=== PATIENT | female | born 1965 | race Caucasian/White ===

== ENCOUNTER → 2017-03-11 | Outpatient (CLI) | payer MEDICARE, OTHER ==
--- NOTE | 2017-03-11 15:10 | XR ---
Lumbar spine with flexion and extension views HISTORY: Low back pain 4 views of the lumbar spine submitted. Bone mineralization is reduced. Number vertebral bodies show preserved height and alignment. There is multilevel spondylosis. Some mild loss of disc height at the intervertebral levels. Sclerosis presen t in the posterior elements of the lower lumbar spine. Flexion and extension views show stable and an atomic alignment. Vascular calcifications noted incidentally. IMPRESSION: Osteopenia, degenerative disc disease and facet arthropathy.
--- NOTE | 2017-03-11 15:12 | XR ---
Bilateral hips HISTORY: Left hip pain 2 views of the left and 2 views of the right hip are submitted. No comparisons Bone mineralization is reduced. There is mild loss of joint space within the hips. Alignment is maint ained. Mild marginal spurring noted at the left hip. IMPRESSION: Some mild osteoarthritic change is suspected.
--- NOTE | 2017-03-11 15:12 | XR ---
Sacroiliac joints HISTORY: Pain, M 54.5 There are 2 views of each sacroiliac joints submitted on a total of 3 images. There is no ankylosis, erosion, or significant hypertrophic change. Bone mineralization is reduced. T here are probable vascular calcifications within the pelvis. IMPRESSION: Osteopenia.
== END | disposition home or self-care (01) ==
LOC: RADXRMAIN 14:20
PROVIDERS: ATTEND Psychiatry & Neurology Neurology
DX: M51.36 Other intervertebral disc degeneration, lumbar region (principal); M46.86 Other specified inflammatory spondylopathies, lumbar region; M85.88 Other specified disorders of bone density and structure, other site; M53.3 Sacrococcygeal disorders, not elsewhere classified; M25.559 Pain in unspecified hip
CPT/HCPCS: 72114; 72202; 73521

== ENCOUNTER 2017-04-05 16:24 | Inpatient (IN) | payer MEDICARE, OTHER ==
[2017-04-05] MEDS ORDERED: ONDANSETRON 4 MG/2 ML VIAL IVP STA ×2 (17:16→20:13)
[2017-04-05] MEDS ORDERED: HYDROmorphone 1 MG/ML 1 ML SYRINGE IVP STA ×2 (17:16→19:09)
[2017-04-05] MEDS: SODIUM CHLORIDE 0.9% 1,000 ML IV SCH (17:58)
--- NOTE | 2017-04-05 18:24 | ED ---
General Adult HPI - General Chief complaint: Abdominal Pain Stated complaint: left side abdominal swelling Time Seen by Provider: 04/05/17 16:51 Source: patient Mode of arrival: ambulatory Limitations: no limitations - History of Present Illness Initial comments: The patient is a 51-year-old female who presents to the ED with a chief complaint of dysuria and lower back pain. Patient states that her symptoms have been present over the course of the past 3 days. Patient states that she has felt fatigued over the course the past week as well. Patient notes nausea but no vomiting. Patient denies any diarrhea. Patient denies any fevers or chills. Patient states that she has a history of autoimmune hepatitis. She states that she currently has cirrhosis as well. Patient notes that she has had a history of frequent UTIs. She notes that she has had renal failure in the past. Patient denies any history of ureteral stone. The patient notes that her urine has been discolored urine she states it has a or just brown in color. She states that she has increased urinary frequency as well as dysuria. Patient notes that she takes lactulose as well as rifaximin for her cirrhosis. She states that she often skips the lactulose secondary to the fact that it causes her to have diarrhea. Patient notes that she has a history of splenomegaly. - Related Data Home Medications Medication Instructions Recorded Confirmed Albuterol Sulfate [Proventil Hfa] 2 puff INHALATION RT-Q6H PRN 04/05/17 04/05/17 Ascorbic Acid [Vitamin C] 250 mg PO DAILY 04/05/17 04/05/17 Atorvastatin [Lipitor] 20 mg PO HS 04/05/17 04/05/17 Cyclobenzaprine [Flexeril] 10 mg PO TID PRN 04/05/17 04/05/17 Divalproex Sodium [Depakote] 500 mg PO TID 04/05/17 04/05/17 Escitalopram Oxalate [Lexapro] 20 mg PO DAILY 04/05/17 04/05/17 Ferrous Sulfate [Feosol] 325 mg PO BID-W/MEALS 04/05/17 04/05/17 Furosemide [Lasix] 40 mg PO DAILY 04/05/17 04/05/17 Gabapentin [Neurontin] 300 mg PO TID 04/05/17 04/05/17 HYDROcodone/APAP 7.5-325MG [[place] 1 tab PO Q8H PRN 04/05/17 04/05/17 7.5-325] LORazepam [Ativan] 1 mg PO BID PRN 04/05/17 04/05/17 Lactulose 20 gm PO BID 04/05/17 04/05/17 Levothyroxine Sodium [Synthroid] 300 mcg PO QAM 04/05/17 04/05/17 Linagliptin [Tradjenta] 5 mg PO DAILY 04/05/17 04/05/17 Liothyronine Sodium [Cytomel] 5 mcg PO DAILY 04/05/17 04/05/17 Lisinopril [Zestril] 20 mg PO DAILY 04/05/17 04/05/17 Lurasidone HCl [Latuda] 20 mg PO W/SUPPER 04/05/17 04/05/17 Pioglitazone [Actos] 15 mg PO DAILY 04/05/17 04/05/17 Potassium Chloride ER [K-Dur 10] 10 meq PO DAILY 04/05/17 04/05/17 Ranitidine HCl [Zantac] 150 mg PO HS 04/05/17 04/05/17 Rifaximin [Xifaxan] 550 mg PO BID 04/05/17 04/05/17 Sennosides-Docusate Sodium 2 tab PO BID PRN 04/05/17 04/05/17 [Senokot-S] Ursodiol [Actigall] 300 mg PO BID 04/05/17 04/05/17 Venlafaxine HCl ER [Effexor Xr] 37.5 mg PO DAILY 04/05/17 04/05/17 Zolpidem [Ambien] 10 mg PO HS PRN 04/05/17 04/05/17 glipiZIDE [Glucotrol] 5 mg PO AC-BID 04/05/17 04/05/17 metFORMIN HCL [Metformin HCl] 1,000 mg PO BID-W/MEALS 04/05/17 04/05/17 traZODone HCL 100 mg PO HS 04/05/17 04/05/17 Allergies Allergy/AdvReac Type Severity Reaction Status Date / Time morphine Allergy Itching Verified 04/05/17 17:55 Review of Systems ROS Statement: Those systems with pertinent positive or pertinent negative responses have been documented in the HPI. ROS Other: All systems not noted in ROS Statement are negative. Constitutional: Denies: fever, chills, weakness Eyes: Denies: vision change ENT: Denies: ear pain, throat pain, dental pain Respiratory: Denies: cough, dyspnea, wheezes, hemoptysis Cardiovascular: Denies: chest pain Endocrine: Reports: fatigue Gastrointestinal: Reports: abdominal pain (lower back pain), nausea. Denies: vomiting, diarrhea, constipation Genitourinary: Reports: urgency, dysuria, frequency. Denies: hematuria Musculoskeletal: Reports: back pain Skin: Denies: rash, lesions, change in color Neurological: Denies: headache, weakness Psychiatric: Denies: anxiety, depression Past Medical History Past Medical History: Cancer, Diabetes Mellitus, Hypertension, Renal Disease, Rheumatoid Arthritis (RA), Thyroid Disorder Additional Past Medical History / Comment(s): Liver cirrhosis, heat murmor History of Any Multi-Drug Resistant Organisms: None Reported, MRSA Date of last positivie culture/infection: 2007 MDRO Source:: ankle Past Surgical History: Section, Cholecystectomy, Ear Surgery, Heart Catheterization, Hysterectomy, Joint Replacement, Orthopedic Surgery, Tonsillectomy Additional Past Surgical History / Comment(s): thyroid, bilateral knees Past Psychological History: Bipolar Smoking Status: Never smoker Past Alcohol Use History: None Reported Past Drug Use History: None Reported General Exam Limitations: no limitations General appearance: alert, in no apparent distress Head exam: Present: atraumatic, normocephalic Eye exam: Present: normal appearance, PERRL Pupils: Present: normal accommodation ENT exam: Present: normal exam, mucous membranes dry Neck exam: Present: normal inspection, full ROM Respiratory exam: Present: normal lung sounds bilaterally. Absent: respiratory distress, wheezes, rales, rhonchi, stridor Cardiovascular Exam: Present: regular rate, normal rhythm GI/Abdominal exam: Present: soft, tenderness (tenderness in the bilateral flank) . Absent: distended, guarding, rebound Extremities exam: Present: normal inspection, full ROM. Absent: tenderness Back exam: Present: tenderness (mild tenderness in the bilateral flank region) Neurological exam: Present: alert, oriented X3 Psychiatric exam: Present: normal affect, normal mood Skin exam: Present: warm, dry, intact, other (slight jaundice) Course Vital Signs 04/05/17 04/05/17 16:32 19:01 Temperature 96.9 F L Pulse Rate 104 H 103 H Respiratory 18 18 Rate Blood Pressure 116/71 129/60 O2 Sat by Pulse 97 94 L Oximetry EKG Findings - EKG Comments: EKG Findings:: EKG demonstrates normal sinus rhythm with a rate of 96. There are no concerning ST or T-wave changes. [place] and QRS intervals are within normal limits. Medical Decision Making - Medical Decision Making Patient is a 51-year-old female who presents to ED with a chief complaint of dysuria and lower back pain. Patient states that her symptoms have been present over the course the past 3-4 days. She notes that she has felt fatigued over the course the past week. Patient is immunocompromised secondary to autoimmune hepatitis, insulin-dependent diabetes. Will check an ultrasound of the abdomen to examine for any acute abnormality, including ascites or hydronephrosis of the kidneys. Will check CBC, BMP, Mag. Check urinalysis and urine culture. Provide with Dilaudid for pain control. 7:11 PM Spoke with Lucila Sandhu NP, who accepts admission of the patient. Patient is noted to have persistent lower back pain and UTI. She does not have a fever or elevation in her white blood cell count but is noted to be tachycardic. Concern given underlying immunocompromised status. Continue with IV fluids. Provide patient with dose of Rocephin and Gentamicin. - Lab Data Result diagrams: 04/05/17 17:55 04/05/17 17:55 Lab Results 04/05/17 04/05/17 04/05/17 Range/Units 17:55 17:55 17:55 WBC 5.4 (3.8-10.6) k/uL RBC 3.73 L (3.80-5.40) m/uL Hgb 11.0 L (11.4-16.0) gm/dL Hct 33.2 L (34.0-46.0) % MCV 88.8 (80.0-100.0) fL MCH 29.3 (25.0-35.0) pg MCHC 33.0 (31.0-37.0) g/dL RDW 16.7 H (11.5-15.5) % Plt Count 170 (150-450) k/uL Neutrophils % 59 % Lymphocytes % 33 % Monocytes % 5 % Eosinophils % 1 % Basophils % 0 % Neutrophils # 3.2 (1.3-7.7) k/uL Lymphocytes # 1.8 (1.0-4.8) k/uL Monocytes # 0.3 (0-1.0) k/uL Eosinophils # 0.1 (0-0.7) k/uL Basophils # 0.0 (0-0.2) k/uL Anisocytosis Slight Sodium 142 (137-145) mmol/L Potassium 5.0 (3.5-5.1) mmol/L Chloride 109 H (98-107) mmol/L Carbon Dioxide 21 L (22-30) mmol/L Anion Gap 12 mmol/L BUN 21 H (7-17) mg/dL Creatinine 0.99 (0.52-1.04) mg/dL Est GFR (MDRD) Af Amer >60 (>60 ml/min/1.73 sqM) Est GFR (MDRD) Non-Af 59 (>60 ml/min/1.73 sqM) Glucose 161 H (74-99) mg/dL Calcium 8.8 (8.4-10.2) mg/dL Magnesium 1.3 L (1.6-2.3) mg/dL Total Bilirubin 0.7 (0.2-1.3) mg/dL AST 25 (14-36) U/L ALT 39 (9-52) U/L Alkaline Phosphatase 136 H (38-126) U/L Total Protein 7.5 (6.3-8.2) g/dL Albumin 4.1 (3.5-5.0) g/dL TSH 0.093 L (0.465-4.680) mIU/L Urine Color Dark Yellow Urine Appearance Cloudy H (Clear) Urine pH 5.5 (5.0-8.0) Ur Specific [place] 1.028 (1.001-1.035) Urine Protein 2+ H (Negative) Urine Glucose (UA) Negative (Negative) Urine Ketones 1+ H (Negative) Urine Blood Small H (Negative) Urine Nitrite Negative (Negative) Urine Bilirubin 1+ H (Negative) Urine Urobilinogen 6.0 (<2.0) mg/dL Ur Leukocyte Esterase Large H (Negative) Urine RBC 18 H (0-5) /hpf Urine WBC >182 H (0-5) /hpf Urine WBC Clumps Many H (None) /hpf Ur Squamous Epith Cells 4 (0-4) /hpf Amorphous Sediment Rare H (None) /hpf Urine Bacteria Occasional H (None) /hpf Hyaline Casts 31 H (0-2) /lpf Urine Mucus Few H (None) /hpf Disposition Clinical Impression: Acute UTI, Immunocompromised state, Flank pain Disposition: ADMITTED IP TO THIS HOSP Condition: Stable Referrals: None,Stated [REFERRING] - 1-2 days Decision to Admit Reason: Admit from EC Decision Date: 04/05/17 Decision Time: 19:14
[2017-04-05 18:25] LABS: ALT 39 U/L (9-52); AST 25 U/L (14-36); Alkaline Phosphatase 136 U/L (38-126); Anion Gap 12 mmol/L; Blood Urea Nitrogen 21 mg/dL (7-17); Calcium 8.8 mg/dL (8.4-10.2); Carbon Dioxide 21 mmol/L (22-30); Chloride 109 mmol/L (98-107); Glucose 161 mg/dL (74-99); Magnesium 1.3 mg/dL (1.6-2.3); Non-African American GFR(MDRD) 59 (>60 ml/min/1.73 sqM); Sodium 142 mmol/L (137-145); Total Bilirubin 0.7 mg/dL (0.2-1.3); Total Protein 7.5 g/dL (6.3-8.2)
[2017-04-05 18:31] LABS: Amorphous Sediment,Urine Rare /hpf; Anisocytosis Slight; Appearance,Urine Cloudy (Clear); Bacteria,Urine Occasional /hpf; Basophils % (A) 0 %; Bilirubin,Urine 1+ (Negative); CH 29.2; Eosinophils # (A) 0.1 k/uL (0-0.7); Eosinophils % (A) 1 %; Glucose,Urine (UA) Negative (Negative); HCT 33.2 % (34.0-46.0); HDW 3.27; Ketones,Urine 1+ (Negative); Leukocyte Esterase,Urine Large (Negative); Luc # (Auto) 0.09; Luc % (Auto) 2; Lymphocytes # (A) 1.8 k/uL (1.0-4.8); Lymphocytes % (A) 33 %; MCH 29.3 pg (25.0-35.0); MCV 88.8 fL (80.0-100.0); Mean Platelet Volume 7.5; Monocytes # (A) 0.3 k/uL (0-1.0); Monocytes % (A) 5 %; Mucus,Urine Few /hpf; Neutrophils # (A) 3.2 k/uL (1.3-7.7); Neutrophils % (A) 59 %; Nitrite,Urine Negative (Negative); PH, Urine 5.5 (5.0-8.0); Particle Count 10131; Protein,Urine 2+ (Negative); RBC 3.73 m/uL (3.80-5.40); RBC,Urine 18 /hpf (0-5); RDW 16.7 % (11.5-15.5); Specific Gravity,Urine 1.028 (1.001-1.035); Squamous Epithelial Cell,Urine 4 /hpf (0-4); UA Billing (MACRO vs. MICRO) MICRO; WBC 5.4 k/uL (3.8-10.6); WBC (Perox) 5.49; WBC,Urine >182 /hpf (0-5)
--- NOTE | 2017-04-05 18:49 | US ---
EXAMINATION TYPE: US abdomen complete DATE OF EXAM: 04/05/2017 COMPARISON: NONE CLINICAL HISTORY: Bilateral flank pain. Left upper abdomen pain. Difficult/limited exam due to patient body habitus and overlying bowel gas EXAM MEASUREMENTS: Liver Length: 20.7 cm Gallbladder Wall: Surgically absent CBD: 0.4cm Spleen: 17.1 cm Right Kidney: 10.6 x 3.7 x 5.1 cm Left Kidney: 10.4 x 4.8 x 4.4 cm Pancreas: Obscured by bowel gas Liver: Increased attenuation, enlarged, heterogeneous, nodular appearing contour Gallbladder: Surgically absent Evidence for sonographic García's sign: No CBD: wnl as visualized, distal portion obscured by bowel gas Spleen: Enlarged Right Kidney: No hydronephrosis or masses seen Left Kidney: No hydronephrosis or masses seen Upper IVC: wnl Abd Aorta: Limited visualization due to overlying bowel, wnl as visualized All four quadrants scanned, No ascites visualized IMPRESSION: There is splenomegaly. No dilated ducts. Cholecystectomy noted.
[2017-04-05] MEDS ORDERED: GENTAMICIN 200 MG in SODIUM CHLORIDE 0.9% 100 ML IV ONE (19:00)
[2017-04-05] MEDS ORDERED: HYDROcodone/APAP 5-325MG 1 EACH TAB PO PRN (19:14)
[2017-04-05] MEDS ORDERED: NALOXONE 0.4 MG/ML 1 ML VIAL IV PRN (19:14)
[2017-04-05] MEDS: MAGNESIUM SULFATE-D5W PMX 1 GM in DEXTROSE/WATER 1 100ML.BAG IVPB SCH ×2 (21:25→22:27)
[2017-04-05 21:26] LABS: Glucose,Whole Blood 170 mg/dL (75-99)
[2017-04-05] MEDS ORDERED: LORazepam 1 MG TAB PO PRN (21:29)
[2017-04-05] MEDS ORDERED: ALBUTEROL NEBULIZED 2.5 MG/3 ML INHALATION PRN (21:29)
[2017-04-05] MEDS: LACTULOSE 20 GM/30 ML CUP PO SCH (22:51)
[2017-04-05] MEDS: traZODone HCL 100 MG TAB PO SCH (23:21)
[2017-04-05] MEDS: DIVALPROEX 500 MG TABLET.DR PO SCH (23:21)
[2017-04-05] MEDS: FAMOTIDINE 20 MG TAB PO SCH (23:21)
[2017-04-05] MEDS: ZOLPIDEM 10 MG TAB PO PRN (23:23)
[2017-04-05] MEDS: INSULIN LISPRO (humaLOG) 300 UNIT/3 ML VIAL SQ SCH (23:29)
[2017-04-05] MEDS: HYDROmorphone 1 MG/ML 1 ML SYRINGE IV PRN (23:33)
[2017-04-05 23:47] LABS: Glucose,Whole Blood 229 mg/dL (75-99)
[2017-04-06] MEDS: LEVOTHYROXINE 100 MCG TAB PO SCH (05:33)
[2017-04-06] MEDS: SODIUM CHLORIDE 0.9% 1,000 ML IV SCH ×2 (05:34→20:30)
[2017-04-06] MEDS: HYDROmorphone 1 MG/ML 1 ML SYRINGE IV PRN ×3 (06:09→21:04)
[2017-04-06 07:29] LABS: Glucose,Whole Blood 151 mg/dL (75-99)
[2017-04-06] MEDS: DIVALPROEX 500 MG TABLET.DR PO SCH ×3 (08:07→21:03)
[2017-04-06] MEDS: VENLAFAXINE HCL ER 37.5 MG CAP PO SCH (08:07)
[2017-04-06] MEDS: ASCORBIC ACID 500 MG TAB PO SCH (08:07)
[2017-04-06] MEDS: metFORMIN 500 MG TAB PO SCH ×2 (08:07→17:21)
[2017-04-06] MEDS: glipiZIDE 5 MG TAB PO SCH ×2 (08:07→17:21)
[2017-04-06] MEDS: LISINOPRIL 20 MG TAB PO SCH (08:08)
[2017-04-06] MEDS: ESCITALOPRAM 20 MG TAB PO SCH (08:08)
[2017-04-06] MEDS: LINAGLIPTIN 5 MG TABLET PO SCH (08:08)
[2017-04-06] MEDS: LIOTHYRONINE SODIUM 5 MCG TAB PO SCH (08:08)
[2017-04-06] MEDS: RIFAXIMIN 550 MG TABLET PO SCH ×2 (08:08→21:03)
[2017-04-06] MEDS: PIOGLITAZONE 15 MG TAB PO SCH (08:08)
[2017-04-06] MEDS: URSODIOL 300 MG CAP PO SCH ×2 (08:09→20:32)
[2017-04-06] MEDS: LACTULOSE 20 GM/30 ML CUP PO SCH ×2 (08:09→20:32)
[2017-04-06 08:10] LABS: Anisocytosis Slight; CH 28.7; CHCM 31.2; HCT 29.3 % (34.0-46.0); HDW 3.17; Hypochromasia Moderate; MCH 29.3 pg (25.0-35.0); MCHC 31.6 g/dL (31.0-37.0); MCV 92.6 fL (80.0-100.0); Mean Platelet Volume 6.7; RBC 3.16 m/uL (3.80-5.40); RDW 16.5 % (11.5-15.5); WBC 4.6 k/uL (3.8-10.6); WBC (Perox) 4.62
[2017-04-06 08:12] LABS: INR 1.1 (<1.1); Prothrombin Time 10.7 sec (9.0-12.0)
[2017-04-06] MEDS: HYDROcodone/APAP 5-325MG 1 EACH TAB PO PRN ×2 (08:15→17:24)
[2017-04-06] MEDS: INSULIN LISPRO (humaLOG) 300 UNIT/3 ML VIAL SQ SCH ×4 (08:15→21:17)
[2017-04-06 08:28] LABS: HGB 9.3 gm/dL (11.4-16.0)
[2017-04-06 08:33] LABS: ALT 27 U/L (9-52); AST 24 U/L (14-36); Alkaline Phosphatase 103 U/L (38-126); Anion Gap 9 mmol/L; Blood Urea Nitrogen 21 mg/dL (7-17); Carbon Dioxide 22 mmol/L (22-30); Chloride 110 mmol/L (98-107); Glucose 150 mg/dL (74-99); Magnesium 1.8 mg/dL (1.6-2.3); Non-African American GFR(MDRD) >60 (>60 ml/min/1.73 sqM); Phosphorous 4.3 mg/dL (2.5-4.5); Potassium 5.4 mmol/L (3.5-5.1); Sodium 141 mmol/L (137-145); Total Bilirubin 0.6 mg/dL (0.2-1.3); Total Protein 6.4 g/dL (6.3-8.2)
[2017-04-06] MEDS ORDERED: POTASSIUM CHLORIDE ER 10 MEQ TAB.ER.PRT PO SCH (09:00)
[2017-04-06 10:36] LABS: Add Differential Manual Differential
[2017-04-06 11:11] LABS: Metamyelocytes % 0.5 %; Nucleated Red Blood Cells 0 /100 WBC (0-0); Total Cells Counted 200
[2017-04-06 11:14] LABS: Manual Review Performed; RBC Morphology Normal
[2017-04-06 12:06] LABS: Glucose,Whole Blood 148 mg/dL (75-99)
[2017-04-06] MEDS ORDERED: SENNOSIDES-DOCUSATE SODIUM 1 EACH TAB PO PRN (16:16)
[2017-04-06] MEDS ORDERED: CYCLOBENZAPRINE 10 MG TAB PO PRN (16:16)
[2017-04-06] MEDS: LURASIDONE 40 MG TAB PO SCH (17:21)
[2017-04-06 17:22] LABS: Glucose,Whole Blood 120 mg/dL (75-99)
[2017-04-06] MEDS: FERROUS SULFATE 325 MG TAB PO SCH (17:22)
[2017-04-06] MEDS: ATORVASTATIN 20 MG TAB PO SCH (20:30)
[2017-04-06] MEDS: FAMOTIDINE 20 MG TAB PO SCH (20:31)
[2017-04-06] MEDS: traZODone HCL 100 MG TAB PO SCH (20:32)
[2017-04-06] MEDS: GABAPENTIN 300 MG CAP PO SCH (21:04)
[2017-04-06 21:42] LABS: Glucose,Whole Blood 102 mg/dL (75-99)
[2017-04-06] MEDS: ZOLPIDEM 10 MG TAB PO PRN (22:24)
--- NOTE | 2017-04-06 22:52 | HP ---
CHIEF COMPLAINTS: Abdominal pain and dysuria. HISTORY OF PRESENT ILLNESS: This is a 51-year-old woman with a past history medical history of multiple medical problems, including diabetes mellitus type 2, history of hypertension, history of renal disease, history of rheumatoid arthritis, hypothyroidism, liver cirrhosis, heart murmur, thyroid cancer, history of cholecystectomy, history of section being followed by primary physician in [facility], was having increased dysuria and other symptomatology. Patient was complaining of back pain. Because of concern of UTI, patient came to [facility] and was admitted for further evaluation and treatment. The potassium was found to be 5.4, sugars elevated and history of UTI. Patient admitted for further evaluation and treatment. The white count is 5.5, hemoglobin is 11. There is no history of any fever, rigors, chills. No history of headache, loss of consciousness, seizures. PAST MEDICAL HISTORY: Diabetes mellitus type 2, history of hypertension, history of chronic renal disease, history of rheumatoid arthritis, hypothyroidism, liver cirrhosis, heart murmur, thyroid cancer, history of section and cholecystectomy. Home medications prior to admission include: 1. Trazodone 100 mg p.o. q.h.s. 2. Metformin 1000 mg b.i.d. with meals. 3. Glucotrol 5 mg a.c. b.i.d. 4. Ambien 10 mg q.h.s. p.r.n. 5. Effexor-XR 37.5 mg p.o. daily. 6. Actigall 300 mg p.o. b.i.d. 7. Senokot-S 2 tablets p.o. b.i.d. p.r.n. 8. Xifaxan 150 mg p.o. b.i.d. 9. Zantac 150 mg at bedtime. 10. K-Dur 10 mg p.o. daily. 11. Actos 15 mg p.o. daily. 12. Latuda 20 mg with supper. 13. Zestril 20 mg p.o. daily. 14. Cytomel 5 mcg p.o. daily. 15. Tradjenta 5 mg p.o. daily. 16. Synthroid 300 mcg p.o. q.a.m. 17. Lactulose 20 g p.o. b.i.d. 18. Ativan 0.1 mg b.i.d. p.r.n. 19. [place] 7.5 mg q.8 p.r.n. 20. Neurontin 300 mg p.o. t.i.d. 21. Lasix 40 mg p.o. daily. 22. Iron sulfate 320 mg p.o. daily with a meal. 23. Lexapro 20 mg p.o. daily. 24. Depakote 500 mg p.o. t.i.d. 25. Flexeril 10 mg p.o. t.i.d. p.r.n. 26. Lipitor 20 mg q.h.s. 27. ( ) mg p.o. daily. 28. Proventil 2 puffs every 6 hours p.r.n. ALLERGIES ARE MORPHINE. FAMILY HISTORY: No history of heart disease or strokes in the family. SOCIAL HISTORY: No history of smoking. No history of alcohol intake. REVIEW OF SYSTEMS: ENT: No diminished hearing, diminished vision. CARDIOVASCULAR: No angina or palpitations. RESPIRATORY: As mentioned earlier. GI: No nausea. : No dysuria. NERVOUS: No numbness or weakness. ALLERGY/IMMUNOLOGY: No asthma or hay fever. MUSCULOSKELETAL: As mentioned earlier. HEMATOLOGY/ONCOLOGY: No history of anemia. ENDOCRINE: No history of diabetes. CONSTITUTIONAL: As mentioned earlier. DERMATOLOGY: Negative. RHEUMATOLOGY: Negative. PSYCHIATRY: As mentioned earlier. PHYSICAL EXAMINATION: Alert and oriented x3. Pulse is 72, blood pressure 102/50, respirations 16, temperature 97.8, pulse ox 93% on room air. HEENT: Conjunctivae normal. Oral mucosa moist. NECK: No jugular venous distention. No carotid bruits. No lymph node enlargement. CARDIOVASCULAR: S1 and S2 muffled. No S3. No S4. RESPIRATORY: Breath sounds diminished in the bases. A few scattered rhonchi. No crackles. ABDOMEN: Soft. Minimal diffuse tenderness present at the costovertebral angle. No guarding or rigidity. No mass palpable. Bowel sounds present. No hepatosplenomegaly. LEGS: No edema. No swelling. NERVOUS SYSTEM: Higher function as mentioned earlier. Moves all 4 limbs. LYMPHATIC: No lymph nodes palpable in neck, axillae or groins. SKIN: No ulcer, rash or bleeding. Labs are WBC 12.6, hemoglobin is 8.3. Potassium 5.4. Creatinine and BUN are normal. Sugars are noted. UA noted. ASSESSMENT: 1. Severe urinary tract infection with pyelonephritis with abdominal and back pain, present on admission. 2. Anemia, normocytic anemia of chronic disease. 3. Mild hyperkalemia, present on admission. 4. Dehydration, present on admission. 5. Hypomagnesemia, present on admission. 6. Mild hyperammonemia. 7. History of diabetes mellitus type 2. 8. History of hypertension, essential. 9. History of chronic renal disease without any renal failure. 10. History of rheumatoid arthritis. 11. Hypothyroidism. 12. History of liver cirrhosis. 13. History of heart murmur. 14. History of thyroid cancer. 15. History of methicillin-resistant Staphylococcus aureus. 16. History of cholecystectomy. 17. History of degenerative joint disease. 18. Bipolar, depression, not otherwise specified. 19. Obesity with a body mass index of 47.9. 20. FULL CODE. RECOMMENDATIONS AND DISCUSSION: This 51-year-old with multiple complex medical issues, will monitor the patient closely, continue with broad-spectrum IV antibiotics. Otherwise, I would also recommend cultures. Continue with the rest of the medications and DVT prophylaxis. Guarded prognosis because of multiple complex medical issues. Further recommendations to follow. See orders for further details.
[2017-04-07] MEDS: LEVOTHYROXINE 100 MCG TAB PO SCH (06:10)
[2017-04-07] MEDS: INSULIN LISPRO (humaLOG) 300 UNIT/3 ML VIAL SQ SCH ×4 (07:23→22:10)
[2017-04-07 07:51] LABS: Glucose,Whole Blood 106 mg/dL (75-99)
[2017-04-07 08:08] LABS: Anisocytosis Slight; Basophils % (A) 0 %; CH 28.6; CHCM 30.6; Eosinophils # (A) 0.1 k/uL (0-0.7); Eosinophils % (A) 2 %; HCT 29.6 % (34.0-46.0); HDW 3.13; HGB 9.1 gm/dL (11.4-16.0); Hypochromasia Marked; Luc % (Auto) 3; Lymphocytes # (A) 1.8 k/uL (1.0-4.8); Lymphocytes % (A) 48 %; MCH 28.9 pg (25.0-35.0); MCHC 30.7 g/dL (31.0-37.0); MCV 94.2 fL (80.0-100.0); Mean Platelet Volume 7.2; Monocytes # (A) 0.2 k/uL (0-1.0); Monocytes % (A) 6 %; Neutrophils # (A) 1.6 k/uL (1.3-7.7); Neutrophils % (A) 41 %; RBC 3.14 m/uL (3.80-5.40); RDW 16.8 % (11.5-15.5); WBC 3.9 k/uL (3.8-10.6); WBC (Perox) 4.22
[2017-04-07] MEDS: LACTULOSE 20 GM/30 ML CUP PO SCH ×2 (08:17→22:08)
[2017-04-07 08:20] LABS: Anion Gap 9 mmol/L; Blood Urea Nitrogen 21 mg/dL (7-17); Calcium 8.8 mg/dL (8.4-10.2); Carbon Dioxide 22 mmol/L (22-30); Chloride 109 mmol/L (98-107); Glucose 107 mg/dL (74-99); Non-African American GFR(MDRD) >60 (>60 ml/min/1.73 sqM); Potassium 5.7 mmol/L (3.5-5.1); Sodium 140 mmol/L (137-145)
[2017-04-07] MEDS: HYDROcodone/APAP 5-325MG 1 EACH TAB PO PRN ×3 (08:20→22:17)
[2017-04-07] MEDS: LIOTHYRONINE SODIUM 5 MCG TAB PO SCH (08:21)
[2017-04-07] MEDS: LISINOPRIL 20 MG TAB PO SCH (08:21)
[2017-04-07] MEDS: ESCITALOPRAM 20 MG TAB PO SCH (08:21)
[2017-04-07] MEDS: DIVALPROEX 500 MG TABLET.DR PO SCH ×3 (08:21→22:09)
[2017-04-07] MEDS: PIOGLITAZONE 15 MG TAB PO SCH (08:21)
[2017-04-07] MEDS: LINAGLIPTIN 5 MG TABLET PO SCH (08:21)
[2017-04-07] MEDS: metFORMIN 500 MG TAB PO SCH ×2 (08:21→17:38)
[2017-04-07] MEDS: glipiZIDE 5 MG TAB PO SCH ×2 (08:21→17:38)
[2017-04-07] MEDS: RIFAXIMIN 550 MG TABLET PO SCH ×2 (08:22→22:08)
[2017-04-07] MEDS: FERROUS SULFATE 325 MG TAB PO SCH ×2 (08:22→17:38)
[2017-04-07] MEDS: URSODIOL 300 MG CAP PO SCH ×2 (08:22→22:09)
[2017-04-07] MEDS: VENLAFAXINE HCL ER 37.5 MG CAP PO SCH (08:22)
[2017-04-07] MEDS: GABAPENTIN 300 MG CAP PO SCH ×3 (08:23→22:09)
[2017-04-07] MEDS: ASCORBIC ACID 500 MG TAB PO SCH (08:23)
[2017-04-07] MEDS ORDERED: SODIUM POLYSTYRENE SULFONATE 15 GM/60 ML BOTTLE PO ONE (09:57)
[2017-04-07] MEDS: SODIUM CHLORIDE 0.9% 1,000 ML IV SCH ×2 (10:56→20:20)
[2017-04-07 13:00] LABS: Glucose,Whole Blood 140 mg/dL (75-99)
[2017-04-07] MEDS: HYDROmorphone 1 MG/ML 1 ML SYRINGE IV PRN ×2 (13:26→20:21)
--- NOTE | 2017-04-07 16:29 | P.PN ---
Subjective Date of service 04/11/2017. Personal being dictated for Dr. Avila. Interval history: Is a 51-year-old female admitted with severe UTI with pyelonephritis accompanied by abdominal and back pain and multiple other medical issues. Complains of ongoing "spleen pain"and points to left upper quadrant. Mild hyperammonemia, refusing lactulose. Hyperkalemic, K5.7. Good diet intake, consuming 75-100% of cardiac diet. Positive bowel movement this morning .Afebrile, normal WBC, urine culture negative. Blood sugars controlled. Review of systems: HEENT: Denies headache or focal deficits. Denies any dizziness or lightheadedness. Respiratory: Denies any increased shortness of breath. Cardiac: Denies any chest pain, palpitations. GI: Denies any nausea, vomiting, or diarrhea. Complains of "spleen pain" : Denies any dysuria. Denies frequency or urgency. Psychiatry: Denies any anxiety or depression. Active Medications Hydrocodone Bitart/Acetaminophen ([place] 5-325) 1 each PO Q6HR PRN PRN Reason: Moderate Pain Last Admin: 04/07/17 15:12 Dose: 1 each Albuterol Sulfate (Ventolin Nebulized) 2.5 mg INHALATION RT-Q6H PRN PRN Reason: Shortness Of Breath Or Wheezing Ascorbic Acid (Vitamin C) 250 mg PO DAILY [facility] Last Admin: 04/07/17 08:23 Dose: 250 mg Atorvastatin Calcium (Lipitor) 20 mg PO [facility] Last Admin: 04/06/17 20:30 Dose: 20 mg Cyclobenzaprine HCl (Flexeril) 10 mg PO TID PRN PRN Reason: Muscle Spasm Divalproex Sodium (Depakote) 500 mg PO TID [facility] Last Admin: 04/07/17 08:21 Dose: 500 mg Escitalopram Oxalate (Lexapro) 20 mg PO DAILY [facility] Last Admin: 04/07/17 08:21 Dose: 20 mg Famotidine (Pepcid) 20 mg PO HS [facility] Last Admin: 04/06/17 20:31 Dose: 20 mg Ferrous Sulfate (Feosol) 325 mg PO BID-W/MEALS [facility] Last Admin: 04/07/17 08:22 Dose: 325 mg Gabapentin (Neurontin) 300 mg PO TID [facility] Last Admin: 04/07/17 08:23 Dose: 300 mg Glipizide (Glucotrol) 5 mg PO AC-BID [facility] Last Admin: 04/07/17 08:21 Dose: 5 mg Hydromorphone HCl (Dilaudid) 0.5 mg IV Q6H PRN PRN Reason: Severe Pain Last Admin: 04/07/17 13:26 Dose: 0.5 mg Sodium Chloride (Saline 0.9%) 1,000 mls @ 75 mls/hr IV .[id number] [facility] Last Admin: 04/07/17 10:56 Dose: Not Given Ceftriaxone Sodium 1,000 mg/ (Sodium Chloride) 50 mls @ 100 mls/hr IVPB Q24H [facility] Last Admin: 04/06/17 17:24 Dose: 100 mls/hr Insulin Human Lispro (Humalog) 0 unit SQ ACHS [facility] PRN Reason: Protocol Last Admin: 04/07/17 13:26 Dose: 1 unit Lactulose (Cephulac) 20 gm PO BID [facility] Last Admin: 04/07/17 08:17 Dose: Not Given Levothyroxine Sodium (Synthroid) 300 mcg PO QAM@0630 [facility] Last Admin: 04/07/17 06:10 Dose: 300 mcg Linagliptin (Tradjenta) 5 mg PO DAILY [facility] Last Admin: 04/07/17 08:21 Dose: 5 mg Liothyronine Sodium (Cytomel) 5 mcg PO DAILY [facility] Last Admin: 04/07/17 08:21 Dose: 5 mcg Lisinopril (Zestril) 20 mg PO DAILY [facility] Last Admin: 04/07/17 08:21 Dose: 20 mg Lorazepam (Ativan) 1 mg PO BID PRN PRN Reason: Anxiety Last Admin: 04/07/17 08:21 Dose: 1 mg Lurasidone HCl (Latuda) 20 mg PO W/SUPPER [facility] Last Admin: 04/06/17 17:21 Dose: 20 mg Metformin HCl (Glucophage) 1,000 mg PO BID-W/MEALS [facility] Last Admin: 04/07/17 08:21 Dose: 1,000 mg Naloxone HCl (Narcan) 0.2 mg IV Q2M PRN PRN Reason: Opioid Reversal Pioglitazone HCl (Actos) 15 mg PO DAILY [facility] Last Admin: 04/07/17 08:21 Dose: 15 mg Rifaximin (Xifaxan) 550 mg PO BID [facility] Last Admin: 04/07/17 08:22 Dose: 550 mg [place]/Docusate Sodium (Senokot-S) 2 each PO BID PRN PRN Reason: Constipation Trazodone HCl (Desyrel) 100 mg PO HS [facility] Last Admin: 04/06/17 20:32 Dose: 100 mg Ursodiol (Actigall) 300 mg PO BID [facility] Last Admin: 04/07/17 08:22 Dose: 300 mg Venlafaxine HCl (Effexor Xr) 37.5 mg PO DAILY [facility] Last Admin: 04/07/17 08:22 Dose: 37.5 mg Zolpidem Tartrate (Ambien) 10 mg PO HS PRN PRN Reason: Insomnia Last Admin: 04/06/17 22:24 Dose: 10 mg Objective - Vital Signs Vital signs: Vital Signs Temp 98.4 F 04/07/17 15:00 Pulse 63 04/07/17 15:00 Resp 18 04/07/17 15:00 BP 107/61 04/07/17 15:00 Pulse Ox 94 L 04/07/17 15:00 Intake & Output 04/06/17 04/07/17 04/07/17 18:59 06:59 18:59 Intake Total 887 300 Balance 887 300 Intake: Oral 887 300 Other: Voiding Method Toilet Toilet Toilet # Voids 2 1 3 # Bowel Movements 1 - Exam PHYSICAL EXAM: VITAL SIGNS: [As above] GENERAL: [Sitting up in bed, no acute distress] HEENT: [Pupils equal conjunctiva normal. No conjunctival pallor, oral mucosa moist] NECK: [Supple, no JVD] RESPIRATORY EFFORT:[ Normal] LUNGS: [Diminished, no wheezes rhonchi or crackles] CARDIOVASCULAR[ regular S1 and S2, no murmurs rubs or gallops, no edema] GI: [Abdomen soft, nondistended, minimal diffuse [place] vertebral angle tenderness, no guarding, no rigidity. No hepatosplenomegaly, positive bowel sounds.] PSYCH: [Alert and oriented -3, mood and affect normal.] NEURO: No focal deficits, moves all 4 extremities, strength and sensation intact. - Labs CBC & Chem 7: 04/07/17 07:36 04/07/17 07:36 Labs: Abnormal Lab Results - Last 24 Hours (Table) 04/06/17 04/06/17 04/07/17 Range/Units 17:16 21:15 07:27 RBC (3.80-5.40) m/uL Hgb (11.4-16.0) gm/dL Hct (34.0-46.0) % MCHC (31.0-37.0) g/dL RDW (11.5-15.5) % Plt Count (150-450) k/uL Potassium (3.5-5.1) mmol/L Chloride (98-107) mmol/L BUN (7-17) mg/dL Glucose (74-99) mg/dL POC Glucose (mg/dL) 120 H 102 H 106 H (75-99) mg/dL 04/07/17 04/07/17 04/07/17 Range/Units 07:36 07:36 12:23 RBC 3.14 L (3.80-5.40) m/uL Hgb 9.1 L (11.4-16.0) gm/dL Hct 29.6 L (34.0-46.0) % MCHC 30.7 L (31.0-37.0) g/dL RDW 16.8 H (11.5-15.5) % Plt Count 128 L (150-450) k/uL Potassium 5.7 H (3.5-5.1) mmol/L Chloride 109 H (98-107) mmol/L BUN 21 H (7-17) mg/dL Glucose 107 H (74-99) mg/dL POC Glucose (mg/dL) 140 H (75-99) mg/dL Microbiology - Last 24 Hours (Table) 04/05/17 17:55 Urine Culture - Final Urine,Voided Assessment and Plan Plan: 1. Severe UTI with pyelonephritis with abdominal and back pain, present on admission. 2. [ Anemia, normocytic of chronic disease]. 3. [ Hyperkalemia 4. [ Dehydration, present on admission]. 5. [ Hypomagnesemia]. 6. [ Mild hyperammonemia]. Refusing lactulose. 7. [ Hyperkalemia]. 8. Diabetes mellitus type 2 9. Essential hypertension 10. Chronic renal disease without acute renal failure 11. Rheumatoid arthritis 12. Hypothyroidism 13. History of liver cirrhosis 14. History of thyroid cancer 15. History of MRSA 16. Degenerative joint disease 17. Bipolar, depression, not otherwise specified. 18. Morbid Obesity, BMI 47.9 Plan: Continue on current medication regime , IV antibiotics, GI and DVT prophylaxis, monitoring and symptomatic treatment. Kayexalate ordered for hyperkalemia . Repeat lytes at 1600. Continues complaining of left upper quadrant pain, GI consulted. Dilaudid frequency/dose decreased for moderate breakthrough pain only. Discharge planning in progress for tomorrow. The impression and plan of care has been dictated as directed. : I performed a H&P examination of this patient and discussed the same with the dictator. I agree with the dictator's note. Any additional findings/opinions/ etc. will be noted.
[2017-04-07] MEDS ORDERED: SODIUM POLYSTYRENE SULFONATE 15 GM/60 ML BOTTLE PO STA (17:07)
[2017-04-07] MEDS: LURASIDONE 40 MG TAB PO SCH (17:38)
[2017-04-07 17:39] LABS: Glucose,Whole Blood 135 mg/dL (75-99)
[2017-04-07 21:29] LABS: Glucose,Whole Blood 140 mg/dL (75-99)
[2017-04-07] MEDS: ATORVASTATIN 20 MG TAB PO SCH (22:08)
[2017-04-07] MEDS: traZODone HCL 100 MG TAB PO SCH (22:09)
[2017-04-07] MEDS: FAMOTIDINE 20 MG TAB PO SCH (22:09)
[2017-04-07] MEDS: ZOLPIDEM 10 MG TAB PO PRN (22:17)
--- NOTE | 2017-04-08 05:24 | PN ---
DATE OF SERVICE: 04/07/2017 This 51-year-old woman who was admitted with multiple medical problems is being closely monitored. The patient with severe UTI with pyelonephritis. Seen and evaluated the patient along with the nurse practitioner. Please refer to nurse practitioner notes and impression documented for further information.
[2017-04-08] MEDS: LEVOTHYROXINE 100 MCG TAB PO SCH (06:00)
[2017-04-08 07:25] LABS: Glucose,Whole Blood 142 mg/dL (75-99)
[2017-04-08 07:57] VITALS: BP 113/80; PULSE 95; RESP 19; TEMP 98.3
[2017-04-08] MEDS: glipiZIDE 5 MG TAB PO SCH (08:20)
[2017-04-08] MEDS: DIVALPROEX 500 MG TABLET.DR PO SCH (08:20)
[2017-04-08] MEDS: INSULIN LISPRO (humaLOG) 300 UNIT/3 ML VIAL SQ SCH ×2 (08:20→12:00)
[2017-04-08] MEDS: LACTULOSE 20 GM/30 ML CUP PO SCH (08:20)
[2017-04-08] MEDS: ESCITALOPRAM 20 MG TAB PO SCH (08:21)
[2017-04-08] MEDS: LINAGLIPTIN 5 MG TABLET PO SCH (08:21)
[2017-04-08] MEDS: metFORMIN 500 MG TAB PO SCH (08:21)
[2017-04-08] MEDS: GABAPENTIN 300 MG CAP PO SCH (08:21)
[2017-04-08] MEDS: URSODIOL 300 MG CAP PO SCH (08:21)
[2017-04-08] MEDS: RIFAXIMIN 550 MG TABLET PO SCH (08:21)
[2017-04-08] MEDS: LIOTHYRONINE SODIUM 5 MCG TAB PO SCH (08:22)
[2017-04-08] MEDS: ASCORBIC ACID 500 MG TAB PO SCH (08:22)
[2017-04-08] MEDS: PIOGLITAZONE 15 MG TAB PO SCH (08:22)
[2017-04-08] MEDS: FERROUS SULFATE 325 MG TAB PO SCH (08:23)
[2017-04-08] MEDS: LISINOPRIL 20 MG TAB PO SCH (08:23)
[2017-04-08] MEDS: VENLAFAXINE HCL ER 37.5 MG CAP PO SCH (08:24)
[2017-04-08] MEDS: HYDROcodone/APAP 5-325MG 1 EACH TAB PO PRN ×2 (08:38→13:49)
[2017-04-08 09:52] LABS: Anisocytosis Slight; Basophils % (A) 1 %; CHCM 31.3; Eosinophils # (A) 0.1 k/uL (0-0.7); Eosinophils % (A) 2 %; HCT 30.5 % (34.0-46.0); HGB 9.6 gm/dL (11.4-16.0); Hypochromasia Moderate; Luc # (Auto) 0.11; Luc % (Auto) 3; Lymphocytes # (A) 1.4 k/uL (1.0-4.8); Lymphocytes % (A) 38 %; MCH 29.2 pg (25.0-35.0); MCHC 31.3 g/dL (31.0-37.0); MCV 93.2 fL (80.0-100.0); Mean Platelet Volume 7.1; Monocytes # (A) 0.3 k/uL (0-1.0); Monocytes % (A) 7 %; Neutrophils # (A) 1.9 k/uL (1.3-7.7); Neutrophils % (A) 51 %; RBC 3.28 m/uL (3.80-5.40); RDW 16.9 % (11.5-15.5); WBC 3.8 k/uL (3.8-10.6); WBC (Perox) 3.77
[2017-04-08 10:02] LABS: Anion Gap 9 mmol/L; Blood Urea Nitrogen 16 mg/dL (7-17); Calcium 8.8 mg/dL (8.4-10.2); Carbon Dioxide 25 mmol/L (22-30); Chloride 108 mmol/L (98-107); Glucose 159 mg/dL (74-99); Non-African American GFR(MDRD) >60 (>60 ml/min/1.73 sqM); Potassium 4.6 mmol/L (3.5-5.1); Sodium 142 mmol/L (137-145)
[2017-04-08] MEDS ORDERED: RX INFO: IV CONTRAST WAS GIVEN 1 EACH MISC MISCELLANE PRN (10:37)
--- NOTE | 2017-04-08 10:41 | P.CONS ---
History of Present Illness - Reason for Consult Consult date: 04/08/17 abdominal pain Requesting physician: Cruz Avila - History of Present Illness 51-year-old female with a past medical history of diabetes mellitus type 2, hypertension, renal disease, RA, hypothyroidism, liver cirrhosis, obesity, hepatosplenomegaly, thyroid carcinoma, cholecystectomy presents with back pain secondary to severe urinary tract infection and pyelonephritis. Patient has been evaluated at [facility] for her history of cirrhosis and states she thinks it's autoimmune related. Home medications include lactulose Lasix and Actigall. Follow-up appointment at [facility] scheduled next month. Consultation requested for left upper quadrant abdominal pain. Patient states "I have spleen pain". Pain has been present for the last month. Denies weight loss, fever, chills, hematemesis, hematochezia, melena. Ultrasound abdomen liver link 20.7 cm. CBD 0.4 cm. Spleen 17.1 cm. Hemoglobin 9.1-11.0. Platelet 128-170. INR 1.1. Total bilirubin/LFTs normal. Review of Systems Constitutional: Denies fever, chills, sweats, weight gain, or loss. HEENT: Negative for migraines, blurred vision or loss, earaches, drainage, tinnitus, oral mucosal lesions, dysphagia, or odynophagia. CARDIAC: Hypertension. Negative for chest pain, arrhythmias, or palpitation. RESPIRATORY: Negative for shortness of breath, hemoptysis, cough, or sputum production. GI: See HPI for pertinent findings. : Negative for hematuria, urgency, frequency, polyuria, or dysuria. GYNc: Denies possibility of . Negative vaginal discharge. MUSCULOSKELETAL: Negative for muscle aches, swelling, arthritis, and arthralgias. NEUROLOGIC: Negative for stroke or TIA. ENDOCRINE: Diabetes mellitus. Hypothyroidism. Rheumatoid arthritis. Thyroid carcinoma. SKIN: History of MRSA. Negative for rash or itching. PSYCHIATRIC: Bipolar depression. All systems: negative (See HPI) Past Medical History Past Medical History: Cancer, Diabetes Mellitus, Hypertension, Renal Disease, Rheumatoid Arthritis (RA), Thyroid Disorder Additional Past Medical History / Comment(s): Liver cirrhosis, heat murmor, thyroid CA History of Any Multi-Drug Resistant Organisms: MRSA Year Discovered:: 2007 MDRO Source:: ankle Past Surgical History: Section, Cholecystectomy, Ear Surgery, Heart Catheterization, Hysterectomy, Joint Replacement, Orthopedic Surgery, Tonsillectomy Additional Past Surgical History / Comment(s): thyroid, bilateral knees Past Anesthesia/Blood Transfusion Reactions: No Reported Reaction Past Psychological History: Bipolar, Depression Smoking Status: Never smoker Past Alcohol Use History: None Reported Past Drug Use History: None Reported Medications and Allergies Home Medications Medication Instructions Recorded Confirmed Type Albuterol Sulfate [Proventil Hfa] 2 puff INHALATION RT-Q6H PRN 04/05/17 History Ascorbic Acid [Vitamin C] 250 mg PO DAILY 04/05/17 04/05/17 History Atorvastatin [Lipitor] 20 mg PO HS 04/05/17 04/05/17 History Cyclobenzaprine [Flexeril] 10 mg PO TID PRN 04/05/17 04/05/17 History Divalproex Sodium [Depakote] 500 mg PO TID 04/05/17 04/05/17 History Escitalopram Oxalate [Lexapro] 20 mg PO DAILY 04/05/17 04/05/17 History Ferrous Sulfate [Feosol] 325 mg PO BID-W/MEALS 04/05/17 04/05/17 History Furosemide [Lasix] 40 mg PO DAILY 04/05/17 04/05/17 History Gabapentin [Neurontin] 300 mg PO TID 04/05/17 04/05/17 History HYDROcodone/APAP 7.5-325MG [[place] 1 tab PO Q8H PRN 04/05/17 04/05/17 History 7.5-325] LORazepam [Ativan] 1 mg PO BID PRN 04/05/17 04/05/17 History Lactulose 20 gm PO BID 04/05/17 04/05/17 History Levothyroxine Sodium [Synthroid] 300 mcg PO QAM 04/05/17 04/05/17 History Linagliptin [Tradjenta] 5 mg PO DAILY 04/05/17 04/05/17 History Liothyronine Sodium [Cytomel] 5 mcg PO DAILY 04/05/17 04/05/17 History Lisinopril [Zestril] 20 mg PO DAILY 04/05/17 04/05/17 History Lurasidone HCl [Latuda] 20 mg PO W/SUPPER 04/05/17 04/05/17 History Pioglitazone [Actos] 15 mg PO DAILY 04/05/17 04/05/17 History Potassium Chloride ER [K-Dur 10] 10 meq PO DAILY 04/05/17 04/05/17 History Ranitidine HCl [Zantac] 150 mg PO HS 04/05/17 04/05/17 History Rifaximin [Xifaxan] 550 mg PO BID 04/05/17 04/05/17 History Sennosides-Docusate Sodium 2 tab PO BID PRN 04/05/17 04/05/17 History [Senokot-S] Ursodiol [Actigall] 300 mg PO BID 04/05/17 04/05/17 History Venlafaxine HCl ER [Effexor Xr] 37.5 mg PO DAILY 04/05/17 04/05/17 History Zolpidem [Ambien] 10 mg PO HS PRN 04/05/17 04/05/17 History glipiZIDE [Glucotrol] 5 mg PO AC-BID 04/05/17 04/05/17 History metFORMIN HCL [Metformin HCl] 1,000 mg PO BID-W/MEALS 04/05/17 04/05/17 History traZODone HCL 100 mg PO HS 04/05/17 04/05/17 History Allergies Allergy/AdvReac Type Severity Reaction Status Date / Time morphine Allergy Itching Verified 04/05/17 17:55 Physical Exam Vitals: Vital Signs Temp Pulse Pulse Resp BP Pulse Ox 04/08/17 08:00 19 04/08/17 07:00 98.3 F 95 19 113/80 97 04/07/17 23:00 97.4 F L 86 20 98/61 95 04/07/17 20:18 82 20 106/58 04/07/17 16:00 63 18 04/07/17 15:00 98.4 F 63 18 107/61 94 L Intake and Output 04/07/17 04/08/17 04/08/17 22:59 06:59 14:59 Intake Total 400 100 Balance 400 100 Intake: Oral 400 100 Other: Voiding Method Toilet Toilet # Voids 3 1 # Bowel Movements 1 Weight 142.882 kg General appearance: The patient is alert, oriented, in no acute distress. HET: Head is normocephalic and atraumatic. Pupils are equal and reactive. Oropharynx is clear without lesions. Neck: Supple without lymphadenopathy. Trachea midline. Heart: S1 S2. Regular rate and rhythm. Lungs: No crackles or wheezes are heard. Abdomen: Soft, mild left upper quadrant tenderness, nondistended with bowel sounds. No peritoneal signs. No palpable organomegaly or masses. Extremities: Normal skin color and turgor. No cyanosis, rash, ulceration, clubbing, or edema. Radial and pedal pulses are 2/4 bilaterally. Neurological: No focal deficits. Strength and sensation are grossly intact. Results CBC & Chem 7: 04/08/17 09:18 04/08/17 09:18 Labs: Abnormal Lab Results - Last 24 Hours (Table) 04/07/17 04/07/17 04/07/17 Range/Units 12:23 16:41 17:35 Potassium 5.8 H (3.5-5.1) mmol/L POC Glucose (mg/dL) 140 H 135 H (75-99) mg/dL 04/07/17 04/08/17 Range/Units 21:19 07:21 Potassium (3.5-5.1) mmol/L POC Glucose (mg/dL) 140 H 142 H (75-99) mg/dL Microbiology - Last 24 Hours (Table) 04/06/17 17:06 Blood Culture - Preliminary Blood No Growth after 24 hours Assessment and Plan (1) LUQ abdominal pain Narrative/Plan: Unclear etiology Status: Acute (2) Pyelonephritis Status: Acute (3) Hepatosplenomegaly Status: Chronic (4) Cirrhosis Narrative/Plan: Reported as autoimmune evaluated at [facility] in the past Status: Chronic (5) Acute UTI Status: Acute Plan: 1. Computed tomography scan abdomen and pelvis for evaluation of left upper quadrant abdominal pain. 2. Follow up at [facility] as advised in May 2017. 3. Continue supportive measures. Thank you for this kind referral and the opportunity to participate in the care of your patient. This consultation was discussed with Dr. Michael. The impression and plan of care have been directed as dictated.
[2017-04-08] MEDS: IOHEXOL 350 MG/ML 25 ML BOTTLE (ORAL USE) PO PRN ×2 (10:57→11:54)
[2017-04-08 12:11] LABS: Glucose,Whole Blood 207 mg/dL (75-99)
--- NOTE | 2017-04-08 13:12 | CT ---
EXAMINATION TYPE: CT abdomen pelvis w con DATE OF EXAM: 04/08/2017 COMPARISON: Ultrasound abdomen 04/05/2017 HISTORY: Upper abdominal pain with nausea CT DLP: 3529.1 mGycm Automated exposure control for dose reduction was used. TECHNIQUE: Helical acquisition of images from the lung bases through the pelvis have been completed. CONTRAST: Performed with Oral Contrast and with IV Contrast, patient injected with 100 mL of Omnipaque 300. FINDINGS: Calcified left hilar nodes present, there is a calcified left lower lobe lung nodule LUNG BASES: No pleural or pericardial effusion. No evident hiatal hernia. AORTA: No significant abnormality is appreciated. LIVER/GB: The liver is enlarged and shows low attenuation. There is a nodular contour. Gallbladder is not seen. PANCREAS: No significant abnormality is seen. SPLEEN: Spleen is enlarged, there is an associated calcification ADRENALS: No significant abnormality is seen. KIDNEYS: No significant abnormality is seen. REPRODUCTIVE ORGANS: Uterus and adnexal structures are not seen. BOWEL: Nonspecific small bowel wall thickening is questioned. There is no bowel obstruction. Small a nterior abdominal wall hernia contains fat. Small duodenal diverticulum present at the third portion. FREE AIR: No Free Air visible. ASCITES: None visible. PELVIC ADENOPATHY: None visualized. RETROPERITONEAL ADENOPATHY: No Retroperitoneal Adenopathy visible. URINARY BLADDER: No significant abnormality is seen. OSSEOUS STRUCTURES: Degenerative disc change present in the visualized spine. IMPRESSION: HEPATOSPLENOMEGALY, CORRELATE FOR POSSIBLE CIRRHOSIS, FATTY INFILTRATION OF THE LIVER. POSTOP CHANGES . POSSIBLE ENTERITIS. ADDITIONAL FINDINGS ABOVE. OLD GRANULOMATOUS DISEASE.
[2017-04-08] MEDS: SODIUM CHLORIDE 0.9% 1,000 ML IV SCH (13:59)
--- NOTE | 2017-04-09 17:41 | DS ---
DATE OF ADMISSION: 04/05/2017 DATE OF DISCHARGE: 04/08/2017 FINAL DIAGNOSES: 1. Severe urinary tract infection with possible acute pyelonephritis with present on admission, improved. 2. Anemia, normocytic anemia of chronic disease. 3. Hyperkalemia. 4. Dehydration present on admission. 5. Hypomagnesemia mild refusing Lactulose. 6. Hyperkalemia. 7. Diabetes mellitus type 2. 8. Essential hypertension. 9. Chronic renal disease without acute renal failure. 10. Rheumatoid arthritis. 11. Hypothyroidism. 12. History of liver cirrhosis. 13. History of thyroid cancer. 14. History of Methicillin-resistant Staph aureus. 15. History of degenerative joint disease. 16. Bipolar depression, not otherwise specified. 17. Morbid obesity, body mass index 47.9. 18. Cirrhosis of the liver. 19. Chronic granulomatous disease. DISCHARGE DISPOSITION: The patient will be discharged in stable condition with guarded prognosis. Discharge cleared by gastroenterology. HISTORY OF PRESENT ILLNESS: This 51-year-old woman with a past medical history of multiple medical problems admitted with multiple symptomatology as mentioned earlier. Patient was treated symptomatically with antibiotics. The patient also complaining of abdominal pain. CAT scan of the abdomen was also done, which showed hepatosplenomegaly, possible cirrhosis of the liver. Gastroenterology saw the patient and recommended outpatient follow-up. On exam, vital signs are stable. CARDIOVASCULAR: S1, S2 muffled. ABDOMEN: Soft. CENTRAL NERVOUS SYSTEM: No focal deficits. The patient will be discharged in a stable condition with guarded prognosis with the following advice and medication: Discharge advice and medications: 1. Diet is soft. Cardiac. 2. Activity limited until follow-up. 3. Follow up with primary physician, Dr. Partida as mentioned earlier. 4. Follow-up with Dr. Hook and Dr. Michael as recommended. 5. Medications are as follows: 6. Albuterol 2 puffs q.i.d. p.r.n. 7. Vitamin C 250 mg p.o. daily. 8. Lipitor 20 mg q.h.s. 9. Flexeril 10 mg t.i.d. p.r.n. 10. Depakote 500 mg p.o. t.i.d. 11. Lexapro 20 mg p.o. daily. 12. Iron sulfate 320 mg p.o. b.i.d. 13. Lasix 40 mg p.o. daily. 14. Neurontin 300 mg p.o. t.i.d. 15. Glucotrol 5 mg a.c. b.i.d. 16. [place] 7.5 q.8 p.r.n. 17. Lactulose 20 grams p.o. b.i.d. 18. Synthroid 300 mcg p.o. in the morning. 19. Tradjenta 5 mg p.o. daily. 20. Cytomel 5 mcg p.o. daily. 21. Zestril 20 mg p.o. daily. 22. Ativan 1 mg b.i.d. p.r.n. 23. Latuda 20 mg p.o. Wednesday. 24. Metformin 1000 mg p.o. b.i.d. 25. Actos 15 mg p.o. daily. 26. K-Dur 10 meq p.o. daily. 27. Zantac 150 mg p.o. q.h.s. 28. xifaxin 550 mg p.o. b.i.d. 29. Senna 2 tablets b.i.d. p.r.n. 30. Trazodone 100 mg p.o. q.h.s. 31. Actigall 300 mg p.o. b.i.d. 32. Effexor-XR 37.5 mg p.o. daily. 33. Ambien 10 mg at bedtime p.r.n. Once again, the patient will be discharged in a stable condition with guarded prognosis. MTDD
== END 2017-04-08 16:01 | disposition home or self-care (01) | DRG 690 ==
LOC: EC 16:24 → 4MS4W 19:14
PROVIDERS: ADMIT Internal Medicine; ATTEND Internal Medicine
DX: N10 Acute pyelonephritis (principal); E11.22 Type 2 diabetes mellitus with diabetic chronic kidney disease; D71 Functional disorders of polymorphonuclear neutrophils; E83.42 Hypomagnesemia; K74.60 Unspecified cirrhosis of liver; E87.5 Hyperkalemia; E66.01 Morbid (severe) obesity due to excess calories; D63.8 Anemia in other chronic diseases classified elsewhere; E03.9 Hypothyroidism, unspecified; E86.0 Dehydration; F31.9 Bipolar disorder, unspecified; I12.9 Hypertensive chronic kidney disease with stage 1 through stage 4 chronic kidney disease, or unspecified chronic kidney disease; M06.9 Rheumatoid arthritis, unspecified; N18.9 Chronic kidney disease, unspecified; M19.90 Unspecified osteoarthritis, unspecified site; R01.1 Cardiac murmur, unspecified; R16.2 Hepatomegaly with splenomegaly, not elsewhere classified; Z68.42 Body mass index [BMI] 45.0-49.9, adult; Z79.84 Long term (current) use of oral hypoglycemic drugs; Z79.899 Other long term (current) drug therapy; Z85.850 Personal history of malignant neoplasm of thyroid; Z86.14 Personal history of Methicillin resistant Staphylococcus aureus infection; Z87.440 Personal history of urinary (tract) infections; Z88.5 Allergy status to narcotic agent; Z96.60 Presence of unspecified orthopedic joint implant
CPT/HCPCS: 36415; 74177; 76700; 80048; 80053; 81001; 82140; 83036; 83735; 84100; 84132; 84439; 84443; 85025; 85610; 87040; 87086; 93005; 96365; 96367; 96375; 96376; 99285

== ENCOUNTER → 2017-05-03 | Outpatient (CLI) | payer MEDICARE, OTHER | END | disposition home or self-care (01) | LOC: RADMRIMAIN 16:56 | PROVIDERS: ATTEND Psychiatry & Neurology Pain Medicine | DX: Z53.9 Procedure and treatment not carried out, unspecified reason (principal) ==

== ENCOUNTER → 2017-06-03 | Outpatient (CLI) | payer MEDICARE, OTHER ==
[2017-06-03 14:32] LABS: Appearance,Urine Cloudy (Clear); Bacteria,Urine Rare /hpf; Bilirubin,Urine Negative (Negative); Glucose,Urine (UA) Negative (Negative); Ketones,Urine Trace (Negative); Leukocyte Esterase,Urine Large (Negative); Mucus,Urine Rare /hpf; Nitrite,Urine Negative (Negative); PH, Urine 5.5 (5.0-8.0); Particle Count 4825; Protein,Urine 1+ (Negative); RBC,Urine 2 /hpf (0-5); Specific Gravity,Urine 1.026 (1.001-1.035); Squamous Epithelial Cell,Urine 1 /hpf (0-4); UA Billing (MACRO vs. MICRO) MICRO; WBC,Urine 69 /hpf (0-5)
[2017-06-03 14:40] LABS: Anion Gap 12 mmol/L; Blood Urea Nitrogen 26 mg/dL (7-17); Calcium 8.9 mg/dL (8.4-10.2); Carbon Dioxide 20 mmol/L (22-30); Chloride 108 mmol/L (98-107); Glucose 155 mg/dL (74-99); Non-African American GFR(MDRD) 51 (>60 ml/min/1.73 sqM); Potassium 5.5 mmol/L (3.5-5.1); Sodium 140 mmol/L (137-145)
[2017-06-03 14:41] LABS: Basophils % (A) 0 %; CH 28.6; CHCM 31.6; Eosinophils # (A) 0.1 k/uL (0-0.7); Eosinophils % (A) 1 %; HCT 30.8 % (34.0-46.0); HDW 3.16; Hypochromasia Slight; Luc # (Auto) 0.05; Luc % (Auto) 1; Lymphocytes % (A) 27 %; MCH 29.6 pg (25.0-35.0); MCHC 32.6 g/dL (31.0-37.0); MCV 91.1 fL (80.0-100.0); Mean Platelet Volume 7.4; Monocytes # (A) 0.1 k/uL (0-1.0); Monocytes % (A) 4 %; Neutrophils # (A) 2.5 k/uL (1.3-7.7); Neutrophils % (A) 66 %; RBC 3.38 m/uL (3.80-5.40); RDW 15.7 % (11.5-15.5); WBC 3.7 k/uL (3.8-10.6); WBC (Perox) 3.62
== END | disposition home or self-care (01) ==
LOC: LABWHC1 13:56
PROVIDERS: ATTEND Family Medicine
DX: E87.5 Hyperkalemia (principal); R10.9 Unspecified abdominal pain; D64.9 Anemia, unspecified
CPT/HCPCS: 36415; 80048; 81001; 85025

== ENCOUNTER → 2017-06-03 | Outpatient (CLI) | payer MEDICARE, OTHER ==
--- NOTE | 2017-06-03 14:52 | CT ---
EXAMINATION TYPE: CT lumbar spine wo con DATE OF EXAM: 06/03/2017 COMPARISON: NONE HISTORY: Patient complains of chronic low back pain with radiation to the left hip. CT DLP: 1349 mGycm CONTRAST: CT scan of the lumbar is performed without contrast TECHNIQUE: CT of the lumbar spine is performed on a spiral scan at 3 mm thick sections. Reconstructed images are performed in the coronal and sagittal planes. FINDINGS: T12-L1: No focal disc herniation or significant disc bulge is evident. No spinal canal stenosis or neural foraminal stenosis is present. L1-L2: No focal disc herniation or significant disc bulge is evident. No spinal canal stenosis or n eural foraminal stenosis is present L2-L3: No focal disc herniation or significant disc bulge is evident. No spinal canal stenosis or n eural foraminal stenosis is present L3-L4: Minimal disc bulge has anterior thecal sac contact. No spinal canal stenosis or neural foramin al stenosis is present. L4-L5: Small central protrusion from the superior central disc may be present. This is anterior theca l sac contact. No AP spinal canal stenosis or neural foraminal stenosis is present. L5-S1: No focal disc herniation or significant disc bulge is evident. No spinal canal stenosis or n eural foraminal stenosis is present Vertebral alignment appears normal. Disc heights are preserved. Minimal facet changes are present wit hout posterior lateral thecal sac compression. IMPRESSION: 1. Possible minimal central disc bulge L4-5. Minimal disc bulge may be present L3-4 with anterior the jeny sac contact. No stenosis is present at these levels.
== END | disposition home or self-care (01) ==
LOC: RADCTMAIN 13:21
PROVIDERS: ATTEND Psychiatry & Neurology Neurology
DX: M51.26 Other intervertebral disc displacement, lumbar region (principal)
CPT/HCPCS: 72131

== ENCOUNTER 2017-11-02 10:37 | Inpatient (IN) | payer MEDICARE, OTHER ==
--- NOTE | 2017-11-02 11:05 | ED ---
General Adult HPI - General Chief complaint: Shortness of Breath Stated complaint: Diff Breathing Time Seen by Provider: 11/02/17 10:40 Source: patient, RN notes reviewed Mode of arrival: EMS Limitations: no limitations - History of Present Illness Initial comments: This is a 51-year-old female who presents to the emergency department complaining of difficulty breathing. Patient states his last couple days she's had a hard time breathing she's been coughing more and she has had a fever as of yesterday. Patient does not have a fever yesterday. Patient denies any chest pain or palpitations. Patient states exertion makes it worse. Patient has not noticed any calf pain or edema to the legs. Patient states she did have a long trip to [place] a week ago and then when she got back she had a vagal stimulator placed. Patient denies any headache patient denies numbness weakness. Patient denies lightheadedness or dizziness. - Related Data Home Medications Medication Instructions Recorded Confirmed Atorvastatin [Lipitor] 20 mg PO HS 04/05/17 11/02/17 Divalproex Sodium [Depakote] 500 mg PO TID 04/05/17 11/02/17 LORazepam [Ativan] 1 mg PO BID PRN 04/05/17 11/02/17 Liothyronine Sodium [Cytomel] 5 mcg PO DAILY 04/05/17 11/02/17 Lurasidone HCl [Latuda] 20 mg PO W/SUPPER 04/05/17 11/02/17 Pioglitazone [Actos] 15 mg PO DAILY 04/05/17 11/02/17 Venlafaxine HCl ER [Effexor Xr] 37.5 mg PO DAILY 04/05/17 11/02/17 Zolpidem [Ambien] 10 mg PO HS 04/05/17 11/02/17 glipiZIDE [Glucotrol] 5 mg PO AC-BID 04/05/17 11/02/17 Dilaudid 1 dose .ROUTE DIRECTED 11/02/17 11/02/17 Ergocalciferol (Vitamin D2) 50,000 unit PO WE 11/02/17 11/02/17 [Vitamin D2] Levothyroxine Sodium [Synthroid] 300 mcg PO DAILY 11/02/17 11/02/17 Nystatin 100,000Unit/gm Cream 1 applic TOPICAL BID 11/02/17 11/02/17 [Mycostatin Cream] Ondansetron HCl [Zofran] 8 mg PO Q8H PRN 11/02/17 11/02/17 Ranitidine HCl [Zantac] 300 mg PO HS 11/02/17 11/02/17 Rifaximin [Xifaxan] 550 mg PO BID 11/02/17 11/02/17 Tolterodine ER [Detrol LA] 4 mg PO DAILY 11/02/17 11/02/17 metFORMIN HCL [Glucophage] 1,000 mg PO BID 11/02/17 11/02/17 Allergies Allergy/AdvReac Type Severity Reaction Status Date / Time morphine Allergy Itching Verified 11/02/17 11:46 pregabalin [From Lyrica] Allergy delusional Verified 11/02/17 11:46 Review of Systems ROS Statement: Those systems with pertinent positive or pertinent negative responses have been documented in the HPI. ROS Other: All systems not noted in ROS Statement are negative. Past Medical History Past Medical History: Cancer, COPD, Diabetes Mellitus, Hyperlipidemia, Hypertension, Liver Disease, Renal Disease, Skin Disorder, Sleep Apnea/CPAP/ BIPAP, Thyroid Disorder Additional Past Medical History / Comment(s): Liver cirrhosis, thyroid CA , no cpap used, ulcers, rash that comes and goes, "kidney disease", gout, states currently has bronchitis and Dr Michael is aware History of Any Multi-Drug Resistant Organisms: MRSA Date of last positivie culture/infection: 2007 MDRO Source:: ankle Past Surgical History: Section, Cholecystectomy, Ear Surgery, Heart Catheterization, Hysterectomy, Joint Replacement, Orthopedic Surgery, Tonsillectomy Additional Past Surgical History / Comment(s): thyroidectomy, hemal ankle ORIF, hemal knee replacement, rt shoulder rotator cuff, hemal cataracts Past Anesthesia/Blood Transfusion Reactions: No Reported Reaction Past Psychological History: Anxiety, Bipolar, Depression Smoking Status: Never smoker Past Alcohol Use History: None Reported Past Drug Use History: None Reported - Past Family History Sister(s) Family Medical History: Cancer, Deep Vein Thrombosis (DVT) Mother Family Medical History: Cancer General Exam - General Exam Comments Initial Comments: GENERAL: Patient is well-developed and well-nourished. Patient is nontoxic and well- hydrated and is in moderate distress. ENT: Neck is soft and supple. No significant lymphadenopathy is noted. Oropharynx is clear. Moist mucous membranes. Neck has full range of motion without eliciting any pain. EYES: The sclera were anicteric and conjunctiva were pink and moist. Extraocular movements were intact and pupils were equal round and reactive to light. Eyelids were unremarkable. PULMONARY: Crackles bilateral bases with extra wheezing diffusely CARDIOVASCULAR: There is a regular rate and rhythm without any murmurs gallops or rubs. ABDOMEN: Soft and nontender with normal bowel sounds. No palpable organomegaly was noted. There is no palpable pulsatile mass. SKIN: Skin is clear with no lesions or rashes and otherwise unremarkable. NEUROLOGIC: Patient is alert and oriented x3. Cranial nerves II through XII are grossly intact. Motor and sensory are also intact. Normal speech, volume and content. Symmetrical smile. MUSCULOSKELETAL: Normal extremities with adequate strength and full range of motion. No lower extremity swelling or edema. No calf tenderness. LYMPHATICS: No significant lymphadenopathy is noted PSYCHIATRIC: Normal psychiatric evaluation. Normal interpersonal interactions appears functionally intact in deals appropriately with others. No signs of depression. No signs of anxiety. Limitations: no limitations Course Vital Signs 11/02/17 11/02/17 11/02/17 10:39 11:03 13:30 Temperature 97.4 F L Pulse Rate 125 H 102 H Respiratory 24 24 20 Rate Blood Pressure 153/88 113/55 O2 Sat by Pulse 89 L 97 Oximetry Medical Decision Making - Medical Decision Making EKG shows sinus tachycardia at 117 bpm NH interval 270 QRS is 90 QT interval 338 QTC is 471. Patient's EKG shows inverted T waves throughout the precordial leads which is new when compared to an old EKG. CT was done to rule out PE however the dye extravasated so no obvious PE was noted because of the poor contrast study. CAT scan however does show bilateral pneumonia worse in the left lower lobe. I started the patient on antibiotics. Antibiotics were delayed because the patient does not have a fever and there was no source of infection upon arrival until the CAT scan confirmed a pneumonia. - Lab Data Result diagrams: 11/02/17 11:10 11/02/17 11:10 Lab Results 11/02/17 11/02/17 11/02/17 Range/Units 11:10 11:10 11:10 WBC 12.0 H (3.8-10.6) k/uL RBC 4.08 (3.80-5.40) m/uL Hgb 10.5 L (11.4-16.0) gm/dL Hct 36.2 (34.0-46.0) % MCV 88.8 (80.0-100.0) fL MCH 25.7 (25.0-35.0) pg MCHC 28.9 L (31.0-37.0) g/dL RDW 16.4 H (11.5-15.5) % Plt Count 199 (150-450) k/uL Neutrophils % Not Reportable Neutrophils % (Manual) 63 % Band Neutrophils % 4 % Lymphocytes % Not Reportable Lymphocytes % (Manual) 20 % Monocytes % Not Reportable Monocytes % (Manual) 9 % Eosinophils % Not Reportable Eosinophils % (Manual) 1 % Basophils % Not Reportable Metamyelocytes % 3 % Myelocytes % 1 % Neutrophils # Not Reportable Neutrophils # (Manual) 8.00 H (1.3-7.7) k/uL Lymphocytes # Not Reportable Lymphocytes # (Manual) 2.40 (1.0-4.8) k/uL Monocytes # Not Reportable Monocytes # (Manual) 1.08 H (0-1.0) k/uL Eosinophils # Not Reportable Eosinophils # (Manual) 0.12 (0-0.7) k/uL Basophils # Not Reportable Metamyelocytes # (Man) 0.36 H (0) k/uL Myelocytes # (Manual) 0.12 H (0) k/uL Nucleated RBCs 2 H (0-0) /100 WBC Manual Slide Review Performed Polychromasia Present Hypochromasia Marked Poikilocytosis Slight Anisocytosis Slight PT (9.0-12.0) sec INR (<1.2) APTT (22.0-30.0) sec D-Dimer 2.44 H (<0.60) mg/L FEU Sodium (137-145) mmol/L Potassium (3.5-5.1) mmol/L Chloride (98-107) mmol/L Carbon Dioxide (22-30) mmol/L Anion Gap mmol/L BUN (7-17) mg/dL Creatinine (0.52-1.04) mg/dL Est GFR (MDRD) Af Amer (>60 ml/min/1.73 sqM) Est GFR (MDRD) Non-Af (>60 ml/min/1.73 sqM) Glucose (74-99) mg/dL Lactic Ac Sepsis Rflx Plasma Lactic Acid Juan (0.7-2.0) mmol/L Calcium (8.4-10.2) mg/dL Total Bilirubin (0.2-1.3) mg/dL AST (14-36) U/L ALT (9-52) U/L Alkaline Phosphatase (38-126) U/L Total Creatine Kinase 26 L (30-135) U/L CK-MB (CK-2) 0.9 (0.0-2.4) ng/mL CK-MB (CK-2) Rel Index 3.5 Troponin I 0.038 H* (0.000-0.034) ng/mL NT-Pro-B Natriuret Pep pg/mL Total Protein (6.3-8.2) g/dL Albumin (3.5-5.0) g/dL Urine Color Urine Appearance (Clear) Urine pH (5.0-8.0) Ur Specific [place] (1.001-1.035) Urine Protein (Negative) Urine Glucose (UA) (Negative) Urine Ketones (Negative) Urine Blood (Negative) Urine Nitrite (Negative) Urine Bilirubin (Negative) Urine Urobilinogen (<2.0) mg/dL Ur Leukocyte Esterase (Negative) Urine RBC (0-5) /hpf Urine WBC (0-5) /hpf Ur Squamous Epith Cells (0-4) /hpf Urine Bacteria (None) /hpf Urine Mucus (None) /hpf Influenza Type A RNA (Not Detectd) Influenza Type B (PCR) (Not Detectd) 11/02/17 11/02/17 11/02/17 Range/Units 11:10 11:10 11:10 WBC (3.8-10.6) k/uL RBC (3.80-5.40) m/uL Hgb (11.4-16.0) gm/dL Hct (34.0-46.0) % MCV (80.0-100.0) fL MCH (25.0-35.0) pg MCHC (31.0-37.0) g/dL RDW (11.5-15.5) % Plt Count (150-450) k/uL Neutrophils % Neutrophils % (Manual) % Band Neutrophils % % Lymphocytes % Lymphocytes % (Manual) % Monocytes % Monocytes % (Manual) % Eosinophils % Eosinophils % (Manual) % Basophils % Metamyelocytes % % Myelocytes % % Neutrophils # Neutrophils # (Manual) (1.3-7.7) k/uL Lymphocytes # Lymphocytes # (Manual) (1.0-4.8) k/uL Monocytes # Monocytes # (Manual) (0-1.0) k/uL Eosinophils # Eosinophils # (Manual) (0-0.7) k/uL Basophils # Metamyelocytes # (Man) (0) k/uL Myelocytes # (Manual) (0) k/uL Nucleated RBCs (0-0) /100 WBC Manual Slide Review Polychromasia Hypochromasia Poikilocytosis Anisocytosis PT 10.8 (9.0-12.0) sec INR 1.1 (<1.2) APTT 18.1 L (22.0-30.0) sec D-Dimer 1.18 H (<0.60) mg/L FEU Sodium 142 (137-145) mmol/L Potassium 5.1 (3.5-5.1) mmol/L Chloride 105 (98-107) mmol/L Carbon Dioxide 24 (22-30) mmol/L Anion Gap 13 mmol/L BUN 32 H (7-17) mg/dL Creatinine 1.30 H (0.52-1.04) mg/dL Est GFR (MDRD) Af Amer 52 (>60 ml/min/1.73 sqM) Est GFR (MDRD) Non-Af 43 (>60 ml/min/1.73 sqM) Glucose 157 H (74-99) mg/dL Lactic Ac Sepsis Rflx Plasma Lactic Acid Juan 3.7 H* (0.7-2.0) mmol/L Calcium 9.2 (8.4-10.2) mg/dL Total Bilirubin 0.6 (0.2-1.3) mg/dL AST 20 (14-36) U/L ALT 27 (9-52) U/L Alkaline Phosphatase 82 (38-126) U/L Total Creatine Kinase (30-135) U/L CK-MB (CK-2) (0.0-2.4) ng/mL CK-MB (CK-2) Rel Index Troponin I (0.000-0.034) ng/mL NT-Pro-B Natriuret Pep pg/mL Total Protein 6.7 (6.3-8.2) g/dL Albumin 3.8 (3.5-5.0) g/dL Urine Color Urine Appearance (Clear) Urine pH (5.0-8.0) Ur Specific [place] (1.001-1.035) Urine Protein (Negative) Urine Glucose (UA) (Negative) Urine Ketones (Negative) Urine Blood (Negative) Urine Nitrite (Negative) Urine Bilirubin (Negative) Urine Urobilinogen (<2.0) mg/dL Ur Leukocyte Esterase (Negative) Urine RBC (0-5) /hpf Urine WBC (0-5) /hpf Ur Squamous Epith Cells (0-4) /hpf Urine Bacteria (None) /hpf Urine Mucus (None) /hpf Influenza Type A RNA (Not Detectd) Influenza Type B (PCR) (Not Detectd) 11/02/17 11/02/17 11/02/17 Range/Units 11:10 11:10 11:30 WBC (3.8-10.6) k/uL RBC (3.80-5.40) m/uL Hgb (11.4-16.0) gm/dL Hct (34.0-46.0) % MCV (80.0-100.0) fL MCH (25.0-35.0) pg MCHC (31.0-37.0) g/dL RDW (11.5-15.5) % Plt Count (150-450) k/uL Neutrophils % Neutrophils % (Manual) % Band Neutrophils % % Lymphocytes % Lymphocytes % (Manual) % Monocytes % Monocytes % (Manual) % Eosinophils % Eosinophils % (Manual) % Basophils % Metamyelocytes % % Myelocytes % % Neutrophils # Neutrophils # (Manual) (1.3-7.7) k/uL Lymphocytes # Lymphocytes # (Manual) (1.0-4.8) k/uL Monocytes # Monocytes # (Manual) (0-1.0) k/uL Eosinophils # Eosinophils # (Manual) (0-0.7) k/uL Basophils # Metamyelocytes # (Man) (0) k/uL Myelocytes # (Manual) (0) k/uL Nucleated RBCs (0-0) /100 WBC Manual Slide Review Polychromasia Hypochromasia Poikilocytosis Anisocytosis PT (9.0-12.0) sec INR (<1.2) APTT (22.0-30.0) sec D-Dimer (<0.60) mg/L FEU Sodium (137-145) mmol/L Potassium (3.5-5.1) mmol/L Chloride (98-107) mmol/L Carbon Dioxide (22-30) mmol/L Anion Gap mmol/L BUN (7-17) mg/dL Creatinine (0.52-1.04) mg/dL Est GFR (MDRD) Af Amer (>60 ml/min/1.73 sqM) Est GFR (MDRD) Non-Af (>60 ml/min/1.73 sqM) Glucose (74-99) mg/dL Lactic Ac Sepsis Rflx Plasma Lactic Acid Juan (0.7-2.0) mmol/L Calcium (8.4-10.2) mg/dL Total Bilirubin (0.2-1.3) mg/dL AST (14-36) U/L ALT (9-52) U/L Alkaline Phosphatase (38-126) U/L Total Creatine Kinase (30-135) U/L CK-MB (CK-2) (0.0-2.4) ng/mL CK-MB (CK-2) Rel Index Troponin I (0.000-0.034) ng/mL NT-Pro-B Natriuret Pep 86800 pg/mL Total Protein (6.3-8.2) g/dL Albumin (3.5-5.0) g/dL Urine Color Yellow Urine Appearance Cloudy H (Clear) Urine pH 5.5 (5.0-8.0) Ur Specific [place] 1.019 (1.001-1.035) Urine Protein Trace H (Negative) Urine Glucose (UA) Negative (Negative) Urine Ketones Trace H (Negative) Urine Blood Small H (Negative) Urine Nitrite Negative (Negative) Urine Bilirubin Negative (Negative) Urine Urobilinogen <2.0 (<2.0) mg/dL Ur Leukocyte Esterase Large H (Negative) Urine RBC 7 H (0-5) /hpf Urine WBC 124 H (0-5) /hpf Ur Squamous Epith Cells 1 (0-4) /hpf Urine Bacteria Rare H (None) /hpf Urine Mucus Rare H (None) /hpf Influenza Type A RNA Not Detected (Not Detectd) Influenza Type B (PCR) Not Detected (Not Detectd) 11/02/17 Range/Units 11:36 WBC (3.8-10.6) k/uL RBC (3.80-5.40) m/uL Hgb (11.4-16.0) gm/dL Hct (34.0-46.0) % MCV (80.0-100.0) fL MCH (25.0-35.0) pg MCHC (31.0-37.0) g/dL RDW (11.5-15.5) % Plt Count (150-450) k/uL Neutrophils % Neutrophils % (Manual) % Band Neutrophils % % Lymphocytes % Lymphocytes % (Manual) % Monocytes % Monocytes % (Manual) % Eosinophils % Eosinophils % (Manual) % Basophils % Metamyelocytes % % Myelocytes % % Neutrophils # Neutrophils # (Manual) (1.3-7.7) k/uL Lymphocytes # Lymphocytes # (Manual) (1.0-4.8) k/uL Monocytes # Monocytes # (Manual) (0-1.0) k/uL Eosinophils # Eosinophils # (Manual) (0-0.7) k/uL Basophils # Metamyelocytes # (Man) (0) k/uL Myelocytes # (Manual) (0) k/uL Nucleated RBCs (0-0) /100 WBC Manual Slide Review Polychromasia Hypochromasia Poikilocytosis Anisocytosis PT (9.0-12.0) sec INR (<1.2) APTT (22.0-30.0) sec D-Dimer (<0.60) mg/L FEU Sodium (137-145) mmol/L Potassium (3.5-5.1) mmol/L Chloride (98-107) mmol/L Carbon Dioxide (22-30) mmol/L Anion Gap mmol/L BUN (7-17) mg/dL Creatinine (0.52-1.04) mg/dL Est GFR (MDRD) Af Amer (>60 ml/min/1.73 sqM) Est GFR (MDRD) Non-Af (>60 ml/min/1.73 sqM) Glucose (74-99) mg/dL Lactic Ac Sepsis Rflx Y Plasma Lactic Acid Juan (0.7-2.0) mmol/L Calcium (8.4-10.2) mg/dL Total Bilirubin (0.2-1.3) mg/dL AST (14-36) U/L ALT (9-52) U/L Alkaline Phosphatase (38-126) U/L Total Creatine Kinase (30-135) U/L CK-MB (CK-2) (0.0-2.4) ng/mL CK-MB (CK-2) Rel Index Troponin I (0.000-0.034) ng/mL NT-Pro-B Natriuret Pep pg/mL Total Protein (6.3-8.2) g/dL Albumin (3.5-5.0) g/dL Urine Color Urine Appearance (Clear) Urine pH (5.0-8.0) Ur Specific [place] (1.001-1.035) Urine Protein (Negative) Urine Glucose (UA) (Negative) Urine Ketones (Negative) Urine Blood (Negative) Urine Nitrite (Negative) Urine Bilirubin (Negative) Urine Urobilinogen (<2.0) mg/dL Ur Leukocyte Esterase (Negative) Urine RBC (0-5) /hpf Urine WBC (0-5) /hpf Ur Squamous Epith Cells (0-4) /hpf Urine Bacteria (None) /hpf Urine Mucus (None) /hpf Influenza Type A RNA (Not Detectd) Influenza Type B (PCR) (Not Detectd) Disposition Clinical Impression: Pneumonia Disposition: ADMITTED IP TO THIS [facility] Referrals: Nonstaff,Physician [Primary Care Provider] - 1-2 days Time of Disposition: 15:41
[2017-11-02 11:27] LABS: Anisocytosis Slight; HCT 36.2 % (34.0-46.0); HGB 10.5 gm/dL (11.4-16.0); Hypochromasia Marked; MCH 25.7 pg (25.0-35.0); MCHC 28.9 g/dL (31.0-37.0); MCV 88.8 fL (80.0-100.0); Mean Platelet Volume 6.6; Platelet Count 199 k/uL (150-450); Poikilocytosis Slight; RBC 4.08 m/uL (3.80-5.40); RDW 16.4 % (11.5-15.5)
[2017-11-02 11:32] LABS: Albumin 3.8 g/dL (3.5-5.0); Calcium 9.2 mg/dL (8.4-10.2); D-Dimer 1.18 mg/L FEU (<0.60); Potassium 5.1 mmol/L (3.5-5.1); Total Bilirubin 0.6 mg/dL (0.2-1.3); Total Protein 6.7 g/dL (6.3-8.2)
[2017-11-02 11:36] LABS: INR 1.1 (<1.2); Prothrombin Time 10.8 sec (9.0-12.0)
[2017-11-02 11:52] LABS: Partial Thromboplastin Time 18.1 sec (22.0-30.0)
[2017-11-02 11:58] LABS: Creatine Kinase MB 0.9 ng/mL (0.0-2.4)
[2017-11-02 12:01] LABS: Band Neutrophils % 4 %; Eosinophils # (M) 0.12 k/uL (0-0.7); Metamyelocytes # (M) 0.36 k/uL (0); Metamyelocytes % 3 %; Monocytes # (M) 1.08 k/uL (0-1.0); Myelocytes # (M) 0.12 k/uL (0); Myelocytes % 1 %; Neutrophils % (M) 63 %; Nucleated Red Blood Cells 2 /100 WBC (0-0); Total Cells Counted 200
[2017-11-02 12:02] LABS: Polychromasia Present
[2017-11-02 12:06] LABS: Troponin I 0.038 ng/mL (0.000-0.034)
--- NOTE | 2017-11-02 12:19 | XR ---
EXAMINATION TYPE: XR chest 2V DATE OF EXAM: 11/02/2017 COMPARISON: NONE HISTORY: Shortness of breath with history of COPD TECHNIQUE: Frontal and lateral views of the chest are obtained. FINDINGS: There is a focal retrocardiac opacity superimposed upon mild interstitial edema and pulmon deborah vascular congestion. Cardiac silhouette is mildly enlarged. Patient's body habitus slightly limit s the exam. Osseous structures are grossly intact. IMPRESSION: Retrocardiac opacity may relate to pneumonia or focal pulmonary edema in the setting of mild pulmonary vascular congestion and interstitial edema, likely on the basis of decompensated conge stive heart failure.
[2017-11-02 12:27] LABS: Appearance,Urine Cloudy (Clear); Bacteria,Urine Rare /hpf; Bilirubin,Urine Negative (Negative); Blood,Urine Small (Negative); Color,Urine Yellow; Glucose,Urine (UA) Negative (Negative); Ketones,Urine Trace (Negative); Leukocyte Esterase,Urine Large (Negative); Mucus,Urine Rare /hpf; Nitrite,Urine Negative (Negative); PH, Urine 5.5 (5.0-8.0); Protein,Urine Trace (Negative); RBC,Urine 7 /hpf (0-5); Specific Gravity,Urine 1.019 (1.001-1.035); Squamous Epithelial Cell,Urine 1 /hpf (0-4); Urobilinogen,Urine <2.0 mg/dL (<2.0); WBC,Urine 124 /hpf (0-5)
[2017-11-02] MEDS ORDERED: LEVOFLOXACIN 750MG-D5W PMX 750 MG in DEXTROSE/WATER 1 150ML.BAG IVPB STA (14:20)
[2017-11-02] MEDS ORDERED: RX INFO: IV CONTRAST WAS GIVEN 1 EACH MISC MISCELLANE PRN (14:21)
[2017-11-02] MEDS ORDERED: SODIUM CHLORIDE 0.9% 500 ML IV ONE (14:31)
--- NOTE | 2017-11-02 15:22 | CT ---
EXAMINATION TYPE: CT chest angio for PE DATE OF EXAM: 11/02/2017 COMPARISON: NONE HISTORY: Difficulty breathing, elevated d-dimer CT DLP: 1054.9 mGycm CONTRAST: CT chest with contrast and 3D reconstruction with MIP imaging is performed without and with IV Contra st, patient injected with 80 mL of Visipaque 320. The examination is nondiagnostic given extravasation of contrast and suboptimal contrast bolus. Contrast-enhanced CT of the chest was performed through the course of the pulmonary arteries with primitivo g and mediastinal window settings submitted. 3D reconstruction with MIP imaging was also performed. PULMONARY ARTERIES: Suboptimal contrast opacification of the pulmonary arteries given extravasation o f contrast. The main arteries are prominent. LUNGS: Patchy perihilar and basilar infiltrates left greater than right with small pleural effusions. Air Bronchograms noted left lower lobe. There is mild cardiomegaly. Findings are nonspecific and may reflect bilateral pneumonia although a degree of superimposed congestive failure is difficult to exc lude. Correlate clinically. MEDIASTINUM: Thoracic aorta is of normal caliber . The heart is mildly enlarged. No evidence for me diastinal mass. No mediastinal lymph nodes greater than 1cm. Calcified hilar mediastinal lymph nodes seen. HILAR STRUCTURES: No evidence for mass. No hilar lymph nodes greater than 1 cm. Calcified left hilar lymph nodes identified. UPPER ABDOMEN: No significant abnormality is seen. IMPRESSION: 1. Nondiagnostic for evaluation of pulmonary embolism given extravasation of contrast. 2. Pulmonary findings are nonspecific and may reflect bilateral pneumonia although a degree of superi mposed congestive failure is difficult to exclude. Correlate clinically.
[2017-11-02] MEDS ORDERED: PNEUMONIA PROTOCOL UTILIZED 1 EACH MISC PO PRN (15:43)
[2017-11-02 16:45] LABS: Glucose,Whole Blood 230 mg/dL (75-99)
[2017-11-02] MEDS ORDERED: HEPARIN SODIUM,PORCINE 5,000 UNIT/ML 1 ML VIAL IV STA (17:01)
[2017-11-02] MEDS ORDERED: VANCOMYCIN IV PER PHARMACY 1 EACH MISC MISCELLANE PRN (17:04)
[2017-11-02] MEDS ORDERED: NALOXONE 0.4 MG/ML 1 ML VIAL IV PRN (17:05)
[2017-11-02] MEDS ORDERED: PIPERACILLIN-TAZOBACTAM 3.375 GM in DEXTROSE/WATER 1 50ML.BAG IVPB STA (17:07)
[2017-11-02] MEDS: ALBUTEROL NEBULIZED 2.5 MG/3 ML INHALATION SCH ×2 (17:18→19:10)
--- NOTE | 2017-11-02 17:33 | P.HPIM ---
History of Present Illness H&P Date: 11/02/17 Chief Complaint: SOB 51-year-old female who presents to the emergency department complaining of difficulty breathing. Patient states his last couple days she's had a hard time breathing, she's been coughing more and has been having fever and chills. She is also having chest pain located on the left side of the chest, no radiation associated with general weakness, fatigue and diaphoresis. Patient states exertion makes her symptoms worse and that last night was especially bad for her. She has also noticed that her legs are becoming swollen. Patient states she did have a long trip to [place] a week ago and then when she got back she had a dilaudid pump placed in her back. Patient denies any headache, focal numbness or weakness. Review of Systems 12 point review of system was performed, negative except for HPI Past Medical History Past Medical History: Cancer, COPD, Diabetes Mellitus, Hyperlipidemia, Hypertension, Liver Disease, Renal Disease, Skin Disorder, Sleep Apnea/CPAP/ BIPAP, Thyroid Disorder Additional Past Medical History / Comment(s): Liver cirrhosis, thyroid CA , no cpap used, ulcers, history of stent in the heart, "kidney disease", gout, states currently has bronchitis and Dr Michael is aware History of Any Multi-Drug Resistant Organisms: MRSA Date of last positivie culture/infection: 2007 MDRO Source:: ankle Past Surgical History: Section, Cholecystectomy, Ear Surgery, Heart Catheterization, Hysterectomy, Joint Replacement, Orthopedic Surgery, Tonsillectomy Additional Past Surgical History / Comment(s): thyroidectomy, hemal ankle ORIF, hemal knee replacement, rt shoulder rotator cuff, hemal cataracts Past Anesthesia/Blood Transfusion Reactions: No Reported Reaction Past Psychological History: Anxiety, Bipolar, Depression Smoking Status: Never smoker Past Alcohol Use History: None Reported Past Drug Use History: None Reported - Past Family History Sister(s) Family Medical History: Cancer, Deep Vein Thrombosis (DVT) Mother Family Medical History: Cancer Medications and Allergies Home Medications Medication Instructions Recorded Confirmed Type Atorvastatin [Lipitor] 20 mg PO HS 04/05/17 11/02/17 History Divalproex Sodium [Depakote] 500 mg PO TID 04/05/17 11/02/17 History LORazepam [Ativan] 1 mg PO BID PRN 04/05/17 11/02/17 History Liothyronine Sodium [Cytomel] 5 mcg PO DAILY 04/05/17 11/02/17 History Lurasidone HCl [Latuda] 20 mg PO W/SUPPER 04/05/17 11/02/17 History Pioglitazone [Actos] 15 mg PO DAILY 04/05/17 11/02/17 History Venlafaxine HCl ER [Effexor Xr] 37.5 mg PO DAILY 04/05/17 11/02/17 History Zolpidem [Ambien] 10 mg PO HS 04/05/17 11/02/17 History glipiZIDE [Glucotrol] 5 mg PO AC-BID 04/05/17 11/02/17 History Dilaudid 1 dose .ROUTE DIRECTED 11/02/17 11/02/17 History Ergocalciferol (Vitamin D2) 50,000 unit PO WE 11/02/17 11/02/17 History [Vitamin D2] Levothyroxine Sodium [Synthroid] 300 mcg PO DAILY 11/02/17 11/02/17 History Nystatin 100,000Unit/gm Cream 1 applic TOPICAL BID 11/02/17 11/02/17 History [Mycostatin Cream] Ondansetron HCl [Zofran] 8 mg PO Q8H PRN 11/02/17 11/02/17 History Ranitidine HCl [Zantac] 300 mg PO HS 11/02/17 11/02/17 History Rifaximin [Xifaxan] 550 mg PO BID 11/02/17 11/02/17 History Tolterodine ER [Detrol LA] 4 mg PO DAILY 11/02/17 11/02/17 History metFORMIN HCL [Glucophage] 1,000 mg PO BID 11/02/17 11/02/17 History Allergies Allergy/AdvReac Type Severity Reaction Status Date / Time morphine Allergy Itching Verified 11/02/17 11:46 pregabalin [From Lyrica] Allergy delusional Verified 11/02/17 11:46 Physical Exam Vitals: Vital Signs Temp Pulse Resp BP Pulse Ox 11/02/17 16:12 98.4 F 88 18 136/60 99 11/02/17 15:30 104 H 18 138/73 99 11/02/17 14:00 94 18 118/56 96 11/02/17 13:30 102 H 20 113/55 97 11/02/17 11:03 24 11/02/17 10:39 97.4 F L 125 H 24 153/88 89 L Intake and Output 11/02/17 11/02/17 11/02/17 06:59 14:59 22:59 Other: Weight 149.685 kg Patient Weight 11/03/17 06:59 Weight 149.685 kg Constitutional: Morbidly obese, in mild respiratory distress, conversant, pleasant Eyes:Anicteric sclerae, moist conjunctiva, no lid-lag, PERRLA, ENMT: Oropharynx clear, no erythema, exudates Neck: Supple, FROM, no masses, or JVD, No carotid bruits, No thyromegaly Lungs: bilateral expiratory crackles and rhonchi especially at the bases, Clear to percussion, Normal respiratory effort, no accessory muscle use Cardiovascular: Heart regular in rate and rhythm, No murmurs, gallops, or rubs, trace peripheral edema Abdominal: Soft, obese, Nontender, no guarding, rebound or rigidity, Normoactive bowel sounds, No hepatomegaly, No splenomegaly, No palpable mass Skin: Normal temperature, tone, texture, turgor, no induration, No subcutaneous nodules, No rash, lesions, No ulcers Extremities: No digital cyanosis, No clubbing, Pedal pulses intact and symmetrical, Radial pulses intact and symmetrical, No calf tenderness Psychiatric: Alert and oriented to person, place and time, appropriate affect, intact judgement Neuro: Muscles Strength 5/5 in all 4 extremities, Sensation to light touch grossly present throughout, Cranial nerves II-XII grossly intact, no focal sensory deficits Results CBC & Chem 7: 11/02/17 11:10 11/02/17 11:10 Labs: Abnormal Lab Results - Last 24 Hours (Table) 11/02/17 11/02/17 11/02/17 Range/Units 11:10 11:10 11:10 WBC 12.0 H (3.8-10.6) k/uL Hgb 10.5 L (11.4-16.0) gm/dL MCHC 28.9 L (31.0-37.0) g/dL RDW 16.4 H (11.5-15.5) % Neutrophils # (Manual) 8.00 H (1.3-7.7) k/uL Monocytes # (Manual) 1.08 H (0-1.0) k/uL Metamyelocytes # (Man) 0.36 H (0) k/uL Myelocytes # (Manual) 0.12 H (0) k/uL Nucleated RBCs 2 H (0-0) /100 WBC APTT (22.0-30.0) sec D-Dimer 2.44 H (<0.60) mg/L FEU BUN (7-17) mg/dL Creatinine (0.52-1.04) mg/dL Glucose (74-99) mg/dL POC Glucose (mg/dL) (75-99) mg/dL Plasma Lactic Acid Juan (0.7-2.0) mmol/L Total Creatine Kinase 26 L (30-135) U/L Troponin I 0.038 H* (0.000-0.034) ng/mL Urine Appearance (Clear) Urine Protein (Negative) Urine Ketones (Negative) Urine Blood (Negative) Ur Leukocyte Esterase (Negative) Urine RBC (0-5) /hpf Urine WBC (0-5) /hpf Urine Bacteria (None) /hpf Urine Mucus (None) /hpf 11/02/17 11/02/17 11/02/17 Range/Units 11:10 11:10 11:10 WBC (3.8-10.6) k/uL Hgb (11.4-16.0) gm/dL MCHC (31.0-37.0) g/dL RDW (11.5-15.5) % Neutrophils # (Manual) (1.3-7.7) k/uL Monocytes # (Manual) (0-1.0) k/uL Metamyelocytes # (Man) (0) k/uL Myelocytes # (Manual) (0) k/uL Nucleated RBCs (0-0) /100 WBC APTT 18.1 L (22.0-30.0) sec D-Dimer 1.18 H (<0.60) mg/L FEU BUN 32 H (7-17) mg/dL Creatinine 1.30 H (0.52-1.04) mg/dL Glucose 157 H (74-99) mg/dL POC Glucose (mg/dL) (75-99) mg/dL Plasma Lactic Acid Juan 3.7 H* (0.7-2.0) mmol/L Total Creatine Kinase (30-135) U/L Troponin I (0.000-0.034) ng/mL Urine Appearance (Clear) Urine Protein (Negative) Urine Ketones (Negative) Urine Blood (Negative) Ur Leukocyte Esterase (Negative) Urine RBC (0-5) /hpf Urine WBC (0-5) /hpf Urine Bacteria (None) /hpf Urine Mucus (None) /hpf 11/02/17 11/02/17 11/02/17 Range/Units 11:30 16:11 16:43 WBC (3.8-10.6) k/uL Hgb (11.4-16.0) gm/dL MCHC (31.0-37.0) g/dL RDW (11.5-15.5) % Neutrophils # (Manual) (1.3-7.7) k/uL Monocytes # (Manual) (0-1.0) k/uL Metamyelocytes # (Man) (0) k/uL Myelocytes # (Manual) (0) k/uL Nucleated RBCs (0-0) /100 WBC APTT (22.0-30.0) sec D-Dimer (<0.60) mg/L FEU BUN (7-17) mg/dL Creatinine (0.52-1.04) mg/dL Glucose (74-99) mg/dL POC Glucose (mg/dL) 230 H (75-99) mg/dL Plasma Lactic Acid Juan 4.7 H* (0.7-2.0) mmol/L Total Creatine Kinase (30-135) U/L Troponin I (0.000-0.034) ng/mL Urine Appearance Cloudy H (Clear) Urine Protein Trace H (Negative) Urine Ketones Trace H (Negative) Urine Blood Small H (Negative) Ur Leukocyte Esterase Large H (Negative) Urine RBC 7 H (0-5) /hpf Urine WBC 124 H (0-5) /hpf Urine Bacteria Rare H (None) /hpf Urine Mucus Rare H (None) /hpf Assessment and Plan Plan: 1- Acute severe sepsis/Acute community-acquired pneumonia: Discussed with the finisher map and chart, will transfer immediately to the intensive care unit. Patient was transferred up to [facility] with no IV access IV fluids once IV is established Recheck lactic acid Patient meets sepsis criteria because she is tachycardic, has leukocytosis and a source of infection and that is the pneumonia. Broad-spectrum IV antibiotics including Zosyn, vancomycin and Levaquin 2- Acute non-ST elevation myocardial infarction: EKG and laboratory findings were reviewed Start IV heparin Aspirin and lopressor Continue home statin. Cardiology consult. 3- COPD, Diabetes Mellitus type 2, Hyperlipidemia, Hypertension, Liver Disease, Renal Disease, Skin Disorder, Sleep Apnea/CPAP/BIPAP, Thyroid Disorder Resume home meds. SSI with BS checks every 6 hours. Duonebs PRN 4- DVT prophylaxis: On heparin. Sepsis - Sepsis Sepsis Focused Exam #1 Sepsis Focused Exam Date: 11/02/17 Sepsis Focused Exam Time: 17:00 Sepsis Focused Exam Complete: Yes Vital Signs & RN Notes Reviewed: Yes Capillary Refill: < 2 Seconds: Fingers, Toes Peripheral Pulses: Normal: Radial (R), Radial (L), Posterior Tibialis (R), Posterior Tibialis (L), Dorsalis Pedis (R), Dorsalis Pedis (L) Skin Color: Normal for Patient
[2017-11-02] MEDS ORDERED: VANCOMYCIN 2,500 MG in SODIUM CHLORIDE 0.9% 500 ML IVPB ONE (18:00)
[2017-11-02 18:48] LABS: Glucose,Whole Blood 221 mg/dL (75-99)
--- NOTE | 2017-11-02 18:58 | P.CNPUL ---
History of Present Illness Consult date: 11/02/17 Reason for consult: dyspnea, pneumonia History of present illness: 51-year-old female patient who was hospitalized this afternoon because of generalized weakness, increased shortness of breath, cough and chest congestion and pleuritic left-sided chest pain. The patient is morbidly obese. She has multiple medical problems and comorbidities including history of COPD, obstructive sleep apnea that has not been treated for the time being in addition to coronary artery disease with previous coronary intervention and stenting. In the emergency department, the patient was found to be hypoxic and she was placed on 6 L of oxygen nasal cannula and his saturations up to 90%. She was tachycardic. Her initial lactic acid level was at 3.7 and subsequent level came up to 4.7. The patient had a CAT scan of the chest is alive zinc a CT angios protocol. The contrast to my understanding CT into the subcu venous distention the left upper extremity. The lung windows showed patchy perihilar and basilar pulmonary infiltrate left more than right lung with small pleural effusion. Abdomen grams are noted in the left lower lobe. The patient was found to have mild cardiomegaly. These changes reflect essentially pneumonia. Mediastinum showed no evidence of any masses or lymph nodes. There was calcified hilar and mediastinal lymph nodes seen. The pulmonary arteries were suboptimally opacified due to extravasation of contrast. The patient was started on Levaquin. The patient got moved to the selective unit and following that the patient got moved to the intensive care unit. No IV fluids was given due to lack of IV lines. Based on that a triple lumen catheter was inserted in the left IJ in the intensive care units. The patient was started on fluid resuscitation in addition to broad-spectrum antibiotics utilizing a combination of Zosyn, Levaquin and vancomycin. She has had a remote exposure to MRSA infection in her left ankle. No previous history of MRSA pneumonia. The patient's first set of troponin was at 0.038. She has T-wave inversions on her EKG along with sinus tachycardia and left axis deviation. There are some nonspecific ST segment changes also. Urinalysis was also abnormal with increased white cell count at 124. Influenza screen is been negative. Blood cultures still pending. Apparently the patient has not been eating or drinking over the past few days. She has had increased emesis and she threw up a few times at home. She was in [place] for visitation and she drove back recently. Following that she was seen by Dr. Caldera and she underwent a pain pump insertion for chronic back pain. The site of pain pump insertion and incision site is dry clean and intact at this point. Review of Systems Constitutional: Reports fatigue, Reports fever, Reports lethargy, Reports night sweats, Reports weakness Eyes: denies blurred vision, denies bulging eye, denies decreased vision Ears: deny: decreased hearing, ear discharge, earache Ears, nose, mouth and throat: Denies headache, Denies sore throat Cardiovascular: Reports chest pain, Reports decreased exercise tolerance, Reports dyspnea on exertion, Reports shortness of breath Respiratory: Reports cough, Reports cough with sputum, Reports dyspnea, Reports pleurisy, Reports sleep apnea Gastrointestinal: Reports nausea, Reports vomiting Genitourinary: Denies dysuria, Denies hematuria Musculoskeletal: Reports low back pain, Reports myalgias Musculoskeletal: bilateral: ankle swelling, absent: ankle pain, ankle stiffness Integumentary: Denies pruritus, Denies rash Neurological: Reports gait dysfunction, Reports memory loss, Reports weakness Psychiatric: Denies anxiety, Denies depression Endocrine: Denies fatigue, Denies weight change Hematologic/Lymphatic: Reports as per HPI Past Medical History Past Medical History: Cancer, COPD, Diabetes Mellitus, Hyperlipidemia, Hypertension, Liver Disease, Renal Disease, Skin Disorder, Sleep Apnea/CPAP/ BIPAP, Thyroid Disorder Additional Past Medical History / Comment(s): Obesity, thyroid cancer with a previous thyroidectomy, diabetes mellitus, hyperlipidemia, hypertension, questionable liver cirrhosis with hepatosplenomegaly without signs of portal hypertension and a previous EGD, obstructive sleep apnea not on treatment, chronic renal failure, diabetes mellitus, coronary artery disease with previous coronary intervention and stenting, gout, bipolar disorder, depression, anxiety , mild chronic gastritis and small sliding hiatal hernia, rheumatoid arthritis History of Any Multi-Drug Resistant Organisms: MRSA Date of last positivie culture/infection: 2007 MDRO Source:: ankle Past Surgical History: Section, Cholecystectomy, Ear Surgery, Heart Catheterization, Hysterectomy, Joint Replacement, Orthopedic Surgery, Tonsillectomy Additional Past Surgical History / Comment(s): thyroidectomy, hemal ankle ORIF, hemal knee replacement, rt shoulder rotator cuff, hemal cataracts Past Anesthesia/Blood Transfusion Reactions: No Reported Reaction Past Psychological History: Anxiety, Bipolar, Depression Smoking Status: Never smoker Past Alcohol Use History: None Reported Past Drug Use History: None Reported - Past Family History Sister(s) Family Medical History: Cancer, Deep Vein Thrombosis (DVT) Mother Family Medical History: Cancer Medications and Allergies Home Medications Medication Instructions Recorded Confirmed Type Atorvastatin [Lipitor] 20 mg PO HS 04/05/17 11/02/17 History Divalproex Sodium [Depakote] 500 mg PO TID 04/05/17 11/02/17 History LORazepam [Ativan] 1 mg PO BID PRN 04/05/17 11/02/17 History Liothyronine Sodium [Cytomel] 5 mcg PO DAILY 04/05/17 11/02/17 History Lurasidone HCl [Latuda] 20 mg PO W/SUPPER 04/05/17 11/02/17 History Pioglitazone [Actos] 15 mg PO DAILY 04/05/17 11/02/17 History Venlafaxine HCl ER [Effexor Xr] 37.5 mg PO DAILY 04/05/17 11/02/17 History Zolpidem [Ambien] 10 mg PO HS 04/05/17 11/02/17 History glipiZIDE [Glucotrol] 5 mg PO AC-BID 04/05/17 11/02/17 History Dilaudid 1 dose .ROUTE DIRECTED 11/02/17 11/02/17 History Ergocalciferol (Vitamin D2) 50,000 unit PO WE 11/02/17 11/02/17 History [Vitamin D2] Levothyroxine Sodium [Synthroid] 300 mcg PO DAILY 11/02/17 11/02/17 History Nystatin 100,000Unit/gm Cream 1 applic TOPICAL BID 11/02/17 11/02/17 History [Mycostatin Cream] Ondansetron HCl [Zofran] 8 mg PO Q8H PRN 11/02/17 11/02/17 History Ranitidine HCl [Zantac] 300 mg PO HS 11/02/17 11/02/17 History Rifaximin [Xifaxan] 550 mg PO BID 11/02/17 11/02/17 History Tolterodine ER [Detrol LA] 4 mg PO DAILY 11/02/17 11/02/17 History metFORMIN HCL [Glucophage] 1,000 mg PO BID 11/02/17 11/02/17 History Allergies Allergy/AdvReac Type Severity Reaction Status Date / Time morphine Allergy Itching Verified 11/02/17 11:46 pregabalin [From Lyrica] Allergy delusional Verified 11/02/17 11:46 Physical Exam Vitals: Vital Signs Temp Pulse Pulse Resp BP BP Pulse Ox 11/02/17 17:32 94 11/02/17 17:18 90 98 11/02/17 17:06 97.6 F 117 H 24 186/83 93 L 11/02/17 16:12 98.4 F 88 18 136/60 99 11/02/17 15:30 104 H 18 138/73 99 11/02/17 14:00 94 18 118/56 96 11/02/17 13:30 102 H 20 113/55 97 11/02/17 11:03 24 11/02/17 10:39 97.4 F L 125 H 24 153/88 89 L Intake and Output 11/02/17 11/02/17 11/02/17 06:59 14:59 22:59 Other: Weight 149.685 kg Patient Weight 11/03/17 06:59 Weight 149.685 kg Morbidly obese, comfortable a mild degree of respiratory distress.Head exam was generally normal. There was no scleral icterus or corneal arcus. Mucous membranes were moist. Neck is supple and short and there is significant crowding of posterior pharynx. There is no goiter or neck masses this point. Lung sounds are diminished bilaterally and coarse crackles are appreciated lung bases most on the left lung base. No wheezes.Cardiac exam revealed the PMI to be normally situated and sized. The rhythm was regular and no extrasystoles were noted during several minutes of auscultation. The first and second heart sounds were normal and physiologic splitting of the second heart sound was noted. There were no murmurs, rubs, clicks, or gallops. Abdomen is obese soft nontender. There is no direct tenderness or rebound tensile guarding. No ascites and organs cannot be accurately palpated. Extremities reveal trace edema and there is no cyanosis or clubbing at this point. Skin is dry clean and intact and the incision site at the site of the pain pump insertion is also intact. Neurologically the patient is awake and alert and there is no focal neurological deficits. Psychiatric the patient is slightly anxious. Her mood is appropriate and her affect is appropriate Results - Laboratory Findings CBC and BMP: 11/02/17 11:10 11/02/17 11:10 PT/INR, D-dimer PT 10.8 sec (9.0-12.0) 11/02/17 11:10 INR 1.1 (<1.2) 11/02/17 11:10 D-Dimer 2.44 mg/L FEU (<0.60) H 11/02/17 11:10 Abnormal lab findings: Abnormal Labs 11/02/17 11/02/17 11/02/17 11:10 11:10 11:10 WBC 12.0 H Hgb 10.5 L MCHC 28.9 L RDW 16.4 H Neutrophils # (Manual) 8.00 H Monocytes # (Manual) 1.08 H Metamyelocytes # (Man) 0.36 H Myelocytes # (Manual) 0.12 H Nucleated RBCs 2 H APTT D-Dimer 2.44 H BUN Creatinine Glucose POC Glucose (mg/dL) Plasma Lactic Acid Juan Total Creatine Kinase 26 L Troponin I 0.038 H* TSH Urine Appearance Urine Protein Urine Ketones Urine Blood Ur Leukocyte Esterase Urine RBC Urine WBC Urine Bacteria Urine Mucus 11/02/17 11/02/17 11/02/17 11:10 11:10 11:10 WBC Hgb MCHC RDW Neutrophils # (Manual) Monocytes # (Manual) Metamyelocytes # (Man) Myelocytes # (Manual) Nucleated RBCs APTT 18.1 L D-Dimer 1.18 H BUN 32 H Creatinine 1.30 H Glucose 157 H POC Glucose (mg/dL) Plasma Lactic Acid Juan 3.7 H* Total Creatine Kinase Troponin I TSH Urine Appearance Urine Protein Urine Ketones Urine Blood Ur Leukocyte Esterase Urine RBC Urine WBC Urine Bacteria Urine Mucus 11/02/17 11/02/17 11/02/17 11:10 11:30 16:11 WBC Hgb MCHC RDW Neutrophils # (Manual) Monocytes # (Manual) Metamyelocytes # (Man) Myelocytes # (Manual) Nucleated RBCs APTT D-Dimer BUN Creatinine Glucose POC Glucose (mg/dL) Plasma Lactic Acid Juan 4.7 H* Total Creatine Kinase Troponin I TSH 0.054 L Urine Appearance Cloudy H Urine Protein Trace H Urine Ketones Trace H Urine Blood Small H Ur Leukocyte Esterase Large H Urine RBC 7 H Urine WBC 124 H Urine Bacteria Rare H Urine Mucus Rare H 11/02/17 16:43 WBC Hgb MCHC RDW Neutrophils # (Manual) Monocytes # (Manual) Metamyelocytes # (Man) Myelocytes # (Manual) Nucleated RBCs APTT D-Dimer BUN Creatinine Glucose POC Glucose (mg/dL) 230 H Plasma Lactic Acid Juan Total Creatine Kinase Troponin I TSH Urine Appearance Urine Protein Urine Ketones Urine Blood Ur Leukocyte Esterase Urine RBC Urine WBC Urine Bacteria Urine Mucus - Diagnostic Findings Chest x-ray: image reviewed CT scan - chest: image reviewed Assessment and Plan Plan: Assessment 1 acute bilateral pneumonia with secondary acute hypoxic respiratory failure. The patient has increased infiltration perihilar and lower lobes more so on the left compared to the right. 2 acute lactic acidosis secondary to pneumonia and possibly component of intravascular volume depletion 3 chest pain, mainly pleuritic on the left probably related to pneumonia. Doubt any acute ischemic coronary event 4 known history of coronary artery disease with previous coronary intervention and stenting and some nonspecific ST segment changes mainly T-wave inversions with limited troponin leak 5 morbid obesity 6 obstructive sleep apnea not on any treatment in terms of CPAP therapy at this point 7 diabetes mellitus 8 chronic renal failure with a component of diabetic nephropathy 9 thyroid cancer with previous thyroidectomy maintained on thyroid hormone replacement 10 hypertension 11 hyperlipidemia 12 left upper extremity swelling at a time of CT angios the chest. There is no evidence of any pulmonary embolism yet the contrast administration was suboptimal due to contrast extravasation 13 questionable liver cirrhosis. The exact etiology is not clear. No signs of portal hypertension based on the recent EGD 14 bipolar disorder/depression 15 chronic anxiety 16 gout 17 small hiatal hernia along with mild gastritis 18 rheumatoid arthritis DASH Give the patient bolus of a liter of IV fluids and put the patient on 75 mL of normal saline. Cover the patient with broad-spectrum antibiotics with a combination of Zosyn and Levaquin and vancomycin. A triple lumen catheter will be inserted and the CVP will be monitored. May need additional fluid in the CVP remains quite low. Meanwhile initiate fluid resuscitation and antibiotic treatment. Monitor troponins. Echocardiogram in a.m. IV heparin for the next 24 hours. Cardiology consultation. Resume Synthroid. Blood cultures. Urine cultures. Daily chest x-rays. Keep in ICU. Insulin drip if needed for tighter blood sugar control. For now we'll put the patient insulin based on a ss scale protocol. Condition is critical for now. We'll follow. Time with Patient: Greater than 30
--- NOTE | 2017-11-02 19:16 | XR ---
EXAMINATION TYPE: XR chest 1V portable DATE OF EXAM: 11/02/2017 COMPARISON: 11/02/2017 HISTORY: Central line placement TECHNIQUE: Single frontal view of the chest is obtained. FINDINGS: There is a left jugular catheter with the tip in the superior vena cava. There is no sign of a pneumothorax. There is some coarsening of interstitial markings. I see no pleural effusion. Ther e are chest leads. IMPRESSION: Catheter appears in good position.
[2017-11-02] MEDS ORDERED: HEPARIN SODIUM,PORCINE 5,000 UNIT/ML 1 ML VIAL IV ONE (19:57)
[2017-11-02] MEDS: HEPARIN SOD,PORK IN 0.45% NACL 25,000 UNIT in 0.45% NACL 1 500ML.BAG IV SCH (20:04)
[2017-11-02] MEDS: ASPIRIN 325 MG TAB PO SCH (20:08)
[2017-11-02] MEDS: METOPROLOL TARTRATE 12.5 MG TAB PO SCH ×3 (20:09→22:07)
[2017-11-02] MEDS: SODIUM CHLORIDE 0.9% 1,000 ML IV SCH (20:10)
[2017-11-02] MEDS: ATORVASTATIN 20 MG TAB PO SCH (20:11)
[2017-11-02] MEDS: FAMOTIDINE 20 MG TAB PO SCH (20:11)
[2017-11-02 20:29] LABS: Glucose,Whole Blood 218 mg/dL (75-99)
[2017-11-02] MEDS: INSULIN ASPART 100 UNIT/ML 1 ML 10 ML VIAL SQ SCH ×2 (20:35→23:41)
[2017-11-02] MEDS: LURASIDONE 40 MG TAB PO SCH (20:35)
[2017-11-02] MEDS: DIVALPROEX 500 MG TABLET.DR PO SCH (20:37)
[2017-11-02] MEDS ORDERED: SODIUM CHLORIDE 0.9% 1,000 ML IV ONE (20:40)
[2017-11-02] MEDS: NYSTATIN 100,000UNIT/GM CREAM 30 GM TUBE TOPICAL SCH (21:00)
[2017-11-02] MEDS: RIFAXIMIN 550 MG TABLET PO SCH (22:12)
[2017-11-02] MEDS: PIPERACILLIN-TAZOBACTAM 3.375 GM in DEXTROSE/WATER 1 50ML.BAG IVPB SCH (23:04)
[2017-11-02 23:40] LABS: Glucose,Whole Blood 174 mg/dL (75-99)
[2017-11-03] MEDS: HEPARIN SODIUM,PORCINE 5,000 UNIT/ML 1 ML VIAL IV PRN ×3 (02:09→21:00)
[2017-11-03 04:56] LABS: Anisocytosis Slight; Eosinophils % (A) 0 %; Hypochromasia Marked; Poikilocytosis Slight
[2017-11-03 04:59] LABS: Basophils % (A) 0 %; HCT 27.9 % (34.0-46.0); Lymphocytes # (A) 0.9 k/uL (1.0-4.8); Lymphocytes % (A) 14 %; MCH 25.7 pg (25.0-35.0); MCHC 29.2 g/dL (31.0-37.0); MCV 88.1 fL (80.0-100.0); Mean Platelet Volume 7.3; Monocytes # (A) 0.5 k/uL (0-1.0); Monocytes % (A) 7 %; Neutrophils # (A) 4.9 k/uL (1.3-7.7); Neutrophils % (A) 77 %; Platelet Count 135 k/uL (150-450); RBC 3.16 m/uL (3.80-5.40); RDW 17.6 % (11.5-15.5); WBC 6.4 k/uL (3.8-10.6)
[2017-11-03 05:21] LABS: Anion Gap 7 mmol/L; Blood Urea Nitrogen 25 mg/dL (7-17); Calcium 8.8 mg/dL (8.4-10.2); Carbon Dioxide 30 mmol/L (22-30); Chloride 104 mmol/L (98-107); Glucose 128 mg/dL (74-99); Magnesium 1.4 mg/dL (1.6-2.3); Phosphorus 3.6 mg/dL (2.5-4.5); Potassium 5.8 mmol/L (3.5-5.1); Sodium 141 mmol/L (137-145)
[2017-11-03 05:26] LABS: HGB 8.1 gm/dL (11.4-16.0)
[2017-11-03 05:31] LABS: Creatine Kinase MB 0.7 ng/mL (0.0-2.4); Troponin I 0.02 ng/mL (0.000-0.034)
[2017-11-03] MEDS: INSULIN ASPART 100 UNIT/ML 1 ML 10 ML VIAL SQ SCH ×4 (05:31→20:58)
[2017-11-03 05:34] LABS: Glucose,Whole Blood 128 mg/dL (75-99)
[2017-11-03] MEDS ORDERED: VANCOMYCIN 2,000 MG in SODIUM CHLORIDE 0.9% 500 ML IVPB SCH (06:00)
[2017-11-03] MEDS ORDERED: Magnesium Replacement Protocol 1 EACH MISC MISCELLANE PRN (06:14)
[2017-11-03] MEDS ORDERED: LEVOTHYROXINE 100 MCG TAB PO SCH (06:30)
[2017-11-03] MEDS: MAGNESIUM SULFATE-D5W PMX 1 GM in DEXTROSE/WATER 1 100ML.BAG IVPB SCH ×3 (06:49→09:22)
--- NOTE | 2017-11-03 07:19 | XR ---
EXAMINATION TYPE: XR chest 1V DATE OF EXAM: 11/03/2017 CLINICAL HISTORY: Difficulty breathing progress study. TECHNIQUE: Single AP portable upright view of the chest is obtained. COMPARISON: Chest x-ray and CTA chest from one day earlier FINDINGS: There is stable left internal jugular central venous catheter. Right lung remains normally clear on x-ray. There is persistent left basilar opacity consistent with infiltrate and/or atelectas is. Upper lungs remain clear without pneumothorax. Cardiac silhouette size is stable and mildly enlar ged. Osseous structures are intact. IMPRESSION: Cardiomegaly with left lower lobe infiltrate redemonstrated. Less prominent right basilar atelectasis and/or infiltrate is seen better on recent CT.
[2017-11-03] MEDS: ALBUTEROL NEBULIZED 2.5 MG/3 ML INHALATION SCH ×4 (07:23→19:56)
--- NOTE | 2017-11-03 07:58 | PCN ---
PROCEDURE NOTE PREOPERATIVE DIAGNOSIS: Bilateral pneumonia. POSTOPERATIVE DIAGNOSIS: Bilateral pneumonia. TRIPLE LUMEN CATHETER PLACEMENT: Indication Hemodynamic monitoring/Intravenous access. A time-out was completed verifying correct patient, procedure, site, positioning, and implant(s) or special equipment if applicable. The patient was placed in a dependent position appropriate for triple lumen catheter placement based on the vein to be cannulated. The patient's left neck was prepped and draped in sterile fashion. 1% Lidocaine was used to anesthetize the surrounding skin area. A triple lumen 9F Cordis catheter was introduced into the left internal jugular vein using Seldinger technique. The catheter was threaded smoothly over the guide wire and appropriate blood return was obtained. Each lumen of the catheter was evacuated of air and flushed with sterile saline. The catheter was then sutured in place to the skin and a sterile dressing applied. Perfusion to the extremity distal to the point of catheter insertion was checked and found to be adequate. No bedside complication or bleeding. No pneumothorax. MMODL / IJN: [id number] /
[2017-11-03] MEDS: PIPERACILLIN-TAZOBACTAM 3.375 GM in DEXTROSE/WATER 1 50ML.BAG IVPB SCH ×3 (08:08→23:28)
[2017-11-03] MEDS: RIFAXIMIN 550 MG TABLET PO SCH ×2 (08:22→20:48)
[2017-11-03] MEDS: VENLAFAXINE HCL ER 37.5 MG CAP PO SCH (08:24)
[2017-11-03] MEDS: ASPIRIN 325 MG TAB PO SCH (08:24)
[2017-11-03] MEDS: DIVALPROEX 500 MG TABLET.DR PO SCH ×3 (08:24→21:00)
[2017-11-03] MEDS: NYSTATIN 100,000UNIT/GM CREAM 30 GM TUBE TOPICAL SCH ×2 (08:26→20:48)
[2017-11-03] MEDS: OXYBUTYNIN XL 5 MG TAB.ER.24 PO SCH (08:26)
[2017-11-03] MEDS ORDERED: LIOTHYRONINE SODIUM 5 MCG TAB PO SCH (09:00)
[2017-11-03] MEDS ORDERED: ERGOCALCIFEROL 50,000 UNIT CAP PO SCH (09:00)
[2017-11-03] MEDS: METOPROLOL TARTRATE 12.5 MG TAB PO SCH ×2 (09:22→20:47)
[2017-11-03] MEDS: SODIUM CHLORIDE 0.9% 1,000 ML IV SCH ×2 (09:22→20:47)
--- NOTE | 2017-11-03 09:29 | P.CRDCN ---
History of Present Illness Consult date: 11/03/17 Chief complaint: Shortness of breath History of present illness: This is a pleasant 51-year-old female patient with a past medical history significant for coronary artery disease and status post post coronary artery stenting with unknown details at this point where the stenting was performed at [place] about 6 years ago, the patient also is known to have diabetes , hypertension, dyslipidemia, as well as COPD, presented to the emergency room complaining of shortness of breath. She was in her usual state of health that about 3 days ago when she started experiencing fever and chills associated with shortness of breath as well as cough productive of sputum. The patient also describes chest discomfort as a chest tightness. She stated that she complained to her doctor regarding the chest tightness few days ago. The patient was diagnosed with COPD exacerbation as well as pneumonia and currently she is receiving bronchodilators as well as antibiotic. We get involved in the care of the patient because the first set of cardiac enzyme came in to be slightly abnormal and the second set came in to be normal. But more importantly the EKG upon presenting to the hospital showed sinus rhythm without any ischemic ST or T-wave abnormalities. The subsequent EKG showed T wave inversion throughout the chest. Quite concerning for ischemia. The third EKG showed even more prominent T-wave inversion and ST changes as well as. The patient currently is not experiencing any chest pain or chest discomfort. Beside that she underwent a CTA of the chest which did not reveal any PE. The chest x-ray showed abnormal vascular congestion. The BNP came in to be elevated.. The patient does not seems to be in any overt congestive heart failure at this point. Also the hemoglobin is 8.1. Currently the patient is on aspirin, statin, and metoprolol. Also she is on heparin IV. I would recommend conservative medical approach at this point but the patient does need to have a heart catheterization down the line. That is either during this admission or as an outpatient. Past Medical History Past Medical History: Cancer, COPD, Diabetes Mellitus, Hyperlipidemia, Hypertension, Liver Disease, Pneumonia, Renal Disease, Skin Disorder, Sleep Apnea/CPAP/BIPAP, Thyroid Disorder Additional Past Medical History / Comment(s): Obesity, thyroid cancer with a previous thyroidectomy, diabetes mellitus, hyperlipidemia, hypertension, "non alcoholic liver cirrhosis" previous EGD, obstructive sleep apnea not on treatment, chronic renal failure, diabetes mellitus, coronary artery disease with previous coronary intervention and stenting, gout, bipolar disorder, depression, anxiety, mild chronic gastritis and small sliding hiatal hernia, rheumatoid arthritis, endometreosis History of Any Multi-Drug Resistant Organisms: MRSA Date of last positivie culture/infection: 2007 MDRO Source:: ankle Past Surgical History: Section, Cholecystectomy, Ear Surgery, Heart Catheterization With Stent, Hysterectomy, Joint Replacement, Orthopedic Surgery , Tonsillectomy Additional Past Surgical History / Comment(s): thyroidectomy, hemal ankle ORIF, hemal knee replacement, rt shoulder rotator cuff, hemal cataracts, x3 c-sections, tubes in ears as child, pt stated" past heart cath and 1 stent long time ago", pain pump implanted. Past Anesthesia/Blood Transfusion Reactions: No Reported Reaction Date of Last Stent Placement:: unk Smoking Status: Never smoker - Past Family History Sister(s) Family Medical History: Cancer, Deep Vein Thrombosis (DVT) Mother Family Medical History: Cancer, Liver Disease Additional Family Medical History / Comment(s): cirrhosis of the liver Medications and Allergies Home Medications Medication Instructions Recorded Confirmed Type Atorvastatin [Lipitor] 20 mg PO HS 04/05/17 11/02/17 History Divalproex Sodium [Depakote] 500 mg PO TID 04/05/17 11/02/17 History LORazepam [Ativan] 1 mg PO BID PRN 04/05/17 11/02/17 History Liothyronine Sodium [Cytomel] 5 mcg PO DAILY 04/05/17 11/02/17 History Lurasidone HCl [Latuda] 20 mg PO W/SUPPER 04/05/17 11/02/17 History Pioglitazone [Actos] 15 mg PO DAILY 04/05/17 11/02/17 History Venlafaxine HCl ER [Effexor Xr] 37.5 mg PO DAILY 04/05/17 11/02/17 History Zolpidem [Ambien] 10 mg PO HS 04/05/17 11/02/17 History glipiZIDE [Glucotrol] 5 mg PO AC-BID 04/05/17 11/02/17 History Dilaudid 1 dose .ROUTE DIRECTED 11/02/17 11/02/17 History Ergocalciferol (Vitamin D2) 50,000 unit PO WE 11/02/17 11/02/17 History [Vitamin D2] Levothyroxine Sodium [Synthroid] 300 mcg PO DAILY 11/02/17 11/02/17 History Nystatin 100,000Unit/gm Cream 1 applic TOPICAL BID 11/02/17 11/02/17 History [Mycostatin Cream] Ondansetron HCl [Zofran] 8 mg PO Q8H PRN 11/02/17 11/02/17 History Ranitidine HCl [Zantac] 300 mg PO HS 11/02/17 11/02/17 History Rifaximin [Xifaxan] 550 mg PO BID 11/02/17 11/02/17 History Tolterodine ER [Detrol LA] 4 mg PO DAILY 11/02/17 11/02/17 History metFORMIN HCL [Glucophage] 1,000 mg PO BID 11/02/17 11/02/17 History Allergies Allergy/AdvReac Type Severity Reaction Status Date / Time morphine Allergy Itching Verified 11/02/17 11:46 pregabalin [From Lyrica] Allergy delusional Verified 11/02/17 11:46 Physical Exam Vitals: Vital Signs Temp Pulse Pulse Resp BP BP Pulse Ox 11/03/17 09:00 70 12 110/44 97 11/03/17 08:00 97.7 F 69 12 104/52 98 11/03/17 07:00 66 11 L 109/46 97 11/03/17 06:00 61 13 115/48 95 11/03/17 05:00 80 24 112/47 98 11/03/17 04:00 97.5 F L 71 21 119/49 99 11/03/17 03:00 64 14 114/54 98 11/03/17 02:00 64 12 99/56 97 11/03/17 01:00 68 16 90/57 98 11/03/17 00:00 98.1 F 68 12 103/49 96 11/02/17 23:00 74 13 107/50 98 11/02/17 22:00 79 20 103/51 99 11/02/17 21:00 81 15 97/51 97 11/02/17 20:00 97.8 F 79 16 112/58 97 11/02/17 19:30 80 12 105/54 98 11/02/17 19:26 83 11/02/17 19:13 82 11/02/17 19:00 87 15 103/83 97 11/02/17 18:30 89 20 147/113 98 11/02/17 18:26 86 11/02/17 17:32 94 11/02/17 17:18 90 98 11/02/17 17:06 97.6 F 117 H 24 186/83 93 L 11/02/17 16:12 98.4 F 88 18 136/60 99 11/02/17 15:30 104 H 18 138/73 99 11/02/17 14:00 94 18 118/56 96 11/02/17 13:30 102 H 20 113/55 97 11/02/17 11:03 24 11/02/17 10:39 97.4 F L 125 H 24 153/88 89 L Intake and Output 11/02/17 11/03/17 11/03/17 22:59 06:59 14:59 Intake Total 1413.5 1243.106 300 Output Total 505 435 85 Balance 908.5 808.106 215 Intake: IV 1413.5 1121.5 250 Levofloxacin 750Mg-D5w 150 Pmx 750 mg In Dextrose/ Water 1 150ml.bag @ 100 mls/hr IVPB ONCE STA Rx#: [id number] Magnesium Sulfate-D5w Pmx 100 100 1 gm In Dextrose/Water 1 100ml.bag @ 100 mls/hr IVPB Q1H [facility] Rx#: [id number] Piperacillin-Tazobactam 3 37.5 12.5 .375 gm In Dextrose/Water 1 50ml.bag @ 12.5 mls/hr IVPB ONCE STA Rx#: [id number] Sodium Chloride 0.9% 1, 225 675 150 000 ml @ 75 mls/hr IV . [id number] [facility] Rx#:[id number] Sodium Chloride 0.9% 500 500 ml @ 999 mls/hr IV .Q31M ONE Rx#:[id number] Vancomycin 2,000 mg In 501 334 Sodium Chloride 0.9% 500 ml @ 167 mls/hr IVPB Q12HR@0600,1800 [facility] Rx#: [id number] Intake, IV Titration 121.606 50 Amount Heparin Sod,Pork in 0.45% 121.606 NaCl 25,000 unit In 0.45 % NaCl 1 500ml.bag @ 6.68 UNITS/KG/HR 19.99 mls/hr IV .Q24H [facility] Rx#: [id number] Piperacillin-Tazobactam 3 50 .375 gm In Dextrose/Water 1 50ml.bag @ 12.5 mls/hr IVPB ONCE STA Rx#: [id number] Output: Urine 505 435 85 Other: Voiding Method Indwelling Catheter Indwelling Catheter Weight 154.3 kg - Constitutional General appearance: no acute distress - Respiratory Respiratory: bilateral: diminished - Cardiovascular Rhythm: regular Heart sounds: normal: S1, S2 Results 11/03/17 04:30 11/03/17 04:30 Cardiac Enzymes 11/02/17 11/02/17 11/03/17 Range/Units 11:10 11:10 04:30 AST 20 (14-36) U/L CK-MB (CK-2) 0.9 0.7 (0.0-2.4) ng/mL Troponin I 0.038 H* 0.020 (0.000-0.034) ng/mL Coagulation 11/02/17 11/03/17 11/03/17 Range/Units 11:10 : 07:58 PT 10.8 (9.0-12.0) sec APTT 18.1 L 24.7 36.0 H (22.0-30.0) sec CBC 11/02/17 11/03/17 Range/Units 11:10 04:30 WBC 12.0 H 6.4 (3.8-10.6) k/uL RBC 4.08 3.16 L (3.80-5.40) m/uL Hgb 10.5 L 8.1 L D (11.4-16.0) gm/dL Hct 36.2 27.9 L (34.0-46.0) % Plt Count 199 135 L (150-450) k/uL Comprehensive Metabolic Panel 11/02/17 11/03/17 Range/Units 11:10 04:30 Sodium 142 141 (137-145) mmol/L Potassium 5.1 5.8 H (3.5-5.1) mmol/L Chloride 105 104 (98-107) mmol/L Carbon Dioxide 24 30 (22-30) mmol/L BUN 32 H 25 H (7-17) mg/dL Creatinine 1.30 H 1.03 (0.52-1.04) mg/dL Glucose 157 H 128 H (74-99) mg/dL Calcium 9.2 8.8 (8.4-10.2) mg/dL AST 20 (14-36) U/L ALT 27 (9-52) U/L Alkaline Phosphatase 82 (38-126) U/L Total Protein 6.7 (6.3-8.2) g/dL Albumin 3.8 (3.5-5.0) g/dL Current Medications Generic Name Dose Route Start Last Admin Trade Name Freq PRN Reason Stop Dose Admin Albuterol Sulfate 2.5 mg 11/02/17 16:00 11/03/17 07:23 Ventolin Nebulized INHALATION Not Given RT-QID [facility] Albuterol/Ipratropium 3 ml 11/02/17 17:05 Duoneb 0.5 Mg-3 Mg/3 Ml Soln INHALATION RT-Q4H PRN Shortness Of Breath Aspirin 325 mg 11/02/17 17:30 11/03/17 08:24 Aspirin PO 325 mg DAILY [facility] Administration Atorvastatin Calcium 20 mg 11/02/17 21:00 11/02/17 20:11 Lipitor PO 20 mg HS [facility] Administration Divalproex Sodium 500 mg 11/02/17 22:00 11/03/17 08:24 Depakote PO 500 mg TID [facility] Administration Ergocalciferol 50,000 unit 11/03/17 09:00 11/03/17 08:25 Vitamin D2 PO 50,000 unit WE [facility] Administration Famotidine 40 mg 11/02/17 21:00 11/02/17 20:11 Pepcid PO 40 mg HS [facility] Administration Heparin Sodium (Porcine) 0 unit 11/02/17 19:57 11/03/17 02:09 Heparin IV 7,540 unit PER PROTOCOL PRN Administration Low PTT Protocol Levofloxacin 750 mg/ IV 150 mls @ 100 mls/hr 11/03/17 15:00 Solution IVPB Q24H [facility] Heparin Sodium/Sodium Chloride 500 mls @ 19.99 mls/hr 11/02/17 17:00 02:09 25,000 unit/ Sodium Chloride IV 9.68 units/kg/hr .Q24H [facility] 28.97 mls/hr Protocol Titration 6.68 UNITS/KG/HR Piperacillin/Tazobactam/ 50 mls @ 12.5 mls/hr 11/03/17 00:00 11/03/17 08:08 Dextrose 3.375 gm/ IV Solution IVPB 12.5 mls/hr Q8HR [facility] Administration Vancomycin HCl 2,000 mg/ 500 mls @ 167 mls/hr 11/03/17 06:00 11/03/17 05:32 Sodium Chloride IVPB 167 mls/hr Q12HR@0600,1800 [facility] Administration Sodium Chloride 1,000 mls @ 75 mls/hr 11/02/17 19:15 11/03/17 09:22 Saline 0.9% IV 75 mls/hr .[id number] [facility] Administration Magnesium Sulfate/Dextrose 1 100 mls @ 100 mls/hr 11/03/17 06:30 11/03/17 09: 22 gm/ IV Solution IVPB 11/03/17 09:29 100 mls/hr Q1H [facility] Administration Insulin Aspart 0 unit 11/02/17 18:00 11/03/17 05:31 Novolog SQ Not Given Q6HR [facility] Protocol Lorazepam 1 mg 11/02/17 17:11 Ativan PO BID PRN Anxiety Lurasidone HCl 20 mg 11/02/17 17:30 11/02/17 20:35 Latuda PO 20 mg W/SUPPER [facility] Administration Metoprolol Tartrate 12.5 mg 11/02/17 17:30 11/03/17 09:22 Lopressor PO 12.5 mg BID [facility] Administration Miscellaneous Information 1 each 11/02/17 14:21 Rx Info: Iv Contrast Was Given MISCELLANE 11/04/17 14:21 DAILY PRN Per Protocol Miscellaneous Information 1 each 11/02/17 15:43 Pneumonia Protocol Utilized PO ONCE PRN Per Protocol Miscellaneous Information 1 each 11/03/17 06:14 Magnesium Per Protocol MISCELLANE DAILY PRN Per Protocol Protocol Miscellaneous Information 1 each 11/04/17 17:00 Vancomycin Trough Due MISCELLANE 11/04/17 17:01 ONCE ONE Naloxone HCl 0.2 mg 11/02/17 17:05 Narcan IV Q2M PRN Opioid Reversal Nystatin 1 applic 11/02/17 21:00 11/03/17 08:26 Mycostatin Cream TOPICAL 1 applic BID [facility] Administration Oxybutynin Chloride 5 mg 11/03/17 09:00 11/03/17 08:26 Ditropan Xl PO 5 mg DAILY [facility] Administration Rifaximin 550 mg 11/02/17 21:00 11/03/17 08:22 Xifaxan PO 550 mg BID [facility] Administration Venlafaxine HCl 37.5 mg 11/03/17 09:00 11/03/17 08:24 Effexor Xr PO 37.5 mg DAILY [facility] Administration Intake and Output 11/02/17 11/03/17 11/03/17 22:59 06:59 14:59 Intake Total 1413.5 1243.106 300 Output Total 505 435 85 Balance 908.5 808.106 215 Intake: IV 1413.5 1121.5 250 Levofloxacin 750Mg-D5w 150 Pmx 750 mg In Dextrose/ Water 1 150ml.bag @ 100 mls/hr IVPB ONCE STA Rx#: [id number] Magnesium Sulfate-D5w Pmx 100 100 1 gm In Dextrose/Water 1 100ml.bag @ 100 mls/hr IVPB Q1H [facility] Rx#: [id number] Piperacillin-Tazobactam 3 37.5 12.5 .375 gm In Dextrose/Water 1 50ml.bag @ 12.5 mls/hr IVPB ONCE STA Rx#: [id number] Sodium Chloride 0.9% 1, 225 675 150 000 ml @ 75 mls/hr IV . [id number] [facility] Rx#:[id number] Sodium Chloride 0.9% 500 500 ml @ 999 mls/hr IV .Q31M ONE Rx#:[id number] Vancomycin 2,000 mg In 501 334 Sodium Chloride 0.9% 500 ml @ 167 mls/hr IVPB Q12HR@0600,1800 [facility] Rx#: [id number] Intake, IV Titration 121.606 50 Amount Heparin Sod,Pork in 0.45% 121.606 NaCl 25,000 unit In 0.45 % NaCl 1 500ml.bag @ 6.68 UNITS/KG/HR 19.99 mls/hr IV .Q24H [facility] Rx#: [id number] Piperacillin-Tazobactam 3 50 .375 gm In Dextrose/Water 1 50ml.bag @ 12.5 mls/hr IVPB ONCE STA Rx#: [id number] Output: Urine 505 435 85 Other: Voiding Method Indwelling Catheter Indwelling Catheter Weight 154.3 kg 11/03/17 04:30 11/03/17 04:30 Assessment and Plan Assessment: Assessment #1 acute on chronic respiratory failure #2 acute exacerbation of COPD #3 pneumonia #4 acute non-ST elevation myocardial infarction #5 known CAD and prior stenting #6 diabetes type 2 #7 multiple comorbid conditions Plan #1 continue the current medical treatment with aspirin, heparin, beta dru, and statin #2 follow-up on the echocardiogram which was ordered earlier today #3 follow-up on this third set of serial cardiac enzymes #4 as a mentioned earlier the patient does need to have a heart catheterization preferably less than hemoglobin is better. We'll continue following up with her I thank you for allowing us participate in her care
--- NOTE | 2017-11-03 11:18 | P.PN ---
Subjective Progress Note Date: 11/03/17 Principal diagnosis: SOB She was feeling little better compared to yesterday. She is still having nausea and vomiting. Objective - Vital Signs Vital signs: Vital Signs Temp 97.7 F 11/03/17 08:00 Pulse 71 11/03/17 10:00 Resp 12 11/03/17 10:00 BP 133/70 11/03/17 10:00 Pulse Ox 97 11/03/17 10:00 Intake & Output 11/02/17 11/03/17 11/03/17 18:59 06:59 18:59 Intake Total 2656.606 724.142 Output Total 940 130 Balance 1716.606 594.142 Weight 149.685 kg 154.3 kg Intake: IV 2535.0 425 Levofloxacin 750Mg-D5w 150 Pmx 750 mg In Dextrose/ Water 1 150ml.bag @ 100 mls/hr IVPB ONCE [facility] Rx#: [id number] Magnesium Sulfate-D5w Pmx 100 200 1 gm In Dextrose/Water 1 100ml.bag @ 100 mls/hr IVPB Q1H [facility] Rx#: [id number] Piperacillin-Tazobactam 3 50.0 .375 gm In Dextrose/Water 1 50ml.bag @ 12.5 mls/hr IVPB ONCE STA Rx#: [id number] Sodium Chloride 0.9% 1, 900 225 000 ml @ 75 mls/hr IV . [id number] [facility] Rx#:[id number] Sodium Chloride 0.9% 500 500 ml @ 999 mls/hr IV .Q31M [facility] Rx#:[id number] Vancomycin 2,000 mg In 835 Sodium Chloride 0.9% 500 ml @ 167 mls/hr IVPB Q12HR@0600,1800 [facility] Rx#: [id number] Intake, IV Titration 121.606 299.142 Amount Heparin Sod,Pork in 0.45% 121.606 249.142 NaCl 25,000 unit In 0.45 % NaCl 1 500ml.bag @ 6.68 UNITS/KG/HR 19.99 mls/hr IV .Q24H [facility] Rx#: [id number] Piperacillin-Tazobactam 3 50 .375 gm In Dextrose/Water 1 50ml.bag @ 12.5 mls/hr IVPB ONCE STA Rx#: [id number] Output: Urine 940 130 Other: Voiding Method Indwelling Catheter - Exam Constitutional: Morbidly obese, in mild respiratory distress, conversant, pleasant Eyes:Anicteric sclerae, moist conjunctiva, no lid-lag, PERRLA, ENMT: Oropharynx clear, no erythema, exudates Neck: Supple, FROM, no masses, or JVD, No carotid bruits, No thyromegaly Lungs: bilateral expiratory crackles and rhonchi especially at the bases, Clear to percussion, Normal respiratory effort, no accessory muscle use Cardiovascular: Heart regular in rate and rhythm, No murmurs, gallops, or rubs, trace peripheral edema Abdominal: Soft, obese, Nontender, no guarding, rebound or rigidity, Normoactive bowel sounds, No hepatomegaly, No splenomegaly, No palpable mass Skin: Normal temperature, tone, texture, turgor, no induration, No subcutaneous nodules, No rash, lesions, No ulcers Extremities: No digital cyanosis, No clubbing, Pedal pulses intact and symmetrical, Radial pulses intact and symmetrical, No calf tenderness Psychiatric: Alert and oriented to person, place and time, appropriate affect, intact judgement Neuro: Muscles Strength 5/5 in all 4 extremities, Sensation to light touch grossly present throughout, Cranial nerves II-XII grossly intact, no focal sensory deficits - Labs CBC & Chem 7: 11/03/17 04:30 11/03/17 04:30 Labs: Abnormal Lab Results - Last 24 Hours (Table) 11/02/17 11/02/17 11/02/17 Range/Units 11:10 11:10 11:10 WBC 12.0 H (3.8-10.6) k/uL RBC (3.80-5.40) m/uL Hgb 10.5 L (11.4-16.0) gm/dL Hct (34.0-46.0) % MCHC 28.9 L (31.0-37.0) g/dL RDW 16.4 H (11.5-15.5) % Plt Count (150-450) k/uL Neutrophils # (Manual) 8.00 H (1.3-7.7) k/uL Lymphocytes # (1.0-4.8) k/uL Monocytes # (Manual) 1.08 H (0-1.0) k/uL Metamyelocytes # (Man) 0.36 H (0) k/uL Myelocytes # (Manual) 0.12 H (0) k/uL Nucleated RBCs 2 H (0-0) /100 WBC APTT (22.0-30.0) sec D-Dimer 2.44 H (<0.60) mg/L FEU Potassium (3.5-5.1) mmol/L BUN (7-17) mg/dL Creatinine (0.52-1.04) mg/dL Glucose (74-99) mg/dL POC Glucose (mg/dL) (75-99) mg/dL Plasma Lactic Acid Juan (0.7-2.0) mmol/L Magnesium (1.6-2.3) mg/dL Total Creatine Kinase 26 L (30-135) U/L Troponin I 0.038 H* (0.000-0.034) ng/mL TSH (0.465-4.680) mIU/L Urine Appearance (Clear) Urine Protein (Negative) Urine Ketones (Negative) Urine Blood (Negative) Ur Leukocyte Esterase (Negative) Urine RBC (0-5) /hpf Urine WBC (0-5) /hpf Urine Bacteria (None) /hpf Urine Mucus (None) /hpf 11/02/17 11/02/17 11/02/17 Range/Units 11:10 11:10 11:10 WBC (3.8-10.6) k/uL RBC (3.80-5.40) m/uL Hgb (11.4-16.0) gm/dL Hct (34.0-46.0) % MCHC (31.0-37.0) g/dL RDW (11.5-15.5) % Plt Count (150-450) k/uL Neutrophils # (Manual) (1.3-7.7) k/uL Lymphocytes # (1.0-4.8) k/uL Monocytes # (Manual) (0-1.0) k/uL Metamyelocytes # (Man) (0) k/uL Myelocytes # (Manual) (0) k/uL Nucleated RBCs (0-0) /100 WBC APTT 18.1 L (22.0-30.0) sec D-Dimer 1.18 H (<0.60) mg/L FEU Potassium (3.5-5.1) mmol/L BUN 32 H (7-17) mg/dL Creatinine 1.30 H (0.52-1.04) mg/dL Glucose 157 H (74-99) mg/dL POC Glucose (mg/dL) (75-99) mg/dL Plasma Lactic Acid Ujan 3.7 H* (0.7-2.0) mmol/L Magnesium (1.6-2.3) mg/dL Total Creatine Kinase (30-135) U/L Troponin I (0.000-0.034) ng/mL TSH (0.465-4.680) mIU/L Urine Appearance (Clear) Urine Protein (Negative) Urine Ketones (Negative) Urine Blood (Negative) Ur Leukocyte Esterase (Negative) Urine RBC (0-5) /hpf Urine WBC (0-5) /hpf Urine Bacteria (None) /hpf Urine Mucus (None) /hpf 11/02/17 11/02/17 11/02/17 Range/Units 11:10 11:30 16:11 WBC (3.8-10.6) k/uL RBC (3.80-5.40) m/uL Hgb (11.4-16.0) gm/dL Hct (34.0-46.0) % MCHC (31.0-37.0) g/dL RDW (11.5-15.5) % Plt Count (150-450) k/uL Neutrophils # (Manual) (1.3-7.7) k/uL Lymphocytes # (1.0-4.8) k/uL Monocytes # (Manual) (0-1.0) k/uL Metamyelocytes # (Man) (0) k/uL Myelocytes # (Manual) (0) k/uL Nucleated RBCs (0-0) /100 WBC APTT (22.0-30.0) sec D-Dimer (<0.60) mg/L FEU Potassium (3.5-5.1) mmol/L BUN (7-17) mg/dL Creatinine (0.52-1.04) mg/dL Glucose (74-99) mg/dL POC Glucose (mg/dL) (75-99) mg/dL Plasma Lactic Acid Juan 4.7 H* (0.7-2.0) mmol/L Magnesium (1.6-2.3) mg/dL Total Creatine Kinase (30-135) U/L Troponin I (0.000-0.034) ng/mL TSH 0.054 L (0.465-4.680) mIU/L Urine Appearance Cloudy H (Clear) Urine Protein Trace H (Negative) Urine Ketones Trace H (Negative) Urine Blood Small H (Negative) Ur Leukocyte Esterase Large H (Negative) Urine RBC 7 H (0-5) /hpf Urine WBC 124 H (0-5) /hpf Urine Bacteria Rare H (None) /hpf Urine Mucus Rare H (None) /hpf 11/02/17 11/02/17 11/02/17 Range/Units 16:43 18:27 20:26 WBC (3.8-10.6) k/uL RBC (3.80-5.40) m/uL Hgb (11.4-16.0) gm/dL Hct (34.0-46.0) % MCHC (31.0-37.0) g/dL RDW (11.5-15.5) % Plt Count (150-450) k/uL Neutrophils # (Manual) (1.3-7.7) k/uL Lymphocytes # (1.0-4.8) k/uL Monocytes # (Manual) (0-1.0) k/uL Metamyelocytes # (Man) (0) k/uL Myelocytes # (Manual) (0) k/uL Nucleated RBCs (0-0) /100 WBC APTT (22.0-30.0) sec D-Dimer (<0.60) mg/L FEU Potassium (3.5-5.1) mmol/L BUN (7-17) mg/dL Creatinine (0.52-1.04) mg/dL Glucose (74-99) mg/dL POC Glucose (mg/dL) 230 H 221 H 218 H (75-99) mg/dL Plasma Lactic Acid Juan (0.7-2.0) mmol/L Magnesium (1.6-2.3) mg/dL Total Creatine Kinase (30-135) U/L Troponin I (0.000-0.034) ng/mL TSH (0.465-4.680) mIU/L Urine Appearance (Clear) Urine Protein (Negative) Urine Ketones (Negative) Urine Blood (Negative) Ur Leukocyte Esterase (Negative) Urine RBC (0-5) /hpf Urine WBC (0-5) /hpf Urine Bacteria (None) /hpf Urine Mucus (None) /hpf 11/02/17 11/02/17 11/03/17 Range/Units 21:14 23:39 04:30 WBC (3.8-10.6) k/uL RBC 3.16 L (3.80-5.40) m/uL Hgb 8.1 L D (11.4-16.0) gm/dL Hct 27.9 L (34.0-46.0) % MCHC 29.2 L (31.0-37.0) g/dL RDW 17.6 H (11.5-15.5) % Plt Count 135 L (150-450) k/uL Neutrophils # (Manual) (1.3-7.7) k/uL Lymphocytes # 0.9 L (1.0-4.8) k/uL Monocytes # (Manual) (0-1.0) k/uL Metamyelocytes # (Man) (0) k/uL Myelocytes # (Manual) (0) k/uL Nucleated RBCs (0-0) /100 WBC APTT (22.0-30.0) sec D-Dimer (<0.60) mg/L FEU Potassium (3.5-5.1) mmol/L BUN (7-17) mg/dL Creatinine (0.52-1.04) mg/dL Glucose (74-99) mg/dL POC Glucose (mg/dL) 174 H (75-99) mg/dL Plasma Lactic Acid Juan 2.3 H* (0.7-2.0) mmol/L Magnesium (1.6-2.3) mg/dL Total Creatine Kinase (30-135) U/L Troponin I (0.000-0.034) ng/mL TSH (0.465-4.680) mIU/L Urine Appearance (Clear) Urine Protein (Negative) Urine Ketones (Negative) Urine Blood (Negative) Ur Leukocyte Esterase (Negative) Urine RBC (0-5) /hpf Urine WBC (0-5) /hpf Urine Bacteria (None) /hpf Urine Mucus (None) /hpf 11/03/17 11/03/17 11/03/17 Range/Units 04:30 05:30 07:58 WBC (3.8-10.6) k/uL RBC (3.80-5.40) m/uL Hgb (11.4-16.0) gm/dL Hct (34.0-46.0) % MCHC (31.0-37.0) g/dL RDW (11.5-15.5) % Plt Count (150-450) k/uL Neutrophils # (Manual) (1.3-7.7) k/uL Lymphocytes # (1.0-4.8) k/uL Monocytes # (Manual) (0-1.0) k/uL Metamyelocytes # (Man) (0) k/uL Myelocytes # (Manual) (0) k/uL Nucleated RBCs (0-0) /100 WBC APTT 36.0 H (22.0-30.0) sec D-Dimer (<0.60) mg/L FEU Potassium 5.8 H (3.5-5.1) mmol/L BUN 25 H (7-17) mg/dL Creatinine (0.52-1.04) mg/dL Glucose 128 H (74-99) mg/dL POC Glucose (mg/dL) 128 H (75-99) mg/dL Plasma Lactic Acid Juan (0.7-2.0) mmol/L Magnesium 1.4 L (1.6-2.3) mg/dL Total Creatine Kinase (30-135) U/L Troponin I (0.000-0.034) ng/mL TSH (0.465-4.680) mIU/L Urine Appearance (Clear) Urine Protein (Negative) Urine Ketones (Negative) Urine Blood (Negative) Ur Leukocyte Esterase (Negative) Urine RBC (0-5) /hpf Urine WBC (0-5) /hpf Urine Bacteria (None) /hpf Urine Mucus (None) /hpf Microbiology - Last 24 Hours (Table) 11/02/17 11:30 Urine Culture - Preliminary Urine,Clean Catch Assessment and Plan Plan: 1- Acute severe sepsis/Acute community-acquired pneumonia: IV fluids Lactic acid improved D/W Dr. [facility]-spectrum IV antibiotics including Zosyn, vancomycin and Levaquin Duonebs. O2 supplement to keep sats >93% Labs reviewed. 2- Acute non-ST elevation myocardial infarction: Continue IV heparin Continue statin, aspirin and lopressor. D/W Dr. Diaz 3- Nausea and vomiting: Zofran prn. 3- COPD, Diabetes Mellitus type 2, Hyperlipidemia, Hypertension, Liver cirrhosis , Sleep Apnea/CPAP/BIPAP Resume home meds. SSI with BS checks every 6 hours. Duonebs PRN 5- Hypothyroidism: Overtherapeutic on her hormone replacement Hold thyroid replacement as TSH is low. 4- DVT prophylaxis: On heparin.
[2017-11-03] MEDS: ONDANSETRON 4 MG/2 ML VIAL IVP PRN (11:41)
--- NOTE | 2017-11-03 11:44 | ECHOF ---
Referral Reason:EF MEASUREMENTS -------- HEIGHT: 172.7 cm WEIGHT: 149.7 kg BP: 115/48 IVSd: 1.0 cm (0.6 - 1.1) LVIDd: 5.7 cm (3.9 - 5.3) LVPWd: 1.2 cm (0.6 - 1.1) IVSs: 2.0 cm LVIDs: 2.5 cm LVPWs: 1.8 cm Ao Diam: 3.4 cm (2.0 - 3.7) AV Cusp: 2.3 cm (1.5 - 2.6) LA Diam: 3.8 cm (2.7 - 3.8) MV EXCURSION: 24.989 mm (> 18.000) MV EF SLOPE: 118 mm/s (70 - 150) EPSS: 0.8 cm MV E Paul: 1.16 m/s MV DecT: 192 ms MV A Paul: 0.96 m/s MV E/A Ratio: 1.21 RAP: 5.00 mmHg RVSP: 12.70 mmHg FINDINGS -------- Sinus rhythm. This was a technically good study. The left ventricular size is normal. There is mild concentric left ventricular hypertrophy. Overa ll left ventricular systolic function is normal with, an EF between 55 - 60 %. The right ventricle is normal in size and function. The left atrium is normal in size. The right atrium is normal in size. The aortic valve is trileaflet, and appears structurally normal. No aortic stenosis or regurgitation. Mild mitral regurgitation is present. Mild tricuspid regurgitation present. The right ventricular systolic pressure, as measured by Doppl er, is 12.70mmHg. Pulmonic valve appears structurally normal. The aortic root size is normal. Normal inferior vena cava with normal inspiratory collapse consistent with estimated right atrial pre ssure of 5 mmHg. The pericardium is normal. CONCLUSIONS -------- 1. Sinus rhythm. 2. This was a technically good study. 3. The left ventricular size is normal. 4. There is mild concentric left ventricular hypertrophy. 5. Overall left ventricular systolic function is normal with, an EF between 55 - 60 %. 6. The right ventricle is normal in size and function. 7. The left atrium is normal in size. 8. The right atrium is normal in size. 9. The aortic valve is trileaflet, and appears structurally normal. No aortic stenosis or regurgitati on. 10. Mild mitral regurgitation is present. 11. Mild tricuspid regurgitation present. 12. The right ventricular systolic pressure, as measured by Doppler, is 12.70mmHg. 13. Pulmonic valve appears structurally normal. 14. The aortic root size is normal. 15. Normal inferior vena cava with normal inspiratory collapse consistent with estimated right atrial pressure of 5 mmHg. 16. The pericardium is normal. MAINTENANCE DATA ANALYST: Jasmine Medina RDCS
[2017-11-03 12:01] LABS: Creatine Kinase MB 0.8 ng/mL (0.0-2.4); Troponin I 0.019 ng/mL (0.000-0.034)
[2017-11-03 12:32] LABS: Glucose,Whole Blood 125 mg/dL (75-99)
[2017-11-03] MEDS ORDERED: ZOLPIDEM 10 MG TAB PO PRN (13:54)
[2017-11-03] MEDS: PROMETHAZINE INJ 6.25 MG in SODIUM CHLORIDE 0.9% 50 ML IVPB PRN (14:37)
[2017-11-03] MEDS: HEPARIN SOD,PORK IN 0.45% NACL 25,000 UNIT in 0.45% NACL 1 500ML.BAG IV SCH (14:41)
[2017-11-03 15:03] LABS: Hemoglobin A1C 5.6 % (4.0-6.0)
[2017-11-03] MEDS: LEVOFLOXACIN 750MG-D5W PMX 750 MG in DEXTROSE/WATER 1 150ML.BAG IVPB SCH (15:47)
--- NOTE | 2017-11-03 16:02 | P.PN ---
Subjective Progress Note Date: 11/03/17 51-year-old female patient who was hospitalized this afternoon because of generalized weakness, increased shortness of breath, cough and chest congestion and pleuritic left-sided chest pain. The patient is morbidly obese. She has multiple medical problems and comorbidities including history of COPD, obstructive sleep apnea that has not been treated for the time being in addition to coronary artery disease with previous coronary intervention and stenting. In the emergency department, the patient was found to be hypoxic and she was placed on 6 L of oxygen nasal cannula and his saturations up to 90%. She was tachycardic. Her initial lactic acid level was at 3.7 and subsequent level came up to 4.7. The patient had a CAT scan of the chest is alive zinc a CT angios protocol. The contrast to my understanding CT into the subcu venous distention the left upper extremity. The lung windows showed patchy perihilar and basilar pulmonary infiltrate left more than right lung with small pleural effusion. Abdomen grams are noted in the left lower lobe. The patient was found to have mild cardiomegaly. These changes reflect essentially pneumonia. Mediastinum showed no evidence of any masses or lymph nodes. There was calcified hilar and mediastinal lymph nodes seen. The pulmonary arteries were suboptimally opacified due to extravasation of contrast. The patient was started on Levaquin. The patient got moved to the selective unit and following that the patient got moved to the intensive care unit. No IV fluids was given due to lack of IV lines. Based on that a triple lumen catheter was inserted in the left IJ in the intensive care units. The patient was started on fluid resuscitation in addition to broad-spectrum antibiotics utilizing a combination of Zosyn, Levaquin and vancomycin. She has had a remote exposure to MRSA infection in her left ankle. No previous history of MRSA pneumonia. The patient's first set of troponin was at 0.038. She has T-wave inversions on her EKG along with sinus tachycardia and left axis deviation. There are some nonspecific ST segment changes also. Urinalysis was also abnormal with increased white cell count at 124. Influenza screen is been negative. Blood cultures still pending. Apparently the patient has not been eating or drinking over the past few days. She has had increased emesis and she threw up a few times at home. She was in [place] for visitation and she drove back recently. Following that she was seen by Dr. Caldera and she underwent a pain pump insertion for chronic back pain. The site of pain pump insertion and incision site is dry clean and intact at this point. On 2017 the patient is being seen in follow-up. The patient is awake and alert. Her shortness of breath is improved over the past 24 hours. The patient was treated for a pneumonia with a combination of triple antibiotics including dose of Levaquin and vancomycin. Today's chest x-ray shows no significant abnormalities. The patient got resuscitated aggressively with IV fluids. She received more than 3 L of IV fluid in her lactic acid level normalized. She is producing adequate amount of urine output. EKG still showing some T-wave inversions and the troponin levels came down to 0.019. Cardiology intends to perform a cardiac catheterization this patient later stage based on her underlying coronary artery disease. The blood cultures negative thus far. Urine cultures negative. White cell count is down to 6.4. The patient remains on IV heparin. No pleurisy. No chest pain. No change in mental status. No other complaints otherwise. Her CVP is up to 10. The echocardiogram was done and the patient has a preserved LV function with an ejection fraction of 55-60%. No other valvular abnormalities. Objective - Vital Signs Vital signs: Vital Signs Temp 97.4 F L 11/03/17 12:00 Pulse 68 11/03/17 15:00 Resp 13 11/03/17 15:00 BP 131/75 11/03/17 15:00 Pulse Ox 96 11/03/17 15:00 Intake & Output 11/02/17 11/03/17 11/03/17 18:59 06:59 18:59 Intake Total 2656.606 1228.394 Output Total 940 560 Balance 1716.606 668.394 Weight 149.685 kg 154.3 kg 154.3 kg Intake: IV 2535.0 800 Levofloxacin 750Mg-D5w 150 Pmx 750 mg In Dextrose/ Water 1 150ml.bag @ 100 mls/hr IVPB ONCE STA Rx#: [id number] Magnesium Sulfate-D5w Pmx 100 200 1 gm In Dextrose/Water 1 100ml.bag @ 100 mls/hr IVPB Q1H [facility] Rx#: [id number] Piperacillin-Tazobactam 3 50.0 .375 gm In Dextrose/Water 1 50ml.bag @ 12.5 mls/hr IVPB ONCE STA Rx#: [id number] Sodium Chloride 0.9% 1, 900 600 000 ml @ 75 mls/hr IV . [id number] [facility] Rx#:[id number] Sodium Chloride 0.9% 500 500 ml @ 999 mls/hr IV .Q31M [facility] Rx#:[id number] Vancomycin 2,000 mg In 835 Sodium Chloride 0.9% 500 ml @ 167 mls/hr IVPB Q12HR@0600,1800 [facility] Rx#: [id number] Intake, IV Titration 121.606 428.394 Amount Heparin Sod,Pork in 0.45% 121.606 378.394 NaCl 25,000 unit In 0.45 % NaCl 1 500ml.bag @ 6.68 UNITS/KG/HR 19.99 mls/hr IV .Q24H [facility] Rx#: [id number] Piperacillin-Tazobactam 3 50 .375 gm In Dextrose/Water 1 50ml.bag @ 12.5 mls/hr IVPB ONCE STA Rx#: [id number] Output: Urine 940 385 Emesis 175 Other: Voiding Method Indwelling Catheter Indwelling Catheter - Exam Morbidly obese, comfortable a mild degree of respiratory distress.Head exam was generally normal. There was no scleral icterus or corneal arcus. Mucous membranes were moist. Neck is supple and short and there is significant crowding of posterior pharynx. There is no goiter or neck masses this point. Lung sounds are diminished bilaterally and coarse crackles are appreciated lung bases most on the left lung base. No wheezes.Cardiac exam revealed the PMI to be normally situated and sized. The rhythm was regular and no extrasystoles were noted during several minutes of auscultation. The first and second heart sounds were normal and physiologic splitting of the second heart sound was noted. There were no murmurs, rubs, clicks, or gallops. Abdomen is obese soft nontender. There is no direct tenderness or rebound tensile guarding. No ascites and organs cannot be accurately palpated. Extremities reveal trace edema and there is no cyanosis or clubbing at this point. Skin is dry clean and intact and the incision site at the site of the pain pump insertion is also intact. Neurologically the patient is awake and alert and there is no focal neurological deficits. Psychiatric the patient is slightly anxious. Her mood is appropriate and her affect is appropriate - Labs CBC & Chem 7: 11/03/17 04:30 11/03/17 04:30 Labs: Abnormal Lab Results - Last 24 Hours (Table) 11/02/17 11/02/17 11/02/17 Range/Units 11:10 16:11 16:43 RBC (3.80-5.40) m/uL Hgb (11.4-16.0) gm/dL Hct (34.0-46.0) % MCHC (31.0-37.0) g/dL RDW (11.5-15.5) % Plt Count (150-450) k/uL Lymphocytes # (1.0-4.8) k/uL APTT (22.0-30.0) sec Potassium (3.5-5.1) mmol/L BUN (7-17) mg/dL Glucose (74-99) mg/dL POC Glucose (mg/dL) 230 H (75-99) mg/dL Plasma Lactic Acid Juan 4.7 H* (0.7-2.0) mmol/L Magnesium (1.6-2.3) mg/dL Total Creatine Kinase (30-135) U/L TSH 0.054 L (0.465-4.680) mIU/L 11/02/17 11/02/17 11/02/17 Range/Units 18:27 20:26 21:14 RBC (3.80-5.40) m/uL Hgb (11.4-16.0) gm/dL Hct (34.0-46.0) % MCHC (31.0-37.0) g/dL RDW (11.5-15.5) % Plt Count (150-450) k/uL Lymphocytes # (1.0-4.8) k/uL APTT (22.0-30.0) sec Potassium (3.5-5.1) mmol/L BUN (7-17) mg/dL Glucose (74-99) mg/dL POC Glucose (mg/dL) 221 H 218 H (75-99) mg/dL Plasma Lactic Acid Juan 2.3 H* (0.7-2.0) mmol/L Magnesium (1.6-2.3) mg/dL Total Creatine Kinase (30-135) U/L TSH (0.465-4.680) mIU/L 11/02/17 11/03/17 11/03/17 Range/Units 23:39 04:30 04:30 RBC 3.16 L (3.80-5.40) m/uL Hgb 8.1 L D (11.4-16.0) gm/dL Hct 27.9 L (34.0-46.0) % MCHC 29.2 L (31.0-37.0) g/dL RDW 17.6 H (11.5-15.5) % Plt Count 135 L (150-450) k/uL Lymphocytes # 0.9 L (1.0-4.8) k/uL APTT (22.0-30.0) sec Potassium 5.8 H (3.5-5.1) mmol/L BUN 25 H (7-17) mg/dL Glucose 128 H (74-99) mg/dL POC Glucose (mg/dL) 174 H (75-99) mg/dL Plasma Lactic Acid Juan (0.7-2.0) mmol/L Magnesium 1.4 L (1.6-2.3) mg/dL Total Creatine Kinase (30-135) U/L TSH (0.465-4.680) mIU/L 11/03/17 11/03/17 11/03/17 Range/Units 05:30 07:58 11:05 RBC (3.80-5.40) m/uL Hgb (11.4-16.0) gm/dL Hct (34.0-46.0) % MCHC (31.0-37.0) g/dL RDW (11.5-15.5) % Plt Count (150-450) k/uL Lymphocytes # (1.0-4.8) k/uL APTT 36.0 H (22.0-30.0) sec Potassium (3.5-5.1) mmol/L BUN (7-17) mg/dL Glucose (74-99) mg/dL POC Glucose (mg/dL) 128 H (75-99) mg/dL Plasma Lactic Acid Juan (0.7-2.0) mmol/L Magnesium (1.6-2.3) mg/dL Total Creatine Kinase 28 L (30-135) U/L TSH (0.465-4.680) mIU/L 11/03/17 Range/Units 12:31 RBC (3.80-5.40) m/uL Hgb (11.4-16.0) gm/dL Hct (34.0-46.0) % MCHC (31.0-37.0) g/dL RDW (11.5-15.5) % Plt Count (150-450) k/uL Lymphocytes # (1.0-4.8) k/uL APTT (22.0-30.0) sec Potassium (3.5-5.1) mmol/L BUN (7-17) mg/dL Glucose (74-99) mg/dL POC Glucose (mg/dL) 125 H (75-99) mg/dL Plasma Lactic Acid Juan (0.7-2.0) mmol/L Magnesium (1.6-2.3) mg/dL Total Creatine Kinase (30-135) U/L TSH (0.465-4.680) mIU/L Microbiology - Last 24 Hours (Table) 11/02/17 11:10 Blood Culture - Preliminary Blood No Growth after 24 hours 11/02/17 11:30 Urine Culture - Preliminary Urine,Clean Catch Assessment and Plan Plan: Assessment 1 acute bilateral pneumonia with secondary acute hypoxic respiratory failure. The patient has increased infiltration perihilar and lower lobes more so on the left compared to the right. On 2016 the patient is being seen in follow-up in intensive care unit. The patient is doing better compared to yesterday. Hemodynamically stable on broad- spectrum antibiotics. Cultures of been negative thus far. Adequately resuscitated IV fluids. Lactic acidosis improved. She is free of any chest pain for now. 2 acute lactic acidosis secondary to pneumonia and possibly component of intravascular volume depletion, Improved and lactic acid levels have normalized. 3 chest pain, mainly pleuritic on the left probably related to pneumonia. Doubt any acute ischemic coronary event, And a troponin level is down to 0.019. 4 known history of coronary artery disease with previous coronary intervention and stenting and some nonspecific ST segment changes mainly T-wave inversions with limited troponin leak 5 morbid obesity 6 obstructive sleep apnea not on any treatment in terms of CPAP therapy at this point 7 diabetes mellitus 8 chronic renal failure with a component of diabetic nephropathy 9 thyroid cancer with previous thyroidectomy maintained on thyroid hormone replacement 10 hypertension 11 hyperlipidemia 12 left upper extremity swelling at a time of CT angios the chest. There is no evidence of any pulmonary embolism yet the contrast administration was suboptimal due to contrast extravasation 13 questionable liver cirrhosis. The exact etiology is not clear. No signs of portal hypertension based on the recent EGD 14 bipolar disorder/depression 15 chronic anxiety 16 gout 17 small hiatal hernia along with mild gastritis 18 rheumatoid arthritis PLAN We will cut down the IV fluids to 75 mL an hour. Continue the Zosyn and Levaquin. Discontinue the vancomycin. Keep the IV heparin for another 24 hours. Cardiology to follow-up on the case. Echocardiac Jerald was noted and the patient is a preserved LV function. Chest x-ray from today shows clearing of the pulmonary infiltrates with some residual minimal infiltration of the lung bases bilaterally. We'll continue to follow. Keep the patient in ICU for another 24 hours. Advance diet. Sit up on a chair. We'll follow.
[2017-11-03 17:21] LABS: Glucose,Whole Blood 133 mg/dL (75-99)
[2017-11-03] MEDS: LURASIDONE 40 MG TAB PO SCH (17:51)
[2017-11-03] MEDS: ATORVASTATIN 20 MG TAB PO SCH (20:47)
[2017-11-03] MEDS: FAMOTIDINE 20 MG TAB PO SCH (20:47)
[2017-11-03 20:57] LABS: Glucose,Whole Blood 104 mg/dL (75-99)
[2017-11-03] MEDS: IPRATROPIUM-ALBUTEROL 3 ML NEB INHALATION PRN (23:34)
[2017-11-04] MEDS: HEPARIN SOD,PORK IN 0.45% NACL 25,000 UNIT in 0.45% NACL 1 500ML.BAG IV SCH (03:14)
[2017-11-04 05:58] LABS: Anisocytosis Slight; Basophils % (A) 0 %; Eosinophils # (A) 0.1 k/uL (0-0.7); Eosinophils % (A) 2 %; HCT 27.3 % (34.0-46.0); Hypochromasia Marked; Lymphocytes % (A) 37 %; MCH 25.5 pg (25.0-35.0); MCHC 29.3 g/dL (31.0-37.0); MCV 86.9 fL (80.0-100.0); Mean Platelet Volume 8.3; Monocytes # (A) 0.4 k/uL (0-1.0); Monocytes % (A) 8 %; Neutrophils # (A) 2.8 k/uL (1.3-7.7); Neutrophils % (A) 52 %; Platelet Count 133 k/uL (150-450); Poikilocytosis Slight; RBC 3.14 m/uL (3.80-5.40); RDW 17.2 % (11.5-15.5); WBC 5.3 k/uL (3.8-10.6)
--- NOTE | 2017-11-04 07:26 | XR ---
EXAMINATION TYPE: XR chest 1V DATE OF EXAM: 11/04/2017 COMPARISON: 11/03/2017 INDICATION: Pneumonia TECHNIQUE: Single frontal view of the chest is obtained. FINDINGS: The heart size is normal. The pulmonary vasculature is normal. Very minimal increased lung markings are at the left base near costophrenic angle. Some atelectasis m ay be present. Mild pneumonia could be considered. Catheter is present on the left tip in the distal superior vena cava region. No pneumothorax is evide nt. IMPRESSION: 1. Minimal left basilar costophrenic angle infiltrate could be atelectasis or early pneumonia.
[2017-11-04 07:45] LABS: Anion Gap 8 mmol/L; Blood Urea Nitrogen 21 mg/dL (7-17); Calcium 9.2 mg/dL (8.4-10.2); Carbon Dioxide 27 mmol/L (22-30); Chloride 105 mmol/L (98-107); Glucose 94 mg/dL (74-99); Magnesium 1.7 mg/dL (1.6-2.3); Phosphorus 3.9 mg/dL (2.5-4.5); Potassium 5.1 mmol/L (3.5-5.1); Sodium 140 mmol/L (137-145)
[2017-11-04 07:46] LABS: Glucose,Whole Blood 141 mg/dL (75-99)
[2017-11-04] MEDS: INSULIN ASPART 100 UNIT/ML 1 ML 10 ML VIAL SQ SCH ×4 (07:58→21:07)
[2017-11-04] MEDS: PIPERACILLIN-TAZOBACTAM 3.375 GM in DEXTROSE/WATER 1 50ML.BAG IVPB SCH ×2 (07:59→16:24)
[2017-11-04] MEDS: IPRATROPIUM-ALBUTEROL 3 ML NEB INHALATION PRN (08:01)
[2017-11-04] MEDS: DIVALPROEX 500 MG TABLET.DR PO SCH ×3 (08:01→21:07)
[2017-11-04] MEDS: ASPIRIN 325 MG TAB PO SCH (08:01)
[2017-11-04] MEDS: METOPROLOL TARTRATE 12.5 MG TAB PO SCH ×2 (08:02→21:06)
[2017-11-04] MEDS: OXYBUTYNIN XL 5 MG TAB.ER.24 PO SCH (08:02)
[2017-11-04] MEDS: VENLAFAXINE HCL ER 37.5 MG CAP PO SCH (08:02)
[2017-11-04] MEDS: RIFAXIMIN 550 MG TABLET PO SCH ×2 (08:02→21:07)
[2017-11-04] MEDS: NYSTATIN 100,000UNIT/GM CREAM 30 GM TUBE TOPICAL SCH ×2 (08:02→21:07)
[2017-11-04] MEDS: ALBUTEROL NEBULIZED 2.5 MG/3 ML INHALATION SCH ×4 (08:09→19:35)
[2017-11-04] MEDS: MAGNESIUM SULFATE-D5W PMX 1 GM in DEXTROSE/WATER 1 100ML.BAG IVPB SCH ×2 (08:54→10:09)
--- NOTE | 2017-11-04 11:05 | P.PN ---
Subjective Progress Note Date: 11/04/17 Principal diagnosis: Chest discomfort/coronary artery disease This is a pleasant 51-year-old female patient with a past medical history significant for coronary artery disease and status post post coronary artery stenting with unknown details at this point where the stenting was performed at [place] about 6 years ago, the patient also is known to have diabetes , hypertension, dyslipidemia, as well as COPD, presented to the emergency room complaining of shortness of breath. She was in her usual state of health that about 3 days ago when she started experiencing fever and chills associated with shortness of breath as well as cough productive of sputum. The patient also describes chest discomfort as a chest tightness. She stated that she complained to her doctor regarding the chest tightness few days ago. The patient was diagnosed with COPD exacerbation as well as pneumonia and currently she is receiving bronchodilators as well as antibiotic. We get involved in the care of the patient because the first set of cardiac enzyme came in to be slightly abnormal and the second set came in to be normal. But more importantly the EKG upon presenting to the hospital showed sinus rhythm without any ischemic ST or T-wave abnormalities. The subsequent EKG showed T wave inversion throughout the chest. Quite concerning for ischemia. The third EKG showed even more prominent T-wave inversion and ST changes as well as. The patient currently is not experiencing any chest pain or chest discomfort. Beside that she underwent a CTA of the chest which did not reveal any PE. The chest x-ray showed abnormal vascular congestion. The BNP came in to be elevated.. The patient does not seems to be in any overt congestive heart failure at this point. Also the hemoglobin is 8.1. Currently the patient is on aspirin, statin, and metoprolol. Also she is on heparin IV. On follow-up with the patient today, she continues to have mild ongoing chest discomfort she states about 4-5/10 in intensity. She underwent an echocardiogram which revealed normal LV function without any significant valvular abnormalities. I will consider proceeding with a heart catheterization tomorrow. Objective - Vital Signs Vital signs: Vital Signs Temp 98.0 F 11/04/17 08:00 Pulse 78 11/04/17 11:00 Resp 21 11/04/17 11:00 BP 114/58 11/04/17 11:00 Pulse Ox 100 11/04/17 11:00 Intake & Output 11/03/17 11/04/17 11/04/17 18:59 06:59 18:59 Intake Total 9055.033 8235.000 715.332 Output Total 660 570 285 Balance 1043.394 905.000 430.332 Weight 154.3 kg 157.6 kg Intake: IV 1025 975 450 Magnesium Sulfate-D5w Pmx 200 100 1 gm In Dextrose/Water 1 100ml.bag @ 100 mls/hr IVPB Q1H [facility] Rx#: [id number] Piperacillin-Tazobactam 3 50 .375 gm In Dextrose/Water 1 50ml.bag @ 12.5 mls/hr IVPB ONCE [facility] Rx#: [id number] Sodium Chloride 0.9% 1, 825 975 300 000 ml @ 75 mls/hr IV . [id number] [facility] Rx#:[id number] Intake, IV Titration 678.394 500.000 265.332 Amount Heparin Sod,Pork in 0.45% 378.394 500.000 165.332 NaCl 25,000 unit In 0.45 % NaCl 1 500ml.bag @ 6.68 UNITS/KG/HR 19.99 mls/hr IV .Q24H [facility] Rx#: [id number] Levofloxacin 750Mg-D5w 150 Pmx 750 mg In Dextrose/ Water 1 150ml.bag @ 100 mls/hr IVPB Q24H [facility] Rx#: [id number] Magnesium Sulfate-D5w Pmx 100 1 gm In Dextrose/Water 1 100ml.bag @ 100 mls/hr IVPB Q1H [facility] Rx#: [id number] Piperacillin-Tazobactam 3 100 .375 gm In Dextrose/Water 1 50ml.bag @ 12.5 mls/hr IVPB ONCE ST[facility] Rx#: [id number] Promethazine Inj 6.25 mg 50 In Sodium Chloride 0.9% 50 ml @ 200 mls/hr IVPB Q6HR PRN Rx#:[id number] Output: Urine 485 570 285 Emesis 175 Other: Voiding Method Indwelling Catheter Indwelling Catheter - Constitutional General appearance: Present: no acute distress - Respiratory Respiratory: bilateral: CTA - Cardiovascular Rhythm: regular Heart sounds: normal: S1, S2 - Labs CBC & Chem 7: 11/04/17 05:50 11/04/17 05:50 Labs: Abnormal Lab Results - Last 24 Hours (Table) 11/03/17 11/03/1718 Range/Units 11:05 12:31 16:25 RBC (3.80-5.40) m/uL Hgb (11.4-16.0) gm/dL Hct (34.0-46.0) % MCHC (31.0-37.0) g/dL RDW (11.5-15.5) % Plt Count (150-450) k/uL APTT 35.1 H (22.0-30.0) sec BUN (7-17) mg/dL Creatinine (0.52-1.04) mg/dL POC Glucose (mg/dL) 125 H (75-99) mg/dL Total Creatine Kinase 28 L (30-135) U/L 11/03/17 11/03/17 11/04/17 Range/Units 17:19 20:55 05:50 RBC 3.14 L (3.80-5.40) m/uL Hgb 8.0 L (11.4-16.0) gm/dL Hct 27.3 L (34.0-46.0) % MCHC 29.3 L (31.0-37.0) g/dL RDW 17.2 H (11.5-15.5) % Plt Count 133 L (150-450) k/uL APTT (22.0-30.0) sec BUN (7-17) mg/dL Creatinine (0.52-1.04) mg/dL POC Glucose (mg/dL) 133 H 104 H (75-99) mg/dL Total Creatine Kinase (30-135) U/L 11/04/17 11/04/17 11/04/17 Range/Units 05:50 05:50 07:43 RBC (3.80-5.40) m/uL Hgb (11.4-16.0) gm/dL Hct (34.0-46.0) % MCHC (31.0-37.0) g/dL RDW (11.5-15.5) % Plt Count (150-450) k/uL APTT 44.3 H (22.0-30.0) sec BUN 21 H (7-17) mg/dL Creatinine 1.05 H (0.52-1.04) mg/dL POC Glucose (mg/dL) 141 H (75-99) mg/dL Total Creatine Kinase (30-135) U/L Microbiology - Last 24 Hours (Table) 11/02/17 11:30 Urine Culture - Preliminary Urine,Clean Catch Group D Enterococcus 11/02/17 16:11 Blood Culture - Preliminary Blood No Growth after 24 hours 11/02/17 11:10 Blood Culture - Preliminary Blood No Growth after 24 hours Assessment and Plan Assessment: Assessment #1 acute on chronic respiratory failure #2 acute exacerbation of COPD #3 pneumonia #4 acute non-ST elevation myocardial infarction #5 known CAD and prior stenting #6 diabetes type 2 #7 multiple comorbid conditions Plan #1 continue the current medical treatment with aspirin, beta dru, and statin. The heparin IV was stopped and I would agree with this. #2 the echocardiogram revealed normal LV function without any significant valvular abnormalities #3 the third sets of serial cardiac enzymes came in to be normal. #4 as a mentioned earlier the patient does need to have a heart catheterization in the next 24 hours. We'll continue following up with her I thank you for allowing us participate in her care
[2017-11-04] MEDS ORDERED: FUROSEMIDE 10 MG/ML 2 ML VIAL IV ONE (11:22)
[2017-11-04] MEDS: SODIUM CHLORIDE 0.9% 1,000 ML IV SCH (11:40)
--- NOTE | 2017-11-04 11:45 | P.PN ---
<Libra Perez - Last Filed: 11/04/17 11:40> Subjective Progress Note Date: 11/04/17 Principal diagnosis: Left lower lobe pneumonia 51-year-old female patient who was hospitalized this afternoon because of generalized weakness, increased shortness of breath, cough and chest congestion and pleuritic left-sided chest pain. The patient is morbidly obese. She has multiple medical problems and comorbidities including history of COPD, obstructive sleep apnea that has not been treated for the time being in addition to coronary artery disease with previous coronary intervention and stenting. In the emergency department, the patient was found to be hypoxic and she was placed on 6 L of oxygen nasal cannula and his saturations up to 90%. She was tachycardic. Her initial lactic acid level was at 3.7 and subsequent level came up to 4.7. The patient had a CAT scan of the chest is alive zinc a CT angios protocol. The contrast to my understanding CT into the subcu venous distention the left upper extremity. The lung windows showed patchy perihilar and basilar pulmonary infiltrate left more than right lung with small pleural effusion. Abdomen grams are noted in the left lower lobe. The patient was found to have mild cardiomegaly. These changes reflect essentially pneumonia. Mediastinum showed no evidence of any masses or lymph nodes. There was calcified hilar and mediastinal lymph nodes seen. The pulmonary arteries were suboptimally opacified due to extravasation of contrast. The patient was started on Levaquin. The patient got moved to the selective unit and following that the patient got moved to the intensive care unit. No IV fluids was given due to lack of IV lines. Based on that a triple lumen catheter was inserted in the left IJ in the intensive care units. The patient was started on fluid resuscitation in addition to broad-spectrum antibiotics utilizing a combination of Zosyn, Levaquin and vancomycin. She has had a remote exposure to MRSA infection in her left ankle. No previous history of MRSA pneumonia. The patient's first set of troponin was at 0.038. She has T-wave inversions on her EKG along with sinus tachycardia and left axis deviation. There are some nonspecific ST segment changes also. Urinalysis was also abnormal with increased white cell count at 124. Influenza screen is been negative. Blood cultures still pending. Apparently the patient has not been eating or drinking over the past few days. She has had increased emesis and she threw up a few times at home. She was in [place] for visitation and she drove back recently. Following that she was seen by Dr. Caldera and she underwent a pain pump insertion for chronic back pain. The site of pain pump insertion and incision site is dry clean and intact at this point. On 2017 the patient is being seen in follow-up. The patient is awake and alert. Her shortness of breath is improved over the past 24 hours. The patient was treated for a pneumonia with a combination of triple antibiotics including dose of Levaquin and vancomycin. Today's chest x-ray shows no significant abnormalities. The patient got resuscitated aggressively with IV fluids. She received more than 3 L of IV fluid in her lactic acid level normalized. She is producing adequate amount of urine output. EKG still showing some T-wave inversions and the troponin levels came down to 0.019. Cardiology intends to perform a cardiac catheterization this patient later stage based on her underlying coronary artery disease. The blood cultures negative thus far. Urine cultures negative. White cell count is down to 6.4. The patient remains on IV heparin. No pleurisy. No chest pain. No change in mental status. No other complaints otherwise. Her CVP is up to 10. The echocardiogram was done and the patient has a preserved LV function with an ejection fraction of 55-60%. No other valvular abnormalities. The patient was seen again today 11/04/2017 in follow-up in the intensive care unit. She is awake and alert in no acute distress. She denies any worsening shortness of breath, cough or congestion. She is maintaining good O2 saturations in the 90s on 2 L/m per nasal cannula. She has been afebrile. No tachypnea, no tachycardia. Hemodynamically stable. Urine was positive for group D enterococcus. Blood cultures reveal no growth. Leukocytosis. Hemoglobin 8.0. Creatinine 1.05. She remains on Zosyn and Levaquin. Objective - Vital Signs Vital signs: Vital Signs Temp 98.0 F 11/04/17 08:00 Pulse 78 11/04/17 11:00 Resp 21 11/04/17 11:00 BP 114/58 11/04/17 11:00 Pulse Ox 100 11/04/17 11:00 Intake & Output 11/03/17 11/04/17 11/04/17 18:59 06:59 18:59 Intake Total 9546.726 0246.000 715.332 Output Total 660 570 285 Balance 1043.394 905.000 430.332 Weight 154.3 kg 157.6 kg 157.6 kg Intake: IV 1025 975 450 Magnesium Sulfate-D5w Pmx 200 100 1 gm In Dextrose/Water 1 100ml.bag @ 100 mls/hr IVPB Q1H [facility] Rx#: [id number] Piperacillin-Tazobactam 3 50 .375 gm In Dextrose/Water 1 50ml.bag @ 12.5 mls/hr IVPB ONCE STA Rx#: [id number] Sodium Chloride 0.9% 1, 825 975 300 000 ml @ 75 mls/hr IV . [id number] [facility] Rx#:[id number] Intake, IV Titration 678.394 500.000 265.332 Amount Heparin Sod,Pork in 0.45% 378.394 500.000 165.332 NaCl 25,000 unit In 0.45 % NaCl 1 500ml.bag @ 6.68 UNITS/KG/HR 19.99 mls/hr IV .Q24H [facility] Rx#: [id number] Levofloxacin 750Mg-D5w 150 Pmx 750 mg In Dextrose/ Water 1 150ml.bag @ 100 mls/hr IVPB Q24H [facility] Rx#: [id number] Magnesium Sulfate-D5w Pmx 100 1 gm In Dextrose/Water 1 100ml.bag @ 100 mls/hr IVPB Q1H [facility] Rx#: [id number] Piperacillin-Tazobactam 3 100 .375 gm In Dextrose/Water 1 50ml.bag @ 12.5 mls/hr IVPB ONCE STA Rx#: [id number] Promethazine Inj 6.25 mg 50 In Sodium Chloride 0.9% 50 ml @ 200 mls/hr IVPB Q6HR PRN Rx#:[id number] Output: Urine 485 570 285 Emesis 175 Other: Voiding Method Indwelling Catheter Indwelling Catheter Indwelling Catheter - Exam Morbidly obese, comfortable a mild degree of respiratory distress.Head exam was generally normal. There was no scleral icterus or corneal arcus. Mucous membranes were moist. Neck is supple and short and there is significant crowding of posterior pharynx. There is no goiter or neck masses this point. Lung sounds are diminished bilaterally and coarse crackles are appreciated lung bases most on the left lung base. No wheezes.Cardiac exam revealed the PMI to be normally situated and sized. The rhythm was regular and no extrasystoles were noted during several minutes of auscultation. The first and second heart sounds were normal and physiologic splitting of the second heart sound was noted. There were no murmurs, rubs, clicks, or gallops. Abdomen is obese soft nontender. There is no direct tenderness or rebound tensile guarding. No ascites and organs cannot be accurately palpated. Extremities reveal trace edema and there is no cyanosis or clubbing at this point. Skin is dry clean and intact and the incision site at the site of the pain pump insertion is also intact. Neurologically the patient is awake and alert and there is no focal neurological deficits. Psychiatric the patient is slightly anxious. Her mood is appropriate and her affect is appropriate - Labs CBC & Chem 7: 11/04/17 05:50 11/04/17 05:50 Labs: Abnormal Lab Results - Last 24 Hours (Table) 11/03/17 11/03/17 11/03/17 Range/Units 11:05 12:31 16:25 RBC (3.80-5.40) m/uL Hgb (11.4-16.0) gm/dL Hct (34.0-46.0) % MCHC (31.0-37.0) g/dL RDW (11.5-15.5) % Plt Count (150-450) k/uL APTT 35.1 H (22.0-30.0) sec BUN (7-17) mg/dL Creatinine (0.52-1.04) mg/dL POC Glucose (mg/dL) 125 H (75-99) mg/dL Total Creatine Kinase 28 L (30-135) U/L 11/03/17 11/03/17 11/04/17 Range/Units 17:19 20:55 05:50 RBC 3.14 L (3.80-5.40) m/uL Hgb 8.0 L (11.4-16.0) gm/dL Hct 27.3 L (34.0-46.0) % MCHC 29.3 L (31.0-37.0) g/dL RDW 17.2 H (11.5-15.5) % Plt Count 133 L (150-450) k/uL APTT (22.0-30.0) sec BUN (7-17) mg/dL Creatinine (0.52-1.04) mg/dL POC Glucose (mg/dL) 133 H 104 H (75-99) mg/dL Total Creatine Kinase (30-135) U/L 11/04/17 11/04/17 11/04/17 Range/Units 05:50 05:50 07:43 RBC (3.80-5.40) m/uL Hgb (11.4-16.0) gm/dL Hct (34.0-46.0) % MCHC (31.0-37.0) g/dL RDW (11.5-15.5) % Plt Count (150-450) k/uL APTT 44.3 H (22.0-30.0) sec BUN 21 H (7-17) mg/dL Creatinine 1.05 H (0.52-1.04) mg/dL POC Glucose (mg/dL) 141 H (75-99) mg/dL Total Creatine Kinase (30-135) U/L Microbiology - Last 24 Hours (Table) 11/02/17 11:30 Urine Culture - Preliminary Urine,Clean Catch Group D Enterococcus 11/02/17 16:11 Blood Culture - Preliminary Blood No Growth after 24 hours 11/02/17 11:10 Blood Culture - Preliminary Blood No Growth after 24 hours Assessment and Plan Assessment: Assessment 1 acute bilateral pneumonia with secondary acute hypoxic respiratory failure. The patient has increased infiltration perihilar and lower lobes more so on the left compared to the right. On 2016 the patient is being seen in follow-up in intensive care unit. The patient is doing better compared to yesterday. Hemodynamically stable on broad- spectrum antibiotics. Cultures of been negative thus far. Adequately resuscitated IV fluids. Lactic acidosis improved. She is free of any chest pain for now. 2 acute lactic acidosis secondary to pneumonia and possibly component of intravascular volume depletion, Improved and lactic acid levels have normalized. 3 chest pain, mainly pleuritic on the left probably related to pneumonia. Doubt any acute ischemic coronary event, And a troponin level is down to 0.019. 4 known history of coronary artery disease with previous coronary intervention and stenting and some nonspecific ST segment changes mainly T-wave inversions with limited troponin leak 5 morbid obesity 6 obstructive sleep apnea not on any treatment in terms of CPAP therapy at this point 7 diabetes mellitus 8 chronic renal failure with a component of diabetic nephropathy 9 thyroid cancer with previous thyroidectomy maintained on thyroid hormone replacement 10 hypertension 11 hyperlipidemia 12 left upper extremity swelling at a time of CT angios the chest. There is no evidence of any pulmonary embolism yet the contrast administration was suboptimal due to contrast extravasation 13 questionable liver cirrhosis. The exact etiology is not clear. No signs of portal hypertension based on the recent EGD 14 bipolar disorder/depression 15 chronic anxiety 16 gout 17 small hiatal hernia along with mild gastritis 18 rheumatoid arthritis PLAN The patient was seen and evaluated by Dr. Mcleod. We'll continue with her current antibiotics for now. She is cleared for transfer out of the intensive care unit today. We will increase her activity as tolerated. We'll continue to follow. I, the cosigning physician, have performed a history and physical examination on the patient. Lung sounds have few scattered crackles. Maintaining good O2 saturations in the 90s on 2 L/m per nasal cannula. I have discussed the assessment and plan of care with my nurse practitioner, Libra Perez. I attest the above documented note as dictated by her. <Wicho Mcleod - Last Filed: 11/04/17 16:08> Objective - Vital Signs Vital signs: Vital Signs Temp 97.7 F 11/04/17 12:00 Pulse 67 11/04/17 15:00 Resp 12 11/04/17 15:00 BP 102/54 11/04/17 14:00 Pulse Ox 98 11/04/17 15:00 Intake & Output 11/03/17 11/04/17 11/04/17 18:59 06:59 18:59 Intake Total 6023.984 6056.000 945.332 Output Total 563 273 6894 Balance 1043.394 905.000 -614.668 Weight 154.3 kg 157.6 kg 157.6 kg Intake: IV 1025 975 680 Levofloxacin 750Mg-D5w 150 Pmx 750 mg In Dextrose/ Water 1 150ml.bag @ 100 mls/hr IVPB ONCE STA Rx#: [id number] Magnesium Sulfate-D5w Pmx 200 100 1 gm In Dextrose/Water 1 100ml.bag @ 100 mls/hr IVPB Q1H [facility] Rx#: [id number] Piperacillin-Tazobactam 3 50 .375 gm In Dextrose/Water 1 50ml.bag @ 12.5 mls/hr IVPB ONCE STA Rx#: [id number] Sodium Chloride 0.9% 1, 825 975 380 000 ml @ 75 mls/hr IV . [id number] [facility] Rx#:[id number] Intake, IV Titration 678.394 500.000 265.332 Amount Heparin Sod,Pork in 0.45% 378.394 500.000 165.332 NaCl 25,000 unit In 0.45 % NaCl 1 500ml.bag @ 6.68 UNITS/KG/HR 19.99 mls/hr IV .Q24H [facility] Rx#: [id number] Levofloxacin 750Mg-D5w 150 Pmx 750 mg In Dextrose/ Water 1 150ml.bag @ 100 mls/hr IVPB Q24H [facility] Rx#: [id number] Magnesium Sulfate-D5w Pmx 100 1 gm In Dextrose/Water 1 100ml.bag @ 100 mls/hr IVPB Q1H [facility] Rx#: [id number] Piperacillin-Tazobactam 3 100 .375 gm In Dextrose/Water 1 50ml.bag @ 12.5 mls/hr IVPB ONCE STA Rx#: [id number] Promethazine Inj 6.25 mg 50 In Sodium Chloride 0.9% 50 ml @ 200 mls/hr IVPB Q6HR PRN Rx#:[id number] Output: Urine 444 790 0647 Emesis 175 Other: Voiding Method Indwelling Catheter Indwelling Catheter Indwelling Catheter - Labs CBC & Chem 7: 11/04/17 05:50 11/04/17 05:50 Labs: Abnormal Lab Results - Last 24 Hours (Table) 11/03/17 11/03/17 11/03/17 Range/Units 16:25 17:19 20:55 RBC (3.80-5.40) m/uL Hgb (11.4-16.0) gm/dL Hct (34.0-46.0) % MCHC (31.0-37.0) g/dL RDW (11.5-15.5) % Plt Count (150-450) k/uL APTT 35.1 H (22.0-30.0) sec BUN (7-17) mg/dL Creatinine (0.52-1.04) mg/dL POC Glucose (mg/dL) 133 H 104 H (75-99) mg/dL 11/04/17 11/04/17 11/04/17 Range/Units 05:50 05:50 05:50 RBC 3.14 L (3.80-5.40) m/uL Hgb 8.0 L (11.4-16.0) gm/dL Hct 27.3 L (34.0-46.0) % MCHC 29.3 L (31.0-37.0) g/dL RDW 17.2 H (11.5-15.5) % Plt Count 133 L (150-450) k/uL APTT 44.3 H (22.0-30.0) sec BUN 21 H (7-17) mg/dL Creatinine 1.05 H (0.52-1.04) mg/dL POC Glucose (mg/dL) (75-99) mg/dL 11/04/17 11/04/17 Range/Units 07:43 12:23 RBC (3.80-5.40) m/uL Hgb (11.4-16.0) gm/dL Hct (34.0-46.0) % MCHC (31.0-37.0) g/dL RDW (11.5-15.5) % Plt Count (150-450) k/uL APTT (22.0-30.0) sec BUN (7-17) mg/dL Creatinine (0.52-1.04) mg/dL POC Glucose (mg/dL) 141 H 132 H (75-99) mg/dL Microbiology - Last 24 Hours (Table) 11/02/17 11:10 Blood Culture - Preliminary Blood No Growth after 48 hours 11/02/17 11:30 Urine Culture - Preliminary Urine,Clean Catch Group D Enterococcus 11/02/17 16:11 Blood Culture - Preliminary Blood No Growth after 24 hours Assessment and Plan Assessment: The joint evaluation that was done along with the nurse practitioner. The patient is being seen for a follow-up. I attest to the above-mentioned information. The patient is improving in regards to her bilateral lower lobe pneumonia. She remains on a combination of Zosyn and Levaquin. She is free of any chest pain for now. IV heparin will be discontinued. Tentative plan is to do a cardiac catheterization tomorrow by cardiology. Meanwhile, we'll cut down the IV fluids to normal saline at rate of 75 mL an hour. Lovenox Subcu for DVT prophylaxis. We'll continue to follow. The patient can be moved to telemetry unit today.
--- NOTE | 2017-11-04 11:52 | P.PN ---
Subjective Progress Note Date: 11/04/17 Principal diagnosis: SOB Still with sob and congestion, but feels better compared to when she came in. Objective - Vital Signs Vital signs: Vital Signs Temp 98.0 F 11/04/17 08:00 Pulse 78 11/04/17 11:00 Resp 21 11/04/17 11:00 BP 114/58 11/04/17 11:00 Pulse Ox 100 11/04/17 11:00 Intake & Output 11/03/17 11/04/17 11/04/17 18:59 06:59 18:59 Intake Total 3205.217 1808.000 715.332 Output Total 660 570 285 Balance 1043.394 905.000 430.332 Weight 154.3 kg 157.6 kg 157.6 kg Intake: IV 1025 975 450 Magnesium Sulfate-D5w Pmx 200 100 1 gm In Dextrose/Water 1 100ml.bag @ 100 mls/hr IVPB Q1H [facility] Rx#: [id number] Piperacillin-Tazobactam 3 50 .375 gm In Dextrose/Water 1 50ml.bag @ 12.5 mls/hr IVPB ONCE STA Rx#: [id number] Sodium Chloride 0.9% 1, 825 975 300 000 ml @ 75 mls/hr IV . [id number] [facility] Rx#:[id number] Intake, IV Titration 678.394 500.000 265.332 Amount Heparin Sod,Pork in 0.45% 378.394 500.000 165.332 NaCl 25,000 unit In 0.45 % NaCl 1 500ml.bag @ 6.68 UNITS/KG/HR 19.99 mls/hr IV .Q24H [facility] Rx#: [id number] Levofloxacin 750Mg-D5w 150 Pmx 750 mg In Dextrose/ Water 1 150ml.bag @ 100 mls/hr IVPB Q24H [facility] Rx#: [id number] Magnesium Sulfate-D5w Pmx 100 1 gm In Dextrose/Water 1 100ml.bag @ 100 mls/hr IVPB Q1H [facility] Rx#: [id number] Piperacillin-Tazobactam 3 100 .375 gm In Dextrose/Water 1 50ml.bag @ 12.5 mls/hr IVPB ONCE STA Rx#: [id number] Promethazine Inj 6.25 mg 50 In Sodium Chloride 0.9% 50 ml @ 200 mls/hr IVPB Q6HR PRN Rx#:[id number] Output: Urine 485 570 285 Emesis 175 Other: Voiding Method Indwelling Catheter Indwelling Catheter Indwelling Catheter - Exam Constitutional: Morbidly obese, in mild respiratory distress, conversant, pleasant Eyes:Anicteric sclerae, moist conjunctiva, no lid-lag, PERRLA, ENMT: Oropharynx clear, no erythema, exudates Neck: Supple, FROM, no masses, or JVD, No carotid bruits, No thyromegaly Lungs: bilateral expiratory crackles and rhonchi especially at the bases, Clear to percussion, Normal respiratory effort, no accessory muscle use Cardiovascular: Heart regular in rate and rhythm, No murmurs, gallops, or rubs, 1+ pedal edema Abdominal: Soft, obese, Nontender, no guarding, rebound or rigidity, Normoactive bowel sounds, No hepatomegaly, No splenomegaly, No palpable mass Skin: Normal temperature, tone, texture, turgor, no induration, No subcutaneous nodules, No rash, lesions, No ulcers Extremities: No digital cyanosis, No clubbing, Pedal pulses intact and symmetrical, Radial pulses intact and symmetrical, No calf tenderness Psychiatric: Alert and oriented to person, place and time, appropriate affect, intact judgement Neuro: Muscles Strength 5/5 in all 4 extremities, Sensation to light touch grossly present throughout, Cranial nerves II-XII grossly intact, no focal sensory deficits - Labs CBC & Chem 7: 11/04/17 05:50 11/04/17 05:50 Labs: Abnormal Lab Results - Last 24 Hours (Table) 11/03/17 11/03/17 11/03/17 Range/Units 11:05 12:31 16:25 RBC (3.80-5.40) m/uL Hgb (11.4-16.0) gm/dL Hct (34.0-46.0) % MCHC (31.0-37.0) g/dL RDW (11.5-15.5) % Plt Count (150-450) k/uL APTT 35.1 H (22.0-30.0) sec BUN (7-17) mg/dL Creatinine (0.52-1.04) mg/dL POC Glucose (mg/dL) 125 H (75-99) mg/dL Total Creatine Kinase 28 L (30-135) U/L 11/03/17 11/03/17 11/04/17 Range/Units 17:19 20:55 05:50 RBC 3.14 L (3.80-5.40) m/uL Hgb 8.0 L (11.4-16.0) gm/dL Hct 27.3 L (34.0-46.0) % MCHC 29.3 L (31.0-37.0) g/dL RDW 17.2 H (11.5-15.5) % Plt Count 133 L (150-450) k/uL APTT (22.0-30.0) sec BUN (7-17) mg/dL Creatinine (0.52-1.04) mg/dL POC Glucose (mg/dL) 133 H 104 H (75-99) mg/dL Total Creatine Kinase (30-135) U/L 11/04/17 11/04/17 11/04/17 Range/Units 05:50 05:50 07:43 RBC (3.80-5.40) m/uL Hgb (11.4-16.0) gm/dL Hct (34.0-46.0) % MCHC (31.0-37.0) g/dL RDW (11.5-15.5) % Plt Count (150-450) k/uL APTT 44.3 H (22.0-30.0) sec BUN 21 H (7-17) mg/dL Creatinine 1.05 H (0.52-1.04) mg/dL POC Glucose (mg/dL) 141 H (75-99) mg/dL Total Creatine Kinase (30-135) U/L Microbiology - Last 24 Hours (Table) 11/02/17 11:30 Urine Culture - Preliminary Urine,Clean Catch Group D Enterococcus 11/02/17 16:11 Blood Culture - Preliminary Blood No Growth after 24 hours 11/02/17 11:10 Blood Culture - Preliminary Blood No Growth after 24 hours Assessment and Plan Plan: 1- Acute severe sepsis/Acute community-acquired pneumonia/Acute hypoxic respiratory failure/Acute exacerbation of diastolic CHF: D/C IV fluids Will give one dose of lasix 20mg IV as patient is edematous and her BNP was high on admission. Continue zosyn, and Levaquin D/C vanco as no evidence of MRSA on cultures. Duonebs. O2 supplement to keep sats >93% Labs reviewed. 2- Acute non-ST elevation myocardial infarction: IV heparin d/eduardo Continue statin, aspirin and lopressor. Dr. Diaz following--cath within 24 hours Echo done--normal EF. 3- Nausea and vomiting: Zofran prn. 3- COPD, Diabetes Mellitus type 2, Hyperlipidemia, Hypertension, Liver cirrhosis , Sleep Apnea/CPAP/BIPAP Resume home meds. SSI with BS checks every 6 hours. Duonebs PRN 5- Hypothyroidism: Overtherapeutic on her hormone replacement Hold thyroid replacement as TSH is low. 4- DVT prophylaxis: Start lovenox s/q
[2017-11-04 12:25] LABS: Glucose,Whole Blood 132 mg/dL (75-99)
[2017-11-04] MEDS: LEVOFLOXACIN 750MG-D5W PMX 750 MG in DEXTROSE/WATER 1 150ML.BAG IVPB SCH (14:18)
[2017-11-04] MEDS: LORazepam 1 MG TAB PO PRN (15:45)
[2017-11-04] MEDS ORDERED: VANCOMYCIN TROUGH DUE 1 EACH MISC MISCELLANE ONE (17:00)
[2017-11-04] MEDS: PROMETHAZINE INJ 6.25 MG in SODIUM CHLORIDE 0.9% 50 ML IVPB PRN (17:04)
[2017-11-04] MEDS: LURASIDONE 40 MG TAB PO SCH (18:56)
[2017-11-04 18:58] LABS: Glucose,Whole Blood 146 mg/dL (75-99)
[2017-11-04 20:06] LABS: Glucose,Whole Blood 133 mg/dL (75-99)
[2017-11-04] MEDS: ATORVASTATIN 20 MG TAB PO SCH (21:06)
[2017-11-04] MEDS: FAMOTIDINE 20 MG TAB PO SCH (21:06)
--- NOTE | 2017-11-05 00:07 | P.CONS ---
History of Present Illness - Reason for Consult Consult date: 11/04/17 - Chief Complaint Shortness of breath - History of Present Illness 51 year old female who presents to [facility] with significant increasing shortness of breath associated with cough significant chest congestion and left-sided chest pain. The chest pain was somewhat atypical. Because of this she presented to Hospital where she was monitored evidence of Loprox oximetry was placed on 6 L of oxygen. She was tachycardic and had an elevated lactic acid level. Computed tomography scan failed to reveal evidence of a pulmonary embolus. However pneumonic infiltrates were seen. The patient transferred to the intensive care unit. Triple-lumen catheter was placed for her IV access because of the great difficulties or having with her access. She received intravenous antibiotic therapy as well as treatment for her underlying coronary artery disease. The patient relates that she used to live in [place]. When she was there she had significant difficulties with stones within her urinary system. She required urological surgical intervention which included stone removal and stent placement. She's had bouts of multiple urinary tract infections over the years. And recently has had multiple urinary tract infection is been on antibiotic therapy. She has evidence of sepsis and urinary tract infection as per the concern as well as pneumonia. With evidence of VRE being isolated the infectious diseases consultation has been requested. She has a history of a chronic pain syndrome and does have a pain pump. She does relate that she is having difficulties with nausea emesis also occurring rate when she was coming to hospital because she was feeling so poorly. Review of Systems Patient feeling better today. But still has shortness of breath some cough generalized malaise HEENT:Denies headache or acute visual change. Denies sinus or mouth discomforts. Denies neck stiffness or pain. Denies significant oral cavity pain. Denies difficulty on swallowing. Lungs: As per the HPI Cardiovascular: As per the HPI still with shortness of breath atypical chest pain she also has dyspnea with any exertion but no syncope Gastrointestinal: Denies nausea, vomiting, diarrhea, constipation, hematemesis, melena, hematochezia. No no significant change of bowel habit noticed. Musculoskeletal: denies significant myalgias or arthralgias. No new joint swelling. Denies new back pain. Skin: Denies new rash or lesions. No new ulcers or wounds are related.. Neuro: Denies headache or visual change. Denies any new onset weakness or difficulty with ambulation. Denies falls or seizures. Psychiatric: Chronic anxiety Endocrine: Worsening fatigue and weight gain Past Medical History Past Medical History: Cancer, COPD, Diabetes Mellitus, Hyperlipidemia, Hypertension, Liver Disease, Pneumonia, Renal Disease, Skin Disorder, Sleep Apnea/CPAP/BIPAP, Thyroid Disorder Additional Past Medical History / Comment(s): Obesity, thyroid cancer with a previous thyroidectomy, diabetes mellitus, hyperlipidemia, hypertension, "non alcoholic liver cirrhosis" previous EGD, obstructive sleep apnea not on treatment, chronic renal failure, diabetes mellitus, coronary artery disease with previous coronary intervention and stenting, gout, bipolar disorder, depression, anxiety, mild chronic gastritis and small sliding hiatal hernia, rheumatoid arthritis, endometreosis History of Any Multi-Drug Resistant Organisms: MRSA, VRE Year Discovered:: MRSA ankel 2007; VRE URine 11/04/17 MDRO Source:: ankle; urine Past Surgical History: Section, Cholecystectomy, Ear Surgery, Heart Catheterization With Stent, Hysterectomy, Joint Replacement, Orthopedic Surgery , Tonsillectomy Additional Past Surgical History / Comment(s): thyroidectomy, hemal ankle ORIF, hemal knee replacement, rt shoulder rotator cuff, hemal cataracts, x3 c-sections, tubes in ears as child, pt stated" past heart cath and 1 stent long time ago", pain pump implanted. Past Anesthesia/Blood Transfusion Reactions: No Reported Reaction Date of Last Stent Placement:: unk Past Psychological History: Anxiety, Bipolar, Depression Additional Psychological History / Comment(s): Recently was in [place] visiting family. No experience. No international travel. No animal exposures Smoking Status: Never smoker Past Alcohol Use History: None Reported Past Drug Use History: None Reported - Past Family History Sister(s) Family Medical History: Cancer, Deep Vein Thrombosis (DVT) Mother Family Medical History: Cancer, Liver Disease Additional Family Medical History / Comment(s): cirrhosis of the liver Medications and Allergies Home Medications and Allergies Comment(s): Current Medications Albuterol Sulfate (Ventolin Nebulized) 2.5 mg INHALATION RT-QID [facility] Last Admin: 11/04/17 19:35 Dose: Not Given Albuterol/Ipratropium (Duoneb 0.5 Mg-3 Mg/3 Ml Soln) 3 ml INHALATION RT-Q4H PRN PRN Reason: Shortness Of Breath Last Admin: 11/04/17 08:01 Dose: 3 ml Aspirin (Aspirin) 325 mg PO DAILY [facility] Last Admin: 11/04/17 08:01 Dose: 325 mg Atorvastatin Calcium (Lipitor) 20 mg PO HS [facility] Last Admin: 11/04/17 21:06 Dose: 20 mg Daptomycin (Cubicin) 500 mg IVP Q24H [facility] Divalproex Sodium (Depakote) 500 mg PO TID [facility] Last Admin: 11/04/17 21:07 Dose: 500 mg Enoxaparin Sodium (Lovenox) 40 mg SQ DAILY [facility] Ergocalciferol (Vitamin D2) 50,000 unit PO WE [facility] Last Admin: 11/03/17 08:25 Dose: 50,000 unit Famotidine (Pepcid) 40 mg PO HS [facility] Last Admin: 11/04/17 21:06 Dose: 40 mg Levofloxacin 750 mg/ IV (Solution) 150 mls @ 100 mls/hr IVPB Q24H [facility] Last Admin: 11/04/17 14:18 Dose: 100 mls/hr Piperacillin/Tazobactam/ (Dextrose 3.375 gm/ IV Solution) 50 mls @ 12.5 mls/hr IVPB Q8HR [facility] Last Admin: 11/04/17 16:24 Dose: 12.5 mls/hr Sodium Chloride (Saline 0.9%) 1,000 mls @ 75 mls/hr IV .[id number] [facility] Last Admin: 11/04/17 11:40 Dose: Not Given Promethazine HCl 6.25 mg/ (Sodium Chloride) 50.25 mls @ 200 mls/hr IVPB Q6HR PRN PRN Reason: Nausea Last Admin: 11/04/17 17:04 Dose: 200 mls/hr Insulin Aspart (Novolog) 0 unit SQ ACHS [facility] PRN Reason: Protocol Last Admin: 11/04/17 21:07 Dose: 1 unit Lorazepam (Ativan) 1 mg PO BID PRN PRN Reason: Anxiety Last Admin: 11/04/17 15:45 Dose: 1 mg Lurasidone HCl (Latuda) 20 mg PO W/SUPPER [facility] Last Admin: 11/04/17 18:56 Dose: 20 mg Metoprolol Tartrate (Lopressor) 12.5 mg PO BID [facility] Last Admin: 11/04/17 21:06 Dose: 12.5 mg Miscellaneous Information (Pneumonia Protocol Utilized) 1 each PO ONCE PRN PRN Reason: Per Protocol Miscellaneous Information (Magnesium Per Protocol) 1 each MISCELLANE DAILY PRN ; Protocol PRN Reason: Per Protocol Naloxone HCl (Narcan) 0.2 mg IV Q2M PRN PRN Reason: Opioid Reversal Nystatin (Mycostatin Cream) 1 applic TOPICAL BID [facility] Last Admin: 11/04/17 21:07 Dose: 1 applic Ondansetron HCl (Zofran) 4 mg IVP Q6HR PRN PRN Reason: Nausea And Vomiting Last Admin: 11/03/17 11:41 Dose: 4 mg Oxybutynin Chloride (Ditropan Xl) 5 mg PO DAILY [facility] Last Admin: 11/04/17 08:02 Dose: 5 mg Rifaximin (Xifaxan) 550 mg PO BID [facility] Last Admin: 11/04/17 21:07 Dose: 550 mg Venlafaxine HCl (Effexor Xr) 37.5 mg PO DAILY [facility] Last Admin: 11/04/17 08:02 Dose: 37.5 mg Zolpidem Tartrate (Ambien) 10 mg PO HS PRN PRN Reason: Insomnia Last Admin: 11/03/17 21:00 Dose: 10 mg Home Medications Medication Instructions Recorded Confirmed Type Atorvastatin [Lipitor] 20 mg PO HS 04/05/17 11/02/17 History Divalproex Sodium [Depakote] 500 mg PO TID 04/05/17 11/02/17 History LORazepam [Ativan] 1 mg PO BID PRN 04/05/17 11/02/17 History Liothyronine Sodium [Cytomel] 5 mcg PO DAILY 04/05/17 11/02/17 History Lurasidone HCl [Latuda] 20 mg PO W/SUPPER 04/05/17 11/02/17 History Pioglitazone [Actos] 15 mg PO DAILY 04/05/17 11/02/17 History Venlafaxine HCl ER [Effexor Xr] 37.5 mg PO DAILY 04/05/17 11/02/17 History Zolpidem [Ambien] 10 mg PO HS 04/05/17 11/02/17 History glipiZIDE [Glucotrol] 5 mg PO AC-BID 04/05/17 11/02/17 History Dilaudid 1 dose .ROUTE DIRECTED 11/02/17 11/02/17 History Ergocalciferol (Vitamin D2) 50,000 unit PO WE 11/02/17 11/02/17 History [Vitamin D2] Levothyroxine Sodium [Synthroid] 300 mcg PO DAILY 11/02/17 11/02/17 History Nystatin 100,000Unit/gm Cream 1 applic TOPICAL BID 11/02/17 11/02/17 History [Mycostatin Cream] Ondansetron HCl [Zofran] 8 mg PO Q8H PRN 11/02/17 11/02/17 History Ranitidine HCl [Zantac] 300 mg PO HS 11/02/17 11/02/17 History Rifaximin [Xifaxan] 550 mg PO BID 11/02/17 11/02/17 History Tolterodine ER [Detrol LA] 4 mg PO DAILY 11/02/17 11/02/17 History metFORMIN HCL [Glucophage] 1,000 mg PO BID 11/02/17 11/02/17 History Allergies Allergy/AdvReac Type Severity Reaction Status Date / Time morphine Allergy Itching Verified 11/02/17 11:46 pregabalin [From Lyrica] Allergy delusional Verified 11/02/17 11:46 Physical Exam Vitals: Vital Signs Temp Pulse Pulse Resp BP Pulse Ox 11/04/17 21:00 64 14 113/63 11/04/17 20:00 97.9 F 64 66 10 L 104/56 97 11/04/17 19:00 73 17 11/04/17 18:00 71 12 11/04/17 17:00 65 12 127/63 11/04/17 16:00 97.7 F 75 12 127/63 93 L 11/04/17 15:00 67 12 98 11/04/17 14:00 68 19 102/54 98 11/04/17 13:00 73 16 102/54 100 11/04/17 12:00 97.7 F 67 13 102/54 99 11/04/17 11:00 78 21 114/58 100 11/04/17 10:00 75 13 114/58 100 11/04/17 09:00 71 13 99 11/04/17 08:11 66 14 11/04/17 08:01 67 14 98 11/04/17 08:00 98.0 F 69 21 111/54 97 11/04/17 07:00 65 12 111/54 98 11/04/17 06:00 71 12 112/51 98 11/04/17 05:00 98.3 F 69 15 107/54 98 11/04/17 04:00 66 15 99/54 99 11/04/17 03:00 69 13 91/56 97 11/04/17 02:00 68 10 L 100/52 100 11/04/17 01:00 69 14 111/59 99 11/04/17 00:00 65 10 L 110/54 98 Intake and Output 11/04/17 11/04/17 11/05/17 14:59 22:59 06:59 Intake Total 775.332 340 Output Total 1560 860 Balance -784.330 -520 Intake: IV 510 290 Levofloxacin 750Mg-D5w 150 Pmx 750 mg In Dextrose/ Water 1 150ml.bag @ 100 mls/hr IVPB ONCE STA Rx#: [id number] Magnesium Sulfate-D5w Pmx 100 1 gm In Dextrose/Water 1 100ml.bag @ 100 mls/hr IVPB Q1H [facility] Rx#: [id number] Piperacillin-Tazobactam 3 50 .375 gm In Dextrose/Water 1 50ml.bag @ 12.5 mls/hr IVPB ONCE STA Rx#: [id number] Sodium Chloride 0.9% 1, 360 140 000 ml @ 75 mls/hr IV . [id number] [facility] Rx#:[id number] Intake, IV Titration 265.332 50 Amount Heparin Sod,Pork in 0.45% 165.332 NaCl 25,000 unit In 0.45 % NaCl 1 500ml.bag @ 6.68 UNITS/KG/HR 19.99 mls/hr IV .Q24H [facility] Rx#: [id number] Magnesium Sulfate-D5w Pmx 100 1 gm In Dextrose/Water 1 100ml.bag @ 100 mls/hr IVPB Q1H [facility] Rx#: [id number] Piperacillin-Tazobactam 3 50 .375 gm In Dextrose/Water 1 50ml.bag @ 12.5 mls/hr IVPB Q8HR [facility] Rx#: [id number] Output: Urine 1560 860 Other: Voiding Method Indwelling Catheter Bedside Commode Weight 157.6 kg 157.6 kg Patient Weight 11/05/17 06:59 Weight 157.6 kg Pleasant obese 51-year-old woman relates she is feeling slightly better now than before. Still has weakness shortness of breath improved chest pain HEENT: Anicteric conjunctiva are pink and moist nasal mucosa grossly intact without significant lesions, there is no thrush. Neck: The neck is supple without significant lymphadenopathy or thyromegaly. Lungs: There is symmetrical air entry. Basilar crackles are heard. No esteban bronchial sounds. No dullness or egophony. Heart: Regular rate and rhythm with an audible S1-S2, no S3 no S4. There is no significant murmur click or rub, PMI was nondisplaced. Abdomen: Obese, Positive bowel sounds soft and nontender without palpable masses or organomegaly. There was no guarding or rebound. Extremities: The upper extremities have excellent pulses they are symmetric, no significant petechiae or telangiectasia. No splinter hemorrhages were noted. Lower extremities have evidence of some edema but knows he can open ulcers are seen Neuro: Awake alert oriented to person place and time. There are no acute new gross focal sensory motor deficits. Results CBC & Chem 7: 11/04/17 05:50 11/04/17 05:50 Labs: Abnormal Lab Results - Last 24 Hours (Table) 11/04/17 11/04/17 11/04/17 Range/Units 05:50 05:50 05:50 RBC 3.14 L (3.80-5.40) m/uL Hgb 8.0 L (11.4-16.0) gm/dL Hct 27.3 L (34.0-46.0) % MCHC 29.3 L (31.0-37.0) g/dL RDW 17.2 H (11.5-15.5) % Plt Count 133 L (150-450) k/uL APTT 44.3 H (22.0-30.0) sec BUN 21 H (7-17) mg/dL Creatinine 1.05 H (0.52-1.04) mg/dL POC Glucose (mg/dL) (75-99) mg/dL 11/04/17 11/04/17 11/04/17 Range/Units 07:43 12:23 18:55 RBC (3.80-5.40) m/uL Hgb (11.4-16.0) gm/dL Hct (34.0-46.0) % MCHC (31.0-37.0) g/dL RDW (11.5-15.5) % Plt Count (150-450) k/uL APTT (22.0-30.0) sec BUN (7-17) mg/dL Creatinine (0.52-1.04) mg/dL POC Glucose (mg/dL) 141 H 132 H 146 H (75-99) mg/dL 11/04/17 Range/Units 20:04 RBC (3.80-5.40) m/uL Hgb (11.4-16.0) gm/dL Hct (34.0-46.0) % MCHC (31.0-37.0) g/dL RDW (11.5-15.5) % Plt Count (150-450) k/uL APTT (22.0-30.0) sec BUN (7-17) mg/dL Creatinine (0.52-1.04) mg/dL POC Glucose (mg/dL) 133 H (75-99) mg/dL Microbiology - Last 24 Hours (Table) 11/02/17 16:11 Blood Culture - Preliminary Blood No Growth after 48 hours 11/02/17 11:30 Urine Culture - Final Urine,Clean Catch Enterococcus faecium VRE 11/02/17 11:10 Blood Culture - Preliminary Blood No Growth after 48 hours Laboratory Results WBC 5.3 k/uL (3.8-10.6) 11/04/17 05:50 RBC 3.14 m/uL (3.80-5.40) L 11/04/17 05:50 Hgb 8.0 gm/dL (11.4-16.0) L 11/04/17 05:50 Hct 27.3 % (34.0-46.0) L 11/04/17 05:50 MCV 86.9 fL (80.0-100.0) 11/04/17 05:50 MCH 25.5 pg (25.0-35.0) 11/04/17 05:50 MCHC 29.3 g/dL (31.0-37.0) L 11/04/17 05:50 RDW 17.2 % (11.5-15.5) H 11/04/17 05:50 Plt Count 133 k/uL (150-450) L 11/04/17 05:50 Neutrophils % 52 % 11/04/17 05:50 Neutrophils % (Manual) 63 % 11/02/17 11:10 Band Neutrophils % 4 % 11/02/17 11:10 Lymphocytes % 37 % 11/04/17 05:50 Lymphocytes % (Manual) 20 % 11/02/17 11:10 Monocytes % 8 % 11/04/17 05:50 Monocytes % (Manual) 9 % 11/02/17 11:10 Eosinophils % 2 % 11/04/17 05:50 Eosinophils % (Manual) 1 % 11/02/17 11:10 Basophils % 0 % 11/04/17 05:50 Metamyelocytes % 3 % 11/02/17 11:10 Myelocytes % 1 % 11/02/17 11:10 Neutrophils # 2.8 k/uL (1.3-7.7) 11/04/17 05:50 Neutrophils # (Manual) 8.00 k/uL (1.3-7.7) H 11/02/17 11:10 Lymphocytes # 2.0 k/uL (1.0-4.8) 11/04/17 05:50 Lymphocytes # (Manual) 2.40 k/uL (1.0-4.8) 11/02/17 11:10 Monocytes # 0.4 k/uL (0-1.0) 11/04/17 05:50 Monocytes # (Manual) 1.08 k/uL (0-1.0) H 11/02/17 11:10 Eosinophils # 0.1 k/uL (0-0.7) 11/04/17 05:50 Eosinophils # (Manual) 0.12 k/uL (0-0.7) 11/02/17 11:10 Basophils # 0.0 k/uL (0-0.2) 11/04/17 05:50 Metamyelocytes # (Man) 0.36 k/uL (0) H 11/02/17 11:10 Myelocytes # (Manual) 0.12 k/uL (0) H 11/02/17 11:10 Nucleated RBCs 2 /100 WBC (0-0) H 11/02/17 11:10 Manual Slide Review Performed 11/02/17 11:10 Polychromasia Present 11/02/17 11:10 Hypochromasia Marked 11/04/17 05:50 Poikilocytosis Slight 11/04/17 05:50 Anisocytosis Slight 11/04/17 05:50 PT 10.8 sec (9.0-12.0) 11/02/17 11:10 INR 1.1 (<1.2) 11/02/17 11:10 APTT 44.3 sec (22.0-30.0) H 11/04/17 05:50 D-Dimer 2.44 mg/L FEU (<0.60) H 11/02/17 11:10 Sodium 140 mmol/L (137-145) 11/04/17 05:50 Potassium 5.1 mmol/L (3.5-5.1) 11/04/17 05:50 Chloride 105 mmol/L (98-107) 11/04/17 05:50 Carbon Dioxide 27 mmol/L (22-30) 11/04/17 05:50 Anion Gap 8 mmol/L 11/04/17 05:50 BUN 21 mg/dL (7-17) H 11/04/17 05:50 Creatinine 1.05 mg/dL (0.52-1.04) H 11/04/17 05:50 Est GFR (MDRD) Af Amer >60 (>60 ml/min/1.73 sqM) 11/04/17 05:50 Est GFR (MDRD) Non-Af 55 (>60 ml/min/1.73 sqM) 11/04/17 05:50 Glucose 94 mg/dL (74-99) 11/04/17 05:50 POC Glucose (mg/dL) 133 mg/dL (75-99) H 11/04/17 20:04 POC Glu Manager [employer] Makayla Morleand 11/04/17 20:[address] Glu mg/dL 114 11/03/17 04:30 Hemoglobin A1c 5.6 % (4.0-6.0) 11/03/17 04:30 Lactic Ac Sepsis Rflx Y 11/02/17 22:03 Plasma Lactic Acid Juan 1.0 mmol/L (0.7-2.0) 11/03/17 01:18 Calcium 9.2 mg/dL (8.4-10.2) 11/04/17 05:50 Phosphorus 3.9 mg/dL (2.5-4.5) 11/04/17 05:50 Magnesium 1.7 mg/dL (1.6-2.3) 11/04/17 05:50 Total Bilirubin 0.6 mg/dL (0.2-1.3) 11/02/17 11:10 AST 20 U/L (14-36) 11/02/17 11:10 ALT 27 U/L (9-52) 11/02/17 11:10 Alkaline Phosphatase 82 U/L (38-126) 11/02/17 11:10 Total Creatine Kinase 28 U/L (30-135) L 11/03/17 11:05 CK-MB (CK-2) 0.8 ng/mL (0.0-2.4) 11/03/17 11:05 CK-MB (CK-2) Rel Index 2.9 11/03/17 11:05 Troponin I 0.019 ng/mL (0.000-0.034) 11/03/17 11:05 NT-Pro-B Natriuret Pep 76498 pg/mL 11/02/17 11:10 Total Protein 6.7 g/dL (6.3-8.2) 11/02/17 11:10 Albumin 3.8 g/dL (3.5-5.0) 11/02/17 11:10 TSH 0.054 mIU/L (0.465-4.680) L 11/02/17 11:10 Urine Color Yellow 11/02/17 11:30 Urine Appearance Cloudy (Clear) H 11/02/17 11:30 Urine pH 5.5 (5.0-8.0) 11/02/17 11:30 Ur Specific [place] 1.019 (1.001-1.035) 11/02/17 11:30 Urine Protein Trace (Negative) H 11/02/17 11:30 Urine Glucose (UA) Negative (Negative) 11/02/17 11:30 Urine Ketones Trace (Negative) H 11/02/17 11:30 Urine Blood Small (Negative) H 11/02/17 11:30 Urine Nitrite Negative (Negative) 11/02/17 11:30 Urine Bilirubin Negative (Negative) 11/02/17 11:30 Urine Urobilinogen <2.0 mg/dL (<2.0) 11/02/17 11:30 Ur Leukocyte Esterase Large (Negative) H 11/02/17 11:30 Urine RBC 7 /hpf (0-5) H 11/02/17 11:30 Urine WBC 124 /hpf (0-5) H 11/02/17 11:30 Ur Squamous Epith Cells 1 /hpf (0-4) 11/02/17 11:30 Urine Bacteria Rare /hpf (None) H 11/02/17 11:30 Urine Mucus Rare /hpf (None) H 11/02/17 11:30 Stool Occult Blood Negative (Negative) 11/02/17 09:50 Influenza Type A RNA Not Detected (Not Detectd) 11/02/17 11:10 Influenza Type B (PCR) Not Detected (Not Detectd) 11/02/17 11:10 Microbiology 11/02/17 16:11 Blood Blood Culture - Preliminary No Growth after 48 hours 11/02/17 11:30 Urine,Clean Catch Urine Culture - Final Enterococcus faecium VRE 11/02/17 11:10 Blood Blood Culture - Preliminary No Growth after 48 hours Assessment and Plan (1) Pneumonia Current Visit: Yes Status: Acute Code(s): J18.9 - PNEUMONIA, UNSPECIFIED ORGANISM SNOMED Code(s): 262651684 (2) Acute UTI Current Visit: No Status: Acute Code(s): N39.0 - URINARY TRACT INFECTION, SITE NOT SPECIFIED SNOMED Code(s): 203387463 (3) Vancomycin resistant Enterococcus infection Narrative/Plan: 51-year-old female presents to Hospital feeling poorly with shortness of breath cough or chest pain malaise find evidence of sepsis at admission. Concerns pneumonia by her chest x-ray as well as hypoxia after evaluation. Required transferred to intensive care unit triple-lumen catheters in place and she's been receiving intravenous antibiotic therapy. Her pulmonary status is improving but she continues to feel quite poorly. She does have a chronic history of urinary infections. She's had multiple courses of antibiotics over the last year. He did have urological surgical intervention several years ago when she was in [place] because of stone and obstruction and required a stent to be placed at that time. Patient has evidence of urinary tract infection and VRE is an isolated. Daptomycin is added to the treatment for pneumonia she receiving Zosyn and Levaquin for. She does seem to be having some improvement of her pulmonary status. Given her many difficulties assessment for Legionella should be done and once negative then levofloxacin could be discontinued. Unclear what the course of antibiotic therapy will be at the time of her discharge, but she is on 2 antipsychotics and constantly Zyvox would not be an option orally at discharge. Current Visit: Yes Status: Acute Code(s): A49.1 - STREPTOCOCCAL INFECTION, UNSPECIFIED SITE; Z16.21 - RESISTANCE TO VANCOMYCIN SNOMED Code(s): 034174229
[2017-11-05] MEDS: DAPTOmycin IN 0.9% NACL 500 MG/10 ML SYRINGE IVP SCH ×2 (01:21→22:31)
[2017-11-05] MEDS: PIPERACILLIN-TAZOBACTAM 3.375 GM in DEXTROSE/WATER 1 50ML.BAG IVPB SCH ×3 (01:24→15:08)
[2017-11-05] MEDS: SODIUM CHLORIDE 0.9% 1,000 ML IV SCH ×2 (01:28→14:32)
[2017-11-05 06:56] LABS: Glucose,Whole Blood 127 mg/dL (75-99)
--- NOTE | 2017-11-05 07:18 | XR ---
EXAMINATION TYPE: XR chest 1V DATE OF EXAM: 11/05/2017 HISTORY: Shortness of breath. COMPARISON: 11/04/2017 TECHNIQUE: Single view of the chest is submitted. FINDINGS: Demonstrated are scattered senescent parenchymal change. There is no evidence for focal infiltrate. The heart is stable. Hilar and mediastinal structures are within normal limits. Degenerative changes are seen of the dorsal spine. IMPRESSION: 1. Chronic changes without evidence for acute pulmonary disease.
[2017-11-05] MEDS: ALBUTEROL NEBULIZED 2.5 MG/3 ML INHALATION SCH ×4 (07:46→19:49)
[2017-11-05] MEDS: INSULIN ASPART 100 UNIT/ML 1 ML 10 ML VIAL SQ SCH ×4 (08:05→20:47)
[2017-11-05] MEDS: DIVALPROEX 500 MG TABLET.DR PO SCH ×3 (08:06→20:48)
[2017-11-05] MEDS: NYSTATIN 100,000UNIT/GM CREAM 30 GM TUBE TOPICAL SCH ×2 (08:06→20:46)
[2017-11-05] MEDS: METOPROLOL TARTRATE 12.5 MG TAB PO SCH ×2 (08:06→20:48)
[2017-11-05] MEDS: ENOXAPARIN 40 MG/0.4 ML SYRINGE SQ SCH (08:06)
[2017-11-05] MEDS: ASPIRIN 325 MG TAB PO SCH (08:07)
[2017-11-05] MEDS: VENLAFAXINE HCL ER 37.5 MG CAP PO SCH (08:07)
[2017-11-05] MEDS: RIFAXIMIN 550 MG TABLET PO SCH ×2 (08:07→20:46)
[2017-11-05] MEDS: OXYBUTYNIN XL 5 MG TAB.ER.24 PO SCH (08:08)
[2017-11-05 09:04] LABS: Basophils % (A) 0 %; Eosinophils # (A) 0.3 k/uL (0-0.7); Eosinophils % (A) 6 %; HCT 28.1 % (34.0-46.0); HGB 8.2 gm/dL (11.4-16.0); Hypochromasia Marked; Lymphocytes # (A) 1.5 k/uL (1.0-4.8); Lymphocytes % (A) 30 %; MCH 25.6 pg (25.0-35.0); MCHC 29.4 g/dL (31.0-37.0); MCV 87.1 fL (80.0-100.0); Mean Platelet Volume 7.7; Monocytes # (A) 0.3 k/uL (0-1.0); Monocytes % (A) 6 %; Neutrophils # (A) 2.9 k/uL (1.3-7.7); Neutrophils % (A) 57 %; Platelet Count 144 k/uL (150-450); Poikilocytosis Slight; RBC 3.22 m/uL (3.80-5.40); RDW 15.9 % (11.5-15.5)
[2017-11-05 09:22] LABS: Anion Gap 5 mmol/L; Calcium 9.3 mg/dL (8.4-10.2); Carbon Dioxide 31 mmol/L (22-30); Chloride 102 mmol/L (98-107); Glucose 124 mg/dL (74-99); Magnesium 1.4 mg/dL (1.6-2.3); Phosphorus 3.9 mg/dL (2.5-4.5); Potassium 4.9 mmol/L (3.5-5.1); Sodium 138 mmol/L (137-145)
[2017-11-05 09:52] LABS: Blood Urea Nitrogen 19 mg/dL (7-17)
--- NOTE | 2017-11-05 11:20 | P.PN ---
<Libra Perez - Last Filed: 11/05/17 11:13> Subjective Progress Note Date: 11/05/17 Principal diagnosis: Left lower lobe pneumonia and a non-ST segment elevation myocardial infarction. 51-year-old female patient who was hospitalized this afternoon because of generalized weakness, increased shortness of breath, cough and chest congestion and pleuritic left-sided chest pain. The patient is morbidly obese. She has multiple medical problems and comorbidities including history of COPD, obstructive sleep apnea that has not been treated for the time being in addition to coronary artery disease with previous coronary intervention and stenting. In the emergency department, the patient was found to be hypoxic and she was placed on 6 L of oxygen nasal cannula and his saturations up to 90%. She was tachycardic. Her initial lactic acid level was at 3.7 and subsequent level came up to 4.7. The patient had a CAT scan of the chest is alive zinc a CT angios protocol. The contrast to my understanding CT into the subcu venous distention the left upper extremity. The lung windows showed patchy perihilar and basilar pulmonary infiltrate left more than right lung with small pleural effusion. Abdomen grams are noted in the left lower lobe. The patient was found to have mild cardiomegaly. These changes reflect essentially pneumonia. Mediastinum showed no evidence of any masses or lymph nodes. There was calcified hilar and mediastinal lymph nodes seen. The pulmonary arteries were suboptimally opacified due to extravasation of contrast. The patient was started on Levaquin. The patient got moved to the selective unit and following that the patient got moved to the intensive care unit. No IV fluids was given due to lack of IV lines. Based on that a triple lumen catheter was inserted in the left IJ in the intensive care units. The patient was started on fluid resuscitation in addition to broad-spectrum antibiotics utilizing a combination of Zosyn, Levaquin and vancomycin. She has had a remote exposure to MRSA infection in her left ankle. No previous history of MRSA pneumonia. The patient's first set of troponin was at 0.038. She has T-wave inversions on her EKG along with sinus tachycardia and left axis deviation. There are some nonspecific ST segment changes also. Urinalysis was also abnormal with increased white cell count at 124. Influenza screen is been negative. Blood cultures still pending. Apparently the patient has not been eating or drinking over the past few days. She has had increased emesis and she threw up a few times at home. She was in [place] for visitation and she drove back recently. Following that she was seen by Dr. Caldera and she underwent a pain pump insertion for chronic back pain. The site of pain pump insertion and incision site is dry clean and intact at this point. On 2017 the patient is being seen in follow-up. The patient is awake and alert. Her shortness of breath is improved over the past 24 hours. The patient was treated for a pneumonia with a combination of triple antibiotics including dose of Levaquin and vancomycin. Today's chest x-ray shows no significant abnormalities. The patient got resuscitated aggressively with IV fluids. She received more than 3 L of IV fluid in her lactic acid level normalized. She is producing adequate amount of urine output. EKG still showing some T-wave inversions and the troponin levels came down to 0.019. Cardiology intends to perform a cardiac catheterization this patient later stage based on her underlying coronary artery disease. The blood cultures negative thus far. Urine cultures negative. White cell count is down to 6.4. The patient remains on IV heparin. No pleurisy. No chest pain. No change in mental status. No other complaints otherwise. Her CVP is up to 10. The echocardiogram was done and the patient has a preserved LV function with an ejection fraction of 55-60%. No other valvular abnormalities. The patient was seen again today 11/04/2017 in follow-up in the intensive care unit. She is awake and alert in no acute distress. She denies any worsening shortness of breath, cough or congestion. She is maintaining good O2 saturations in the 90s on 2 L/m per nasal cannula. She has been afebrile. No tachypnea, no tachycardia. Hemodynamically stable. Urine was positive for group D enterococcus. Blood cultures reveal no growth. Leukocytosis. Hemoglobin 8.0. Creatinine 1.05. She remains on Zosyn and Levaquin. The patient was seen again today 11/05/2017 as a telemetry overflow in the intensive care unit. She remains awake and alert in no acute distress. She denies any worsening shortness of breath, cough or congestion. She denies any chest pain, palpitations lightheadedness or dizziness. She has been afebrile. Maintaining good O2 saturations in the high 90s on 2 L. Hemodynamically stable. Her urine is positive for enterococcus fascia and VRE. She has been seen by infectious disease. She is currently on daptomycin, Zosyn and Levaquin. No leukocytosis. Hemoglobin 8.2. Creatinine 1.14. Objective - Vital Signs Vital signs: Vital Signs Temp 98.2 F 11/05/17 08:00 Pulse 74 11/05/17 08:00 Resp 14 11/05/17 08:22 BP 118/59 11/05/17 08:00 Pulse Ox 97 11/05/17 08:00 Intake & Output 11/04/17 11/05/17 11/05/17 18:59 06:59 18:59 Intake Total 1055.332 290 140 Output Total 2110 640 0 Balance -1054.668 -350 140 Weight 157.6 kg 160.1 kg Intake: IV 740 290 40 Levofloxacin 750Mg-D5w 150 Pmx 750 mg In Dextrose/ Water 1 150ml.bag @ 100 mls/hr IVPB ONCE STA Rx#: [id number] Magnesium Sulfate-D5w Pmx 100 1 gm In Dextrose/Water 1 100ml.bag @ 100 mls/hr IVPB Q1H [facility] Rx#: [id number] Piperacillin-Tazobactam 3 50 50 .375 gm In Dextrose/Water 1 50ml.bag @ 12.5 mls/hr IVPB ONCE STA Rx#: [id number] Sodium Chloride 0.9% 1, 440 240 40 000 ml @ 75 mls/hr IV . [id number] [facility] Rx#:[id number] Intake, IV Titration 315.332 100 Amount Heparin Sod,Pork in 0.45% 165.332 NaCl 25,000 unit In 0.45 % NaCl 1 500ml.bag @ 6.68 UNITS/KG/HR 19.99 mls/hr IV .Q24H [facility] Rx#: [id number] Magnesium Sulfate-D5w Pmx 100 1 gm In Dextrose/Water 1 100ml.bag @ 100 mls/hr IVPB Q1H [facility] Rx#: [id number] Piperacillin-Tazobactam 3 50 100 .375 gm In Dextrose/Water 1 50ml.bag @ 12.5 mls/hr IVPB Q8HR [facility] Rx#: [id number] Output: Urine 2110 640 0 Other: Voiding Method Indwelling Catheter Bedside Commode Bedside Commode # Bowel Movements 1 - Exam Morbidly obese, comfortable a mild degree of respiratory distress.Head exam was generally normal. There was no scleral icterus or corneal arcus. Mucous membranes were moist. Neck is supple and short and there is significant crowding of posterior pharynx. There is no goiter or neck masses this point. Lung sounds are diminished bilaterally and coarse crackles are appreciated lung bases most on the left lung base. No wheezes.Cardiac exam revealed the PMI to be normally situated and sized. The rhythm was regular and no extrasystoles were noted during several minutes of auscultation. The first and second heart sounds were normal and physiologic splitting of the second heart sound was noted. There were no murmurs, rubs, clicks, or gallops. Abdomen is obese soft nontender. There is no direct tenderness or rebound tensile guarding. No ascites and organs cannot be accurately palpated. Extremities reveal trace edema and there is no cyanosis or clubbing at this point. Skin is dry clean and intact and the incision site at the site of the pain pump insertion is also intact. Neurologically the patient is awake and alert and there is no focal neurological deficits. Psychiatric the patient is slightly anxious. Her mood is appropriate and her affect is appropriate - Labs CBC & Chem 7: 11/05/17 08:45 11/05/17 08:45 Labs: Abnormal Lab Results - Last 24 Hours (Table) 11/04/17 11/04/17 11/04/17 Range/Units 12:23 18:55 20:04 RBC (3.80-5.40) m/uL Hgb (11.4-16.0) gm/dL Hct (34.0-46.0) % MCHC (31.0-37.0) g/dL RDW (11.5-15.5) % Plt Count (150-450) k/uL Carbon Dioxide (22-30) mmol/L BUN (7-17) mg/dL Creatinine (0.52-1.04) mg/dL Glucose (74-99) mg/dL POC Glucose (mg/dL) 132 H 146 H 133 H (75-99) mg/dL Magnesium (1.6-2.3) mg/dL 11/05/17 11/05/17 11/05/17 Range/Units 06:53 08:45 08:45 RBC 3.22 L (3.80-5.40) m/uL Hgb 8.2 L (11.4-16.0) gm/dL Hct 28.1 L (34.0-46.0) % MCHC 29.4 L (31.0-37.0) g/dL RDW 15.9 H (11.5-15.5) % Plt Count 144 L (150-450) k/uL Carbon Dioxide 31 H (22-30) mmol/L BUN 19 H (7-17) mg/dL Creatinine 1.14 H (0.52-1.04) mg/dL Glucose 124 H (74-99) mg/dL POC Glucose (mg/dL) 127 H (75-99) mg/dL Magnesium 1.4 L (1.6-2.3) mg/dL Microbiology - Last 24 Hours (Table) 11/02/17 16:11 Blood Culture - Preliminary Blood No Growth after 48 hours 11/02/17 11:30 Urine Culture - Final Urine,Clean Catch Enterococcus faecium VRE 11/02/17 11:10 Blood Culture - Preliminary Blood No Growth after 48 hours Assessment and Plan Assessment: Assessment 1 acute bilateral pneumonia with secondary acute hypoxic respiratory failure. The patient has increased infiltration perihilar and lower lobes more so on the left compared to the right. Chest x-ray 11/05/2017 reveals chronic changes without acute pulmonary process. 2 acute lactic acidosis secondary to pneumonia and possibly component of intravascular volume depletion, Improved and lactic acid levels have normalized. 3 chest pain, mainly pleuritic on the left probably related to pneumonia. Doubt any acute ischemic coronary event, And a troponin level is down to 0.019. 4 known history of coronary artery disease with previous coronary intervention and stenting and some nonspecific ST segment changes mainly T-wave inversions with limited troponin leak 5 morbid obesity 6 obstructive sleep apnea not on any treatment in terms of CPAP therapy at this point 7 diabetes mellitus 8 chronic renal failure with a component of diabetic nephropathy 9 thyroid cancer with previous thyroidectomy maintained on thyroid hormone replacement 10 hypertension 11 hyperlipidemia 12 left upper extremity swelling at a time of CT angios the chest. There is no evidence of any pulmonary embolism yet the contrast administration was suboptimal due to contrast extravasation 13 questionable liver cirrhosis. The exact etiology is not clear. No signs of portal hypertension based on the recent EGD 14 bipolar disorder/depression 15 chronic anxiety 16 gout 17 small hiatal hernia along with mild gastritis 18 rheumatoid arthritis PLAN The patient was seen and evaluated by Dr. Mcleod. We'll continue with her current antibiotics as recommended per infectious disease. The plan is for possible cardiac catheterization today per cardiology. She is cleared for transfer out of the intensive care unit once a selective care unit bed becomes available. We will increase her activity as tolerated. We'll continue to follow. I, the cosigning physician, have performed a history and physical examination on the patient. Lung sounds are clear. Maintaining good O2 saturations in the 90s on 2 L/m per nasal cannula. I have discussed the assessment and plan of care with my nurse practitioner, Libra Perez. I attest the above documented note as dictated by her. <Wicho Mcleod - Last Filed: 11/05/17 16:43> Objective - Vital Signs Vital signs: Vital Signs Temp 98.2 F 11/05/17 12:00 Pulse 94 11/05/17 15:00 Resp 18 11/05/17 15:00 BP 113/70 11/05/17 13:00 Pulse Ox 94 L 11/05/17 12:00 Intake & Output 11/04/17 11/05/17 11/05/17 18:59 06:59 18:59 Intake Total 1055.332 290 615 Output Total 2110 640 2200 Balance -1054.668 -350 -1585 Weight 157.6 kg 160.1 kg Intake: IV 740 290 365 Levofloxacin 750Mg-D5w 150 Pmx 750 mg In Dextrose/ Water 1 150ml.bag @ 100 mls/hr IVPB ONCE STA Rx#: [id number] Magnesium Sulfate-D5w Pmx 100 200 1 gm In Dextrose/Water 1 100ml.bag @ 100 mls/hr IVPB Q1H [facility] Rx#: [id number] Piperacillin-Tazobactam 3 50 50 50 .375 gm In Dextrose/Water 1 50ml.bag @ 12.5 mls/hr IVPB ONCE STA Rx#: [id number] Sodium Chloride 0.9% 1, 440 240 115 000 ml @ 75 mls/hr IV . [id number] [facility] Rx#:[id number] Intake, IV Titration 315.332 250 Amount Heparin Sod,Pork in 0.45% 165.332 NaCl 25,000 unit In 0.45 % NaCl 1 500ml.bag @ 6.68 UNITS/KG/HR 19.99 mls/hr IV .Q24H [facility] Rx#: [id number] Levofloxacin 750Mg-D5w 150 Pmx 750 mg In Dextrose/ Water 1 150ml.bag @ 100 mls/hr IVPB Q24H [facility] Rx#: [id number] Magnesium Sulfate-D5w Pmx 100 1 gm In Dextrose/Water 1 100ml.bag @ 100 mls/hr IVPB Q1H [facility] Rx#: [id number] Piperacillin-Tazobactam 3 50 100 .375 gm In Dextrose/Water 1 50ml.bag @ 12.5 mls/hr IVPB Q8HR [facility] Rx#: [id number] Output: Urine 2110 640 2200 Other: Voiding Method Indwelling Catheter Bedside Commode Bedside Commode # Bowel Movements 1 - Labs CBC & Chem 7: 11/05/17 08:45 11/05/17 08:45 Labs: Abnormal Lab Results - Last 24 Hours (Table) 11/04/17 11/04/17 11/05/17 Range/Units 18:55 20:04 06:53 RBC (3.80-5.40) m/uL Hgb (11.4-16.0) gm/dL Hct (34.0-46.0) % MCHC (31.0-37.0) g/dL RDW (11.5-15.5) % Plt Count (150-450) k/uL Carbon Dioxide (22-30) mmol/L BUN (7-17) mg/dL Creatinine (0.52-1.04) mg/dL Glucose (74-99) mg/dL POC Glucose (mg/dL) 146 H 133 H 127 H (75-99) mg/dL Magnesium (1.6-2.3) mg/dL 11/05/17 11/05/17 11/05/17 Range/Units 08:45 08:45 12:12 RBC 3.22 L (3.80-5.40) m/uL Hgb 8.2 L (11.4-16.0) gm/dL Hct 28.1 L (34.0-46.0) % MCHC 29.4 L (31.0-37.0) g/dL RDW 15.9 H (11.5-15.5) % Plt Count 144 L (150-450) k/uL Carbon Dioxide 31 H (22-30) mmol/L BUN 19 H (7-17) mg/dL Creatinine 1.14 H (0.52-1.04) mg/dL Glucose 124 H (74-99) mg/dL POC Glucose (mg/dL) 123 H (75-99) mg/dL Magnesium 1.4 L (1.6-2.3) mg/dL Microbiology - Last 24 Hours (Table) 11/02/17 11:10 Blood Culture - Preliminary Blood No Growth after 72 hours 11/02/17 16:11 Blood Culture - Preliminary Blood No Growth after 48 hours 11/02/17 11:30 Urine Culture - Final Urine,Clean Catch Enterococcus faecium VRE Assessment and Plan Assessment: This is a joint evaluation that was done along with a nurse practitioner. The patient is doing very well. She has no major respiratory difficulties. Possible cardiac catheterization in the morning. I attest to the above- mentioned information. Continue antibiotics. Remove the patient out of the intensive care unit. I noted that the patient's urine culture showed VRE. I'm not absolute discharge the patient is truly infected. ID has already seen the patient and patient got placed on daptomycin and addition to combination of Zosyn and Levaquin. We'll continue to follow.
[2017-11-05] MEDS ORDERED: FUROSEMIDE 10 MG/ML 2 ML VIAL IV ONE (11:46)
[2017-11-05 12:13] LABS: Glucose,Whole Blood 123 mg/dL (75-99)
--- NOTE | 2017-11-05 13:26 | P.PN ---
Subjective Principal diagnosis: SOB Still feels tired, had about 5 hours of sleep last night. Objective - Vital Signs Vital signs: Vital Signs Temp 98.2 F 11/05/17 12:00 Pulse 63 11/05/17 12:00 Resp 16 11/05/17 12:00 BP 113/70 11/05/17 12:00 Pulse Ox 94 L 11/05/17 12:00 Intake & Output 11/04/17 11/05/17 11/05/17 18:59 06:59 18:59 Intake Total 1055.332 290 140 Output Total 2110 640 0 Balance -1054.668 -350 140 Weight 157.6 kg 160.1 kg Intake: IV 740 290 40 Levofloxacin 750Mg-D5w 150 Pmx 750 mg In Dextrose/ Water 1 150ml.bag @ 100 mls/hr IVPB ONCE STA Rx#: [id number] Magnesium Sulfate-D5w Pmx 100 1 gm In Dextrose/Water 1 100ml.bag @ 100 mls/hr IVPB Q1H [facility] Rx#: [id number] Piperacillin-Tazobactam 3 50 50 .375 gm In Dextrose/Water 1 50ml.bag @ 12.5 mls/hr IVPB ONCE STA Rx#: [id number] Sodium Chloride 0.9% 1, 440 240 40 000 ml @ 75 mls/hr IV . [id number] [facility] Rx#:[id number] Intake, IV Titration 315.332 100 Amount Heparin Sod,Pork in 0.45% 165.332 NaCl 25,000 unit In 0.45 % NaCl 1 500ml.bag @ 6.68 UNITS/KG/HR 19.99 mls/hr IV .Q24H [facility] Rx#: [id number] Magnesium Sulfate-D5w Pmx 100 1 gm In Dextrose/Water 1 100ml.bag @ 100 mls/hr IVPB Q1H [facility] Rx#: [id number] Piperacillin-Tazobactam 3 50 100 .375 gm In Dextrose/Water 1 50ml.bag @ 12.5 mls/hr IVPB Q8HR [facility] Rx#: [id number] Output: Urine 2110 640 0 Other: Voiding Method Indwelling Catheter Bedside Commode Bedside Commode # Bowel Movements 1 - Exam Constitutional: Morbidly obese, in mild respiratory distress, conversant, pleasant Eyes:Anicteric sclerae, moist conjunctiva, no lid-lag, PERRLA, ENMT: Oropharynx clear, no erythema, exudates Neck: Supple, FROM, no masses, or JVD, No carotid bruits, No thyromegaly Lungs: bilateral expiratory crackles and rhonchi especially at the bases, Clear to percussion, Normal respiratory effort, no accessory muscle use Cardiovascular: Heart regular in rate and rhythm, No murmurs, gallops, or rubs, 1+ pedal edema Abdominal: Soft, obese, Nontender, no guarding, rebound or rigidity, Normoactive bowel sounds, No hepatomegaly, No splenomegaly, No palpable mass Skin: Normal temperature, tone, texture, turgor, no induration, No subcutaneous nodules, No rash, lesions, No ulcers Extremities: No digital cyanosis, No clubbing, Pedal pulses intact and symmetrical, Radial pulses intact and symmetrical, No calf tenderness Psychiatric: Alert and oriented to person, place and time, appropriate affect, intact judgement Neuro: Muscles Strength 5/5 in all 4 extremities, Sensation to light touch grossly present throughout, Cranial nerves II-XII grossly intact, no focal sensory deficits - Labs CBC & Chem 7: 11/05/17 08:45 11/05/17 08:45 Labs: Abnormal Lab Results - Last 24 Hours (Table) 11/04/17 11/04/17 11/05/17 Range/Units 18:55 20:04 06:53 RBC (3.80-5.40) m/uL Hgb (11.4-16.0) gm/dL Hct (34.0-46.0) % MCHC (31.0-37.0) g/dL RDW (11.5-15.5) % Plt Count (150-450) k/uL Carbon Dioxide (22-30) mmol/L BUN (7-17) mg/dL Creatinine (0.52-1.04) mg/dL Glucose (74-99) mg/dL POC Glucose (mg/dL) 146 H 133 H 127 H (75-99) mg/dL Magnesium (1.6-2.3) mg/dL 11/05/17 11/05/17 11/05/17 Range/Units 08:45 08:45 12:12 RBC 3.22 L (3.80-5.40) m/uL Hgb 8.2 L (11.4-16.0) gm/dL Hct 28.1 L (34.0-46.0) % MCHC 29.4 L (31.0-37.0) g/dL RDW 15.9 H (11.5-15.5) % Plt Count 144 L (150-450) k/uL Carbon Dioxide 31 H (22-30) mmol/L BUN 19 H (7-17) mg/dL Creatinine 1.14 H (0.52-1.04) mg/dL Glucose 124 H (74-99) mg/dL POC Glucose (mg/dL) 123 H (75-99) mg/dL Magnesium 1.4 L (1.6-2.3) mg/dL Microbiology - Last 24 Hours (Table) 11/02/17 11:10 Blood Culture - Preliminary Blood No Growth after 72 hours 11/02/17 16:11 Blood Culture - Preliminary Blood No Growth after 48 hours 11/02/17 11:30 Urine Culture - Final Urine,Clean Catch Enterococcus faecium VRE Assessment and Plan Plan: 1- Acute severe sepsis/Acute community-acquired pneumonia/Acute hypoxic respiratory failure/Acute exacerbation of diastolic CHF: D/C IV fluids Will give one dose of lasix 20mg IV as patient is edematous and her BNP was high on admission. Continue zosyn, and Levaquin, daptomycin Duonebs. Start lasix 20mg IV bid. O2 supplement to keep sats >93% Labs reviewed. 2- Acute non-ST elevation myocardial infarction: IV heparin d/eduardo Continue statin, aspirin and lopressor. Cath today Echo done--normal EF. 3- Acute VRE UTI: Consult ID Started on daptomycin on 11/04. 3- COPD, Diabetes Mellitus type 2, Hyperlipidemia, Hypertension, Liver cirrhosis , Sleep Apnea/CPAP/BIPAP Resume home meds. SSI with BS checks every 6 hours. Duonebs PRN 5- Hypothyroidism: Overtherapeutic on her hormone replacement Hold thyroid replacement as TSH is low. 4- DVT prophylaxis: Lovenox s/q
[2017-11-05] MEDS: MAGNESIUM SULFATE-D5W PMX 1 GM in DEXTROSE/WATER 1 100ML.BAG IVPB SCH ×2 (13:47→14:32)
[2017-11-05] MEDS: ONDANSETRON 4 MG/2 ML VIAL IVP PRN (13:47)
[2017-11-05] MEDS: LEVOFLOXACIN 750MG-D5W PMX 750 MG in DEXTROSE/WATER 1 150ML.BAG IVPB SCH (14:32)
[2017-11-05] MEDS: PROMETHAZINE INJ 6.25 MG in SODIUM CHLORIDE 0.9% 50 ML IVPB PRN (15:51)
--- NOTE | 2017-11-05 17:35 | P.PN ---
Subjective Progress Note Date: 11/05/17 Principal diagnosis: Chest discomfort/coronary artery disease This is a pleasant 51-year-old female patient with a past medical history significant for coronary artery disease and status post post coronary artery stenting with unknown details at this point where the stenting was performed at [place] about 6 years ago, the patient also is known to have diabetes , hypertension, dyslipidemia, as well as COPD, presented to the emergency room complaining of shortness of breath. She was in her usual state of health that about 3 days ago when she started experiencing fever and chills associated with shortness of breath as well as cough productive of sputum. The patient also describes chest discomfort as a chest tightness. The patient was diagnosed with COPD exacerbation as well as pneumonia and currently she is receiving bronchodilators as well as antibiotic. We get involved in the care of the patient because the first set of cardiac enzyme came in to be slightly abnormal and the second set came in to be normal. But more importantly the EKG upon presenting to the hospital showed sinus rhythm without any ischemic ST or T-wave abnormalities. The subsequent EKG showed T wave inversion throughout the chest. Quite concerning for ischemia. The third EKG showed even more prominent T-wave inversion and ST changes as well as. I'll follow-up with the patient today on 11/15/2017, she denies having any chest pain or discomfort. She was having chest discomfort yesterday. The hemoglobin improved to 8.2. She still have exertional dyspnea and orthopnea and also she does have bilateral lower extremities nonpitting edema. I had a long discussion with the patient regarding the next step. I do feel that the patient need to be ruled out for severe underlying CAD once she is out of the acute respiratory failure and once the hemoglobin is better. I am going to continue the current medical treatment with aspirin and statin and add Imdur. Objective - Vital Signs Vital signs: Vital Signs Temp 98.2 F 11/05/17 12:00 Pulse 62 11/05/17 16:00 Resp 16 11/05/17 16:00 BP 142/89 11/05/17 16:00 Pulse Ox 94 L 11/05/17 16:00 Intake & Output 11/04/17 11/05/17 11/05/17 18:59 06:59 18:59 Intake Total 1055.332 290 615 Output Total 2110 640 2200 Balance -1054.668 -350 -1585 Weight 157.6 kg 160.1 kg Intake: IV 740 290 365 Levofloxacin 750Mg-D5w 150 Pmx 750 mg In Dextrose/ Water 1 150ml.bag @ 100 mls/hr IVPB [facility]CE [facility] Rx#: [id number] Magnesium Sulfate-D5w Pmx 100 200 1 gm In Dextrose/Water 1 100ml.bag @ 100 mls/hr IVPB Q1H [facility] Rx#: [id number] Piperacillin-Tazobactam 3 50 50 50 .375 gm In Dextrose/Water 1 50ml.bag @ 12.5 mls/hr IVPB ONCE [facility] Rx#: [id number] Sodium Chloride 0.9% 1, 440 240 115 000 ml @ 75 mls/hr IV . [id number] [facility] Rx#:[id number] Intake, IV Titration 315.332 250 Amount Heparin Sod,Pork in 0.45% 165.332 NaCl 25,000 unit In 0.45 % NaCl 1 500ml.bag @ 6.68 UNITS/KG/HR 19.99 mls/hr IV .Q24H [facility] Rx#: [id number] Levofloxacin 750Mg-D5w 150 Pmx 750 mg In Dextrose/ Water 1 150ml.bag @ 100 mls/hr IVPB Q24H [facility] Rx#: [id number] Magnesium Sulfate-D5w Pmx 100 1 gm In Dextrose/Water 1 100ml.bag @ 100 mls/hr IVPB Q1H [facility] Rx#: [id number] Piperacillin-Tazobactam 3 50 100 .375 gm In Dextrose/Water 1 50ml.bag @ 12.5 mls/hr IVPB Q8HR [facility] Rx#: [id number] Output: Urine 2110 640 2200 Other: Voiding Method Indwelling Catheter Bedside Commode Bedside Commode # Bowel Movements 1 - Constitutional General appearance: Present: no acute distress - Respiratory Respiratory: bilateral: wheezing - Cardiovascular Rhythm: regular Heart sounds: normal: S1, S2 - Labs CBC & Chem 7: 11/05/17 08:45 11/05/17 08:45 Labs: Abnormal Lab Results - Last 24 Hours (Table) 11/04/17 11/04/17 11/05/17 Range/Units 18:55 20:04 06:53 RBC (3.80-5.40) m/uL Hgb (11.4-16.0) gm/dL Hct (34.0-46.0) % MCHC (31.0-37.0) g/dL RDW (11.5-15.5) % Plt Count (150-450) k/uL Carbon Dioxide (22-30) mmol/L BUN (7-17) mg/dL Creatinine (0.52-1.04) mg/dL Glucose (74-99) mg/dL POC Glucose (mg/dL) 146 H 133 H 127 H (75-99) mg/dL Magnesium (1.6-2.3) mg/dL 11/05/17 11/05/17 11/05/17 Range/Units 08:45 08:45 12:12 RBC 3.22 L (3.80-5.40) m/uL Hgb 8.2 L (11.4-16.0) gm/dL Hct 28.1 L (34.0-46.0) % MCHC 29.4 L (31.0-37.0) g/dL RDW 15.9 H (11.5-15.5) % Plt Count 144 L (150-450) k/uL Carbon Dioxide 31 H (22-30) mmol/L BUN 19 H (7-17) mg/dL Creatinine 1.14 H (0.52-1.04) mg/dL Glucose 124 H (74-99) mg/dL POC Glucose (mg/dL) 123 H (75-99) mg/dL Magnesium 1.4 L (1.6-2.3) mg/dL Microbiology - Last 24 Hours (Table) 11/02/17 11:10 Blood Culture - Preliminary Blood No Growth after 72 hours 11/02/17 16:11 Blood Culture - Preliminary Blood No Growth after 48 hours 11/02/17 11:30 Urine Culture - Final Urine,Clean Catch Enterococcus faecium VRE Assessment and Plan Assessment: Assessment #1 acute on chronic respiratory failure #2 acute exacerbation of COPD #3 pneumonia #4 acute non-ST elevation myocardial infarction #5 known CAD and prior stenting #6 diabetes type 2 #7 multiple comorbid conditions Plan #1 continue the current medical treatment with aspirin, beta dru, and statin. Add Imdur #2 the echocardiogram revealed normal LV function without any significant valvular abnormalities #3 the third sets of serial cardiac enzymes came in to be normal. #4 rule out severe underlying CAD probably as an outpatient. We'll continue following up with her I thank you for allowing us participate in her care
[2017-11-05 18:19] LABS: Glucose,Whole Blood 108 mg/dL (75-99)
[2017-11-05] MEDS: LURASIDONE 40 MG TAB PO SCH (18:24)
[2017-11-05] MEDS: ZOLPIDEM 5 MG TAB PO SCH (19:11)
[2017-11-05] MEDS: LORazepam 1 MG TAB PO PRN ×2 (19:11→22:31)
[2017-11-05 20:08] LABS: Glucose,Whole Blood 137 mg/dL (75-99)
[2017-11-05] MEDS: FAMOTIDINE 20 MG TAB PO SCH (20:46)
[2017-11-05] MEDS: ATORVASTATIN 20 MG TAB PO SCH (20:47)
[2017-11-05] MEDS: FUROSEMIDE 10 MG/ML 2 ML VIAL IV SCH (20:47)
[2017-11-06] MEDS: PIPERACILLIN-TAZOBACTAM 3.375 GM in DEXTROSE/WATER 1 50ML.BAG IVPB SCH ×3 (00:18→15:50)
[2017-11-06 01:22] LABS: Appearance,Urine Clear (Clear); Bilirubin,Urine Negative (Negative); Blood,Urine Negative (Negative); Color,Urine Light Yellow; Glucose,Urine (UA) Negative (Negative); Ketones,Urine Negative (Negative); Leukocyte Esterase,Urine Moderate (Negative); Mucus,Urine Rare /hpf; Nitrite,Urine Negative (Negative); PH, Urine 6.5 (5.0-8.0); Protein,Urine Negative (Negative); RBC,Urine 3 /hpf (0-5); Specific Gravity,Urine 1.013 (1.001-1.035); Squamous Epithelial Cell,Urine <1 /hpf (0-4); Urobilinogen,Urine <2.0 mg/dL (<2.0); WBC,Urine 27 /hpf (0-5)
[2017-11-06 06:11] LABS: Anisocytosis Slight; Basophils % (A) 0 %; Eosinophils # (A) 0.3 k/uL (0-0.7); Eosinophils % (A) 8 %; HGB 8.3 gm/dL (11.4-16.0); Hypochromasia Marked; Lymphocytes # (A) 1.5 k/uL (1.0-4.8); Lymphocytes % (A) 39 %; MCHC 29.6 g/dL (31.0-37.0); MCV 84.3 fL (80.0-100.0); Mean Platelet Volume 7.5; Monocytes # (A) 0.3 k/uL (0-1.0); Monocytes % (A) 8 %; Neutrophils # (A) 1.7 k/uL (1.3-7.7); Neutrophils % (A) 44 %; Platelet Count 133 k/uL (150-450); Poikilocytosis Slight; RBC 3.32 m/uL (3.80-5.40); RDW 16.5 % (11.5-15.5); WBC 3.9 k/uL (3.8-10.6)
[2017-11-06 06:28] LABS: Calcium 9.4 mg/dL (8.4-10.2); Magnesium 1.4 mg/dL (1.6-2.3); Phosphorus 4.4 mg/dL (2.5-4.5); Potassium 4.9 mmol/L (3.5-5.1)
[2017-11-06 07:01] LABS: Glucose,Whole Blood 157 mg/dL (75-99)
[2017-11-06] MEDS: SODIUM CHLORIDE 0.9% 1,000 ML IV SCH ×2 (07:06→15:48)
[2017-11-06] MEDS: MAGNESIUM SULFATE-D5W PMX 1 GM in DEXTROSE/WATER 1 100ML.BAG IVPB SCH ×3 (07:06→09:46)
--- NOTE | 2017-11-06 07:07 | XR ---
EXAMINATION TYPE: XR chest 1V DATE OF EXAM: 11/06/2017 HISTORY: Pneumonia. REFERENCE: Previous study dated 11/05/2017. FINDINGS: The heart is mildly prominent. The lungs are clear. Heart size is upper limits of normal. T here is blunting of the left CP angle. This may represent some atelectasis or a small effusion. Incidental note is made of a left internal jugular catheter. Its tip is in the superior vena cava. IMPRESSION: 1. BORDERLINE CARDIOMEGALY. 2. ATELECTASIS VERSUS SMALL LEFT EFFUSION.
[2017-11-06 07:20] LABS: Glucose,Whole Blood 156 mg/dL (75-99)
[2017-11-06] MEDS: INSULIN ASPART 100 UNIT/ML 1 ML 10 ML VIAL SQ SCH ×4 (07:32→20:19)
[2017-11-06] MEDS: ALBUTEROL NEBULIZED 2.5 MG/3 ML INHALATION SCH ×4 (07:54→19:36)
[2017-11-06] MEDS: VENLAFAXINE HCL ER 37.5 MG CAP PO SCH (08:28)
[2017-11-06] MEDS: DIVALPROEX 500 MG TABLET.DR PO SCH ×3 (08:28→22:09)
[2017-11-06] MEDS: FUROSEMIDE 10 MG/ML 2 ML VIAL IV SCH (08:29)
[2017-11-06] MEDS: ENOXAPARIN 40 MG/0.4 ML SYRINGE SQ SCH (08:29)
[2017-11-06] MEDS: OXYBUTYNIN XL 5 MG TAB.ER.24 PO SCH (08:29)
[2017-11-06] MEDS: RIFAXIMIN 550 MG TABLET PO SCH ×2 (08:29→19:41)
[2017-11-06] MEDS: ATORVASTATIN 20 MG TAB PO SCH (08:29)
[2017-11-06] MEDS: ISOSORBIDE MONONITRATE ER 30 MG TAB.ER.24H PO SCH (08:29)
[2017-11-06] MEDS: METOPROLOL TARTRATE 12.5 MG TAB PO SCH (08:29)
[2017-11-06] MEDS: ASPIRIN 325 MG TAB PO SCH (08:30)
[2017-11-06] MEDS ORDERED: METOPROLOL TARTRATE 12.5 MG TAB PO ONE (10:15)
--- NOTE | 2017-11-06 10:23 | PN ---
PROGRESS NOTE Mrs. Martinez is 51-year-old female with a known history of coronary artery disease, who presented with symptoms of progressive dyspnea and exacerbation of chronic obstructive pulmonary disease. She continues to have some dyspnea this morning, but she has no chest discomfort. She denies any dizziness or palpitations. On the monitor she is in sinus mechanism without any evidence of tachy or zoraida arrhythmia. She had an echocardiogram during this admission and that revealed a normal ejection fraction with no significant valvular disease. She continues to be at this time on aspirin once a day, Lipitor 20 mg daily, Lasix 20 mg IV q.12 hours, isosorbide mononitrate 30 mg daily, metoprolol tartrate 12.5 mg twice a day in addition to her antibiotics. PHYSICAL EXAMINATION: Blood pressure 100/60 with a heart in the 60s. LUNGS: Clear. Heart regular rate and rhythm. S1, S2. No S3, no rub with a systolic murmur. ABDOMEN: Soft, nontender. Obese. EXTREMITIES: No significant edema. LAB DATA: BUN and creatinine 19 and 1.16, hemoglobin of 8.3, which compared to yesterday it has been stable. IMPRESSION: 1. Pneumonia with exacerbation of chronic obstructive pulmonary disease. 2. History of coronary artery disease. 3. History of diabetes. 4. Hyperlipidemia. RECOMMENDATION: From the cardiac standpoint, I will switch her to oral diuretics. Continue the rest of her medical regimen. I would expect she should be able to be transferred to telemetry floor and her activity level will be increased gradually. She will require further cardiac workup when she is stabilized from the pulmonary standpoint. MMODL / IJN: [id number] /
--- NOTE | 2017-11-06 10:30 | P.PN ---
Subjective Progress Note Date: 11/06/17 51-year-old female patient who was hospitalized this afternoon because of generalized weakness, increased shortness of breath, cough and chest congestion and pleuritic left-sided chest pain. The patient is morbidly obese. She has multiple medical problems and comorbidities including history of COPD, obstructive sleep apnea that has not been treated for the time being in addition to coronary artery disease with previous coronary intervention and stenting. In the emergency department, the patient was found to be hypoxic and she was placed on 6 L of oxygen nasal cannula and his saturations up to 90%. She was tachycardic. Her initial lactic acid level was at 3.7 and subsequent level came up to 4.7. The patient had a CAT scan of the chest is alive zinc a CT angios protocol. The contrast to my understanding CT into the subcu venous distention the left upper extremity. The lung windows showed patchy perihilar and basilar pulmonary infiltrate left more than right lung with small pleural effusion. Abdomen grams are noted in the left lower lobe. The patient was found to have mild cardiomegaly. These changes reflect essentially pneumonia. Mediastinum showed no evidence of any masses or lymph nodes. There was calcified hilar and mediastinal lymph nodes seen. The pulmonary arteries were suboptimally opacified due to extravasation of contrast. The patient was started on Levaquin. The patient got moved to the selective unit and following that the patient got moved to the intensive care unit. No IV fluids was given due to lack of IV lines. Based on that a triple lumen catheter was inserted in the left IJ in the intensive care units. The patient was started on fluid resuscitation in addition to broad-spectrum antibiotics utilizing a combination of Zosyn, Levaquin and vancomycin. She has had a remote exposure to MRSA infection in her left ankle. No previous history of MRSA pneumonia. The patient's first set of troponin was at 0.038. She has T-wave inversions on her EKG along with sinus tachycardia and left axis deviation. There are some nonspecific ST segment changes also. Urinalysis was also abnormal with increased white cell count at 124. Influenza screen is been negative. Blood cultures still pending. Apparently the patient has not been eating or drinking over the past few days. She has had increased emesis and she threw up a few times at home. She was in [place] for visitation and she drove back recently. Following that she was seen by Dr. Caldera and she underwent a pain pump insertion for chronic back pain. The site of pain pump insertion and incision site is dry clean and intact at this point. On 2017 the patient is being seen in follow-up. The patient is awake and alert. Her shortness of breath is improved over the past 24 hours. The patient was treated for a pneumonia with a combination of triple antibiotics including dose of Levaquin and vancomycin. Today's chest x-ray shows no significant abnormalities. The patient got resuscitated aggressively with IV fluids. She received more than 3 L of IV fluid in her lactic acid level normalized. She is producing adequate amount of urine output. EKG still showing some T-wave inversions and the troponin levels came down to 0.019. Cardiology intends to perform a cardiac catheterization this patient later stage based on her underlying coronary artery disease. The blood cultures negative thus far. Urine cultures negative. White cell count is down to 6.4. The patient remains on IV heparin. No pleurisy. No chest pain. No change in mental status. No other complaints otherwise. Her CVP is up to 10. The echocardiogram was done and the patient has a preserved LV function with an ejection fraction of 55-60%. No other valvular abnormalities. The patient was seen again today 11/04/2017 in follow-up in the intensive care unit. She is awake and alert in no acute distress. She denies any worsening shortness of breath, cough or congestion. She is maintaining good O2 saturations in the 90s on 2 L/m per nasal cannula. She has been afebrile. No tachypnea, no tachycardia. Hemodynamically stable. Urine was positive for group D enterococcus. Blood cultures reveal no growth. Leukocytosis. Hemoglobin 8.0. Creatinine 1.05. She remains on Zosyn and Levaquin. The patient was seen again today 11/05/2017 as a telemetry overflow in the intensive care unit. She remains awake and alert in no acute distress. She denies any worsening shortness of breath, cough or congestion. She denies any chest pain, palpitations lightheadedness or dizziness. She has been afebrile. Maintaining good O2 saturations in the high 90s on 2 L. Hemodynamically stable. Her urine is positive for enterococcus fascia and VRE. She has been seen by infectious disease. She is currently on daptomycin, Zosyn and Levaquin. No leukocytosis. Hemoglobin 8.2. Creatinine 1.14. On 11/06/2017 the patient is doing well. No specific complaints. It was decided to postpone the cardiac catheterization today later stage. The patient' s family of any chest pain. No respiratory distress. No cough or sputum production. As mentioned earlier, the patient was started on daptomycin regarding a VRE in the urine. She is also on a combination of Zosyn and Levaquin. She is a selective overflow and she'll be moved out of the intensive care units. She is on normal saline at the rate of 20 mL an hour. There has been no significant events overnight otherwise. Objective - Vital Signs Vital signs: Vital Signs Temp 97.6 F 11/06/17 08:00 Pulse 63 11/06/17 08:00 Resp 20 11/06/17 08:00 BP 100/64 11/06/17 08:00 Pulse Ox 97 11/06/17 08:00 Intake & Output 11/05/17 11/06/17 11/06/17 18:59 06:59 18:59 Intake Total 615 1125 250 Output Total 3400 625 900 Balance -2785 500 -650 Weight 156.6 kg Intake: IV 365 1125 250 Magnesium Sulfate-D5w Pmx 200 1 gm In Dextrose/Water 1 100ml.bag @ 100 mls/hr IVPB Q1H [facility] Rx#: [id number] Magnesium Sulfate-D5w Pmx 200 1 gm In Dextrose/Water 1 100ml.bag @ 100 mls/hr IVPB Q1H [facility] Rx#: [id number] Piperacillin-Tazobactam 3 50 .375 gm In Dextrose/Water 1 50ml.bag @ 12.5 mls/hr IVPB ONCE [facility] Rx#: [id number] Piperacillin-Tazobactam 3 50 .375 gm In Dextrose/Water 1 50ml.bag @ 12.5 mls/hr IVPB Q8HR [facility] Rx#: [id number] Sodium Chloride 0.9% 1, 115 1125 000 ml @ 75 mls/hr IV . [id number] [facility] Rx#:[id number] Intake, IV Titration 250 Amount Levofloxacin 750Mg-D5w 150 Pmx 750 mg In Dextrose/ Water 1 150ml.bag @ 100 mls/hr IVPB Q24H [facility] Rx#: [id number] Piperacillin-Tazobactam 3 100 .375 gm In Dextrose/Water 1 50ml.bag @ 12.5 mls/hr IVPB Q8HR [facility] Rx#: [id number] Output: Urine 3400 625 900 Other: Voiding Method Bedside Commode Bedside Commode Bedside Commode # Bowel Movements 1 - Exam Morbidly obese, comfortable a mild degree of respiratory distress.Head exam was generally normal. There was no scleral icterus or corneal arcus. Mucous membranes were moist. Neck is supple and short and there is significant crowding of posterior pharynx. There is no goiter or neck masses this point. Lung sounds are diminished bilaterally and coarse crackles are appreciated lung bases most on the left lung base. No wheezes.Cardiac exam revealed the PMI to be normally situated and sized. The rhythm was regular and no extrasystoles were noted during several minutes of auscultation. The first and second heart sounds were normal and physiologic splitting of the second heart sound was noted. There were no murmurs, rubs, clicks, or gallops. Abdomen is obese soft nontender. There is no direct tenderness or rebound tensile guarding. No ascites and organs cannot be accurately palpated. Extremities reveal trace edema and there is no cyanosis or clubbing at this point. Skin is dry clean and intact and the incision site at the site of the pain pump insertion is also intact. Neurologically the patient is awake and alert and there is no focal neurological deficits. Psychiatric the patient is slightly anxious. Her mood is appropriate and her affect is appropriate - Labs CBC & Chem 7: 11/06/17 06:05 11/06/17 06:05 Labs: Abnormal Lab Results - Last 24 Hours (Table) 11/05/17 11/05/17 11/05/17 Range/Units 12:12 17:23 20:07 RBC (3.80-5.40) m/uL Hgb (11.4-16.0) gm/dL Hct (34.0-46.0) % MCHC (31.0-37.0) g/dL RDW (11.5-15.5) % Plt Count (150-450) k/uL Carbon Dioxide (22-30) mmol/L BUN (7-17) mg/dL Creatinine (0.52-1.04) mg/dL Glucose (74-99) mg/dL POC Glucose (mg/dL) 123 H 108 H 137 H (75-99) mg/dL Magnesium (1.6-2.3) mg/dL Ur Leukocyte Esterase (Negative) Urine WBC (0-5) /hpf Urine Mucus (None) /hpf 11/05/17 11/06/17 11/06/17 Range/Units 22:15 06:05 06:05 RBC 3.32 L (3.80-5.40) m/uL Hgb 8.3 L (11.4-16.0) gm/dL Hct 28.0 L (34.0-46.0) % MCHC 29.6 L (31.0-37.0) g/dL RDW 16.5 H (11.5-15.5) % Plt Count 133 L (150-450) k/uL Carbon Dioxide 33 H (22-30) mmol/L BUN 19 H (7-17) mg/dL Creatinine 1.16 H (0.52-1.04) mg/dL Glucose 146 H (74-99) mg/dL POC Glucose (mg/dL) (75-99) mg/dL Magnesium 1.4 L (1.6-2.3) mg/dL Ur Leukocyte Esterase Moderate H (Negative) Urine WBC 27 H (0-5) /hpf Urine Mucus Rare H (None) /hpf 11/06/17 11/06/17 Range/Units 06:59 07:18 RBC (3.80-5.40) m/uL Hgb (11.4-16.0) gm/dL Hct (34.0-46.0) % MCHC (31.0-37.0) g/dL RDW (11.5-15.5) % Plt Count (150-450) k/uL Carbon Dioxide (22-30) mmol/L BUN (7-17) mg/dL Creatinine (0.52-1.04) mg/dL Glucose (74-99) mg/dL POC Glucose (mg/dL) 157 H 156 H (75-99) mg/dL Magnesium (1.6-2.3) mg/dL Ur Leukocyte Esterase (Negative) Urine WBC (0-5) /hpf Urine Mucus (None) /hpf Microbiology - Last 24 Hours (Table) 01/02/18 16:11 Blood Culture - Preliminary Blood No Growth after 72 hours 11/02/17 11:10 Blood Culture - Preliminary Blood No Growth after 72 hours Assessment and Plan Plan: Assessment 1 acute bilateral pneumonia with secondary acute hypoxic respiratory failure. The patient has increased infiltration perihilar and lower lobes more so on the left compared to the right. Clinically the patient has recovered on subsequent chest x-rays have shown no significant pulmonary infiltration. The patient has no significant respiratory distress at this point. 2 acute lactic acidosis secondary to pneumonia and possibly component of intravascular volume depletion, Improved and lactic acid levels have normalized. 3 chest pain, mainly pleuritic on the left probably related to pneumonia. Doubt any acute ischemic coronary event, And a troponin level is down to 0.019. 4 known history of coronary artery disease with previous coronary intervention and stenting and some nonspecific ST segment changes mainly T-wave inversions with limited troponin leak 5 morbid obesity 6 obstructive sleep apnea not on any treatment in terms of CPAP therapy at this point 7 diabetes mellitus 8 chronic renal failure with a component of diabetic nephropathy 9 thyroid cancer with previous thyroidectomy maintained on thyroid hormone replacement 10 hypertension 11 hyperlipidemia 12 left upper extremity swelling at a time of CT angios the chest. There is no evidence of any pulmonary embolism yet the contrast administration was suboptimal due to contrast extravasation 13 questionable liver cirrhosis. The exact etiology is not clear. No signs of portal hypertension based on the recent EGD 14 bipolar disorder/depression 15 chronic anxiety 16 gout 17 small hiatal hernia along with mild gastritis 18 rheumatoid arthritis 19 VRE urinary tract infection currently on daptomycin Plan Transfer this patient to a medical floor. Continue same antibiotic coverage. Follow-up with ID in regards to recommendations for outpatient antibiotic treatment. No cardiac catheterization is and for now and this can be done later stage on outpatient basis. Condition is stable.
[2017-11-06 12:26] LABS: Glucose,Whole Blood 142 mg/dL (75-99)
[2017-11-06] MEDS: NYSTATIN 100,000UNIT/GM CREAM 30 GM TUBE TOPICAL SCH ×2 (12:33→19:41)
[2017-11-06] MEDS: ONDANSETRON 4 MG/2 ML VIAL IVP PRN ×2 (14:06→22:44)
[2017-11-06] MEDS ORDERED: MAGNESIUM SULFATE-D5W PMX 1 GM in DEXTROSE/WATER 1 100ML.BAG IVPB SCH (15:45)
[2017-11-06] MEDS: LEVOFLOXACIN 750 MG TAB PO SCH (15:47)
--- NOTE | 2017-11-06 15:51 | P.PN ---
Subjective Progress Note Date: 11/06/17 Principal diagnosis: SOB Patient is still feeling tired. Breathing is okay. She was just having a walk around [place] when I was in to see her. Objective - Vital Signs Vital signs: Vital Signs Temp 98.3 F 11/06/17 12:00 Pulse 65 11/06/17 12:00 Resp 15 11/06/17 12:00 BP 92/55 11/06/17 12:00 Pulse Ox 95 11/06/17 12:00 Intake & Output 11/05/17 11/06/17 11/06/17 18:59 06:59 18:59 Intake Total 615 1125 250 Output Total 3400 625 1200 Balance -2785 500 -950 Weight 156.6 kg Intake: IV 365 1125 250 Magnesium Sulfate-D5w Pmx 200 1 gm In Dextrose/Water 1 100ml.bag @ 100 mls/hr IVPB Q1H [facility] Rx#: [id number] Magnesium Sulfate-D5w Pmx 200 1 gm In Dextrose/Water 1 100ml.bag @ 100 mls/hr IVPB Q1H [facility] Rx#: [id number] Piperacillin-Tazobactam 3 50 .375 gm In Dextrose/Water 1 50ml.bag @ 12.5 mls/hr IVPB ONCE STA Rx#: [id number] Piperacillin-Tazobactam 3 50 .375 gm In Dextrose/Water 1 50ml.bag @ 12.5 mls/hr IVPB Q8HR [facility] Rx#: [id number] Sodium Chloride 0.9% 1, 115 1125 000 ml @ 75 mls/hr IV . [id number] [facility] Rx#:[id number] Intake, IV Titration 250 Amount Levofloxacin 750Mg-D5w 150 Pmx 750 mg In Dextrose/ Water 1 150ml.bag @ 100 mls/hr IVPB Q24H [facility] Rx#: [id number] Piperacillin-Tazobactam 3 100 .375 gm In Dextrose/Water 1 50ml.bag @ 12.5 mls/hr IVPB Q8HR [facility] Rx#: [id number] Output: Urine 3400 625 1200 Other: Voiding Method Bedside Commode Bedside Commode Bedside Commode # Bowel Movements 1 - Exam Constitutional: Morbidly obese, in mild respiratory distress, conversant, pleasant Eyes:Anicteric sclerae, moist conjunctiva, no lid-lag, PERRLA, ENMT: Oropharynx clear, no erythema, exudates Neck: Supple, FROM, no masses, or JVD, No carotid bruits, No thyromegaly Lungs: bilateral expiratory crackles and rhonchi especially at the bases, Clear to percussion, Normal respiratory effort, no accessory muscle use Cardiovascular: Heart regular in rate and rhythm, No murmurs, gallops, or rubs, 1+ pedal edema Abdominal: Soft, obese, Nontender, no guarding, rebound or rigidity, Normoactive bowel sounds, No hepatomegaly, No splenomegaly, No palpable mass Skin: Normal temperature, tone, texture, turgor, no induration, No subcutaneous nodules, No rash, lesions, No ulcers Extremities: No digital cyanosis, No clubbing, Pedal pulses intact and symmetrical, Radial pulses intact and symmetrical, No calf tenderness Psychiatric: Alert and oriented to person, place and time, appropriate affect, intact judgement Neuro: Muscles Strength 5/5 in all 4 extremities, Sensation to light touch grossly present throughout, Cranial nerves II-XII grossly intact, no focal sensory deficits - Labs CBC & Chem 7: 11/06/17 06:05 11/06/17 06:05 Labs: Abnormal Lab Results - Last 24 Hours (Table) 11/05/17 11/05/17 11/05/17 Range/Units 17:23 20:07 22:15 RBC (3.80-5.40) m/uL Hgb (11.4-16.0) gm/dL Hct (34.0-46.0) % MCHC (31.0-37.0) g/dL RDW (11.5-15.5) % Plt Count (150-450) k/uL Carbon Dioxide (22-30) mmol/L BUN (7-17) mg/dL Creatinine (0.52-1.04) mg/dL Glucose (74-99) mg/dL POC Glucose (mg/dL) 108 H 137 H (75-99) mg/dL Magnesium (1.6-2.3) mg/dL Ur Leukocyte Esterase Moderate H (Negative) Urine WBC 27 H (0-5) /hpf Urine Mucus Rare H (None) /hpf 11/06/17 11/06/17 11/06/17 Range/Units 06:05 06:05 06:59 RBC 3.32 L (3.80-5.40) m/uL Hgb 8.3 L (11.4-16.0) gm/dL Hct 28.0 L (34.0-46.0) % MCHC 29.6 L (31.0-37.0) g/dL RDW 16.5 H (11.5-15.5) % Plt Count 133 L (150-450) k/uL Carbon Dioxide 33 H (22-30) mmol/L BUN 19 H (7-17) mg/dL Creatinine 1.16 H (0.52-1.04) mg/dL Glucose 146 H (74-99) mg/dL POC Glucose (mg/dL) 157 H (75-99) mg/dL Magnesium 1.4 L (1.6-2.3) mg/dL Ur Leukocyte Esterase (Negative) Urine WBC (0-5) /hpf Urine Mucus (None) /hpf 11/06/17 11/06/17 Range/Units 07:18 12:24 RBC (3.80-5.40) m/uL Hgb (11.4-16.0) gm/dL Hct (34.0-46.0) % MCHC (31.0-37.0) g/dL RDW (11.5-15.5) % Plt Count (150-450) k/uL Carbon Dioxide (22-30) mmol/L BUN (7-17) mg/dL Creatinine (0.52-1.04) mg/dL Glucose (74-99) mg/dL POC Glucose (mg/dL) 156 H 142 H (75-99) mg/dL Magnesium (1.6-2.3) mg/dL Ur Leukocyte Esterase (Negative) Urine WBC (0-5) /hpf Urine Mucus (None) /hpf Microbiology - Last 24 Hours (Table) 11/02/17 11:10 Blood Culture - Preliminary Blood No Growth after 96 hours 11/05/17 22:15 Urine Culture - Preliminary Urine,Clean Catch 11/02/17 16:11 Blood Culture - Preliminary Blood No Growth after 72 hours Assessment and Plan Plan: 1- Acute severe sepsis/Acute community-acquired pneumonia/Acute hypoxic respiratory failure/Acute exacerbation of diastolic CHF: Continue lasix 20mg daily Continue zosyn, and Levaquin, daptomycin Duonebs. O2 supplement to keep sats >93% Labs reviewed, recheck in a.m. 2- Acute non-ST elevation myocardial infarction: IV heparin d/eduardo Continue statin, aspirin and lopressor. Cath today Echo done--normal EF. 3- Acute VRE UTI: ID following Started on daptomycin on 11/04. 3- COPD, Diabetes Mellitus type 2, Hyperlipidemia, Hypertension, Liver cirrhosis , Sleep Apnea/CPAP/BIPAP Resume home meds. SSI with BS checks every 6 hours. Dufrantz PRN 5- Hypothyroidism: Hormone replacement was held due to TSH Restart thyroid replacement today at the lower dose 6-Hypomagnesimia: Replace Start oral mg oxide 400 mg bid as she has been low through out the admission 7- DVT prophylaxis: Lovenox s/q
[2017-11-06 17:24] LABS: Glucose,Whole Blood 148 mg/dL (75-99)
[2017-11-06] MEDS: LURASIDONE 40 MG TAB PO SCH (17:31)
[2017-11-06] MEDS: LEVOTHYROXINE 125 MCG TAB PO SCH (17:32)
[2017-11-06] MEDS: LORazepam 1 MG TAB PO PRN (18:46)
[2017-11-06] MEDS: FAMOTIDINE 20 MG TAB PO SCH (19:40)
[2017-11-06] MEDS: ATORVASTATIN 40 MG TAB PO SCH (19:41)
[2017-11-06] MEDS: METOPROLOL TARTRATE 25 MG TAB PO SCH (19:41)
[2017-11-06] MEDS: MAGNESIUM OXIDE 400 MG TAB PO SCH (19:41)
[2017-11-06] MEDS: ZOLPIDEM 5 MG TAB PO SCH (19:42)
[2017-11-06 20:14] LABS: Glucose,Whole Blood 146 mg/dL (75-99)
[2017-11-06] MEDS: DAPTOmycin IN 0.9% NACL 500 MG/10 ML SYRINGE IVP SCH (22:09)
[2017-11-07] MEDS: PIPERACILLIN-TAZOBACTAM 3.375 GM in DEXTROSE/WATER 1 50ML.BAG IVPB SCH ×2 (00:43→08:25)
[2017-11-07 04:52] LABS: Anisocytosis Slight; Basophils % (A) 0 %; Eosinophils # (A) 0.4 k/uL (0-0.7); Eosinophils % (A) 8 %; HCT 31.3 % (34.0-46.0); HGB 9.2 gm/dL (11.4-16.0); Hypochromasia Marked; Lymphocytes % (A) 43 %; MCH 25.1 pg (25.0-35.0); MCHC 29.4 g/dL (31.0-37.0); MCV 85.4 fL (80.0-100.0); Mean Platelet Volume 7.7; Monocytes # (A) 0.3 k/uL (0-1.0); Monocytes % (A) 6 %; Neutrophils % (A) 42 %; Platelet Count 131 k/uL (150-450); Poikilocytosis Slight; RBC 3.67 m/uL (3.80-5.40); RDW 16.6 % (11.5-15.5); WBC 4.7 k/uL (3.8-10.6)
[2017-11-07 05:08] LABS: Calcium 9.3 mg/dL (8.4-10.2); Magnesium 1.5 mg/dL (1.6-2.3); Phosphorus 3.9 mg/dL (2.5-4.5); Potassium 5.1 mmol/L (3.5-5.1)
[2017-11-07] MEDS: MAGNESIUM SULFATE-D5W PMX 1 GM in DEXTROSE/WATER 1 100ML.BAG IVPB SCH ×4 (06:22→22:17)
[2017-11-07] MEDS: SODIUM CHLORIDE 0.9% 1,000 ML IV SCH ×4 (06:24→08:25)
[2017-11-07] MEDS: LEVOTHYROXINE 125 MCG TAB PO SCH (06:30)
--- NOTE | 2017-11-07 06:41 | XR ---
EXAMINATION TYPE: XR chest 1V DATE OF EXAM: 11/07/2017 HISTORY: Pneumonia. REFERENCE: Previous study dated 11/06/2017. FINDINGS: There is a continuing, small left effusion. There is minimal atelectasis at the left lung b ase. Heart size is upper limits of normal. The overall appearance of the chest is unchanged. IMPRESSION: NO SIGNIFICANT INTERVAL CHANGE IN THE APPEARANCE OF THE CHEST.
[2017-11-07 07:03] LABS: Glucose,Whole Blood 153 mg/dL (75-99)
[2017-11-07] MEDS: ENOXAPARIN 40 MG/0.4 ML SYRINGE SQ SCH (08:25)
[2017-11-07] MEDS: DIVALPROEX 500 MG TABLET.DR PO SCH ×3 (08:26→22:37)
[2017-11-07] MEDS: ASPIRIN 81 MG PO SCH (08:26)
[2017-11-07] MEDS: ISOSORBIDE MONONITRATE ER 30 MG TAB.ER.24H PO SCH (08:26)
[2017-11-07] MEDS: RIFAXIMIN 550 MG TABLET PO SCH ×2 (08:26→20:25)
[2017-11-07] MEDS: VENLAFAXINE HCL ER 37.5 MG CAP PO SCH (08:26)
[2017-11-07] MEDS: METOPROLOL TARTRATE 25 MG TAB PO SCH ×2 (08:26→20:24)
[2017-11-07] MEDS: OXYBUTYNIN XL 5 MG TAB.ER.24 PO SCH (08:27)
[2017-11-07] MEDS: NYSTATIN 100,000UNIT/GM CREAM 30 GM TUBE TOPICAL SCH ×2 (08:27→20:24)
[2017-11-07] MEDS: MAGNESIUM OXIDE 400 MG TAB PO SCH ×2 (08:27→20:23)
[2017-11-07] MEDS: INSULIN ASPART 100 UNIT/ML 1 ML 10 ML VIAL SQ SCH ×4 (08:32→20:26)
[2017-11-07] MEDS: ALBUTEROL NEBULIZED 2.5 MG/3 ML INHALATION SCH ×4 (08:44→20:49)
[2017-11-07] MEDS ORDERED: FUROSEMIDE 20 MG TAB PO SCH (09:00)
--- NOTE | 2017-11-07 11:24 | PN ---
PROGRESS NOTE Mrs. Martinez is a 51-year-old female with a history of coronary disease who presented with exacerbation of her COPD. She is feeling well today. She still has some chest discomfort when she takes a deep breath or cough. She has no dizziness. No palpitation. She continues to be in sinus mechanism. There is no evidence of significant tachyarrhythmia. She continues to be at this time on aspirin once a day, Lipitor 40 mg daily, Lasix 20 mg daily, isosorbide mononitrate 30 mg daily, metoprolol tartrate 25 mg twice a day. PHYSICAL EXAMINATION: Blood pressure 104/50 with a heart in the 70s. Lungs with mild decrease in breath sounds. No wheezes. Heart: S1, S2. No S3. No rub. ABDOMEN: Soft, nontender. Extremities no significant edema. LAB DATA: BUN and creatinine 23 and 1.4. Hemoglobin of 9.2. ASSESSMENT: 1. Exacerbation of chronic obstructive pulmonary disease, improving. 2. History of coronary disease, stable. 3. Worsening renal function. 4. History of hypertension. 5. Hyperlipidemia. RECOMMENDATION: Patient will continue current therapy. I will stop her diuretic at this time. Follow her renal function. She should be able to be transferred out of the unit and increase her level activity and depending on her progress, further recommendation will be made. MMODL / IJN: [id number] /
[2017-11-07 11:59] LABS: Glucose,Whole Blood 150 mg/dL (75-99)
[2017-11-07] MEDS: LORazepam 1 MG TAB PO PRN ×2 (13:34→22:17)
[2017-11-07] MEDS: LEVOFLOXACIN 750 MG TAB PO SCH (15:24)
--- NOTE | 2017-11-07 15:25 | P.PN ---
Subjective Progress Note Date: 11/07/17 51-year-old female patient who was hospitalized this afternoon because of generalized weakness, increased shortness of breath, cough and chest congestion and pleuritic left-sided chest pain. The patient is morbidly obese. She has multiple medical problems and comorbidities including history of COPD, obstructive sleep apnea that has not been treated for the time being in addition to coronary artery disease with previous coronary intervention and stenting. In the emergency department, the patient was found to be hypoxic and she was placed on 6 L of oxygen nasal cannula and his saturations up to 90%. She was tachycardic. Her initial lactic acid level was at 3.7 and subsequent level came up to 4.7. The patient had a CAT scan of the chest is alive zinc a CT angios protocol. The contrast to my understanding CT into the subcu venous distention the left upper extremity. The lung windows showed patchy perihilar and basilar pulmonary infiltrate left more than right lung with small pleural effusion. Abdomen grams are noted in the left lower lobe. The patient was found to have mild cardiomegaly. These changes reflect essentially pneumonia. Mediastinum showed no evidence of any masses or lymph nodes. There was calcified hilar and mediastinal lymph nodes seen. The pulmonary arteries were suboptimally opacified due to extravasation of contrast. The patient was started on Levaquin. The patient got moved to the selective unit and following that the patient got moved to the intensive care unit. No IV fluids was given due to lack of IV lines. Based on that a triple lumen catheter was inserted in the left IJ in the intensive care units. The patient was started on fluid resuscitation in addition to broad-spectrum antibiotics utilizing a combination of Zosyn, Levaquin and vancomycin. She has had a remote exposure to MRSA infection in her left ankle. No previous history of MRSA pneumonia. The patient's first set of troponin was at 0.038. She has T-wave inversions on her EKG along with sinus tachycardia and left axis deviation. There are some nonspecific ST segment changes also. Urinalysis was also abnormal with increased white cell count at 124. Influenza screen is been negative. Blood cultures still pending. Apparently the patient has not been eating or drinking over the past few days. She has had increased emesis and she threw up a few times at home. She was in [place] for visitation and she drove back recently. Following that she was seen by Dr. Caldera and she underwent a pain pump insertion for chronic back pain. The site of pain pump insertion and incision site is dry clean and intact at this point. On 2017 the patient is being seen in follow-up. The patient is awake and alert. Her shortness of breath is improved over the past 24 hours. The patient was treated for a pneumonia with a combination of triple antibiotics including dose of Levaquin and vancomycin. Today's chest x-ray shows no significant abnormalities. The patient got resuscitated aggressively with IV fluids. She received more than 3 L of IV fluid in her lactic acid level normalized. She is producing adequate amount of urine output. EKG still showing some T-wave inversions and the troponin levels came down to 0.019. Cardiology intends to perform a cardiac catheterization this patient later stage based on her underlying coronary artery disease. The blood cultures negative thus far. Urine cultures negative. White cell count is down to 6.4. The patient remains on IV heparin. No pleurisy. No chest pain. No change in mental status. No other complaints otherwise. Her CVP is up to 10. The echocardiogram was done and the patient has a preserved LV function with an ejection fraction of 55-60%. No other valvular abnormalities. The patient was seen again today 11/04/2017 in follow-up in the intensive care unit. She is awake and alert in no acute distress. She denies any worsening shortness of breath, cough or congestion. She is maintaining good O2 saturations in the 90s on 2 L/m per nasal cannula. She has been afebrile. No tachypnea, no tachycardia. Hemodynamically stable. Urine was positive for group D enterococcus. Blood cultures reveal no growth. Leukocytosis. Hemoglobin 8.0. Creatinine 1.05. She remains on Zosyn and Levaquin. The patient was seen again today 11/05/2017 as a telemetry overflow in the intensive care unit. She remains awake and alert in no acute distress. She denies any worsening shortness of breath, cough or congestion. She denies any chest pain, palpitations lightheadedness or dizziness. She has been afebrile. Maintaining good O2 saturations in the high 90s on 2 L. Hemodynamically stable. Her urine is positive for enterococcus fascia and VRE. She has been seen by infectious disease. She is currently on daptomycin, Zosyn and Levaquin. No leukocytosis. Hemoglobin 8.2. Creatinine 1.14. On 11/06/2017 the patient is doing well. No specific complaints. It was decided to postpone the cardiac catheterization today later stage. The patient' s family of any chest pain. No respiratory distress. No cough or sputum production. As mentioned earlier, the patient was started on daptomycin regarding a VRE in the urine. She is also on a combination of Zosyn and Levaquin. She is a selective overflow and she'll be moved out of the intensive care units. She is on normal saline at the rate of 20 mL an hour. There has been no significant events overnight otherwise. On 11/07/2017, the patient is doing well complaints. Antibiotic regimen remains a combination of daptomycin and Levaquin. Zosyn has been discontinued. No respiratory distress. No other complaints otherwise. Patient is on the medical floor. Objective - Vital Signs Vital signs: Vital Signs Temp 98.4 F 11/07/17 15:00 Pulse 66 11/07/17 15:00 Resp 16 11/07/17 15:00 BP 99/61 11/07/17 15:00 Pulse Ox 92 L 11/07/17 15:00 Intake & Output 11/06/17 11/07/17 11/07/17 18:59 06:59 18:59 Intake Total 490 210 520 Output Total 1550 1000 700 Balance -1060 -790 -180 Weight 155.5 kg Intake: IV 490 210 160 Magnesium Sulfate-D5w Pmx 200 1 gm In Dextrose/Water 1 100ml.bag @ 100 mls/hr IVPB Q1H [facility] Rx#: [id number] Piperacillin-Tazobactam 3 50 50 .375 gm In Dextrose/Water 1 50ml.bag @ 12.5 mls/hr IVPB Q8HR [facility] Rx#: [id number] Sodium Chloride 0.9% 1, 240 160 160 000 ml @ 20 mls/hr IV . Q24H [facility] Rx#:[id number] Oral 360 Output: Urine 1200 1000 700 Urine/Stool Mix 350 Other: Voiding Method Bedside Commode Bedside Commode Bedside Commode # Bowel Movements 1 1 1 - Exam Morbidly obese, comfortable a mild degree of respiratory distress.Head exam was generally normal. There was no scleral icterus or corneal arcus. Mucous membranes were moist. Neck is supple and short and there is significant crowding of posterior pharynx. There is no goiter or neck masses this point. Lung sounds are diminished bilaterally and coarse crackles are appreciated lung bases most on the left lung base. No wheezes.Cardiac exam revealed the PMI to be normally situated and sized. The rhythm was regular and no extrasystoles were noted during several minutes of auscultation. The first and second heart sounds were normal and physiologic splitting of the second heart sound was noted. There were no murmurs, rubs, clicks, or gallops. Abdomen is obese soft nontender. There is no direct tenderness or rebound tensile guarding. No ascites and organs cannot be accurately palpated. Extremities reveal trace edema and there is no cyanosis or clubbing at this point. Skin is dry clean and intact and the incision site at the site of the pain pump insertion is also intact. Neurologically the patient is awake and alert and there is no focal neurological deficits. Psychiatric the patient is slightly anxious. Her mood is appropriate and her affect is appropriate - Labs CBC & Chem 7: 11/07/17 04:40 11/07/17 04:40 Labs: Abnormal Lab Results - Last 24 Hours (Table) 11/06/17 11/06/17 11/07/17 Range/Units 17:21 20:12 04:40 RBC 3.67 L (3.80-5.40) m/uL Hgb 9.2 L (11.4-16.0) gm/dL Hct 31.3 L (34.0-46.0) % MCHC 29.4 L (31.0-37.0) g/dL RDW 16.6 H (11.5-15.5) % Plt Count 131 L (150-450) k/uL Chloride (98-107) mmol/L Carbon Dioxide (22-30) mmol/L BUN (7-17) mg/dL Creatinine (0.52-1.04) mg/dL Glucose (74-99) mg/dL POC Glucose (mg/dL) 148 H 146 H (75-99) mg/dL Magnesium (1.6-2.3) mg/dL 11/07/17 11/07/17 11/07/17 Range/Units 04:40 07:02 11:28 RBC (3.80-5.40) m/uL Hgb (11.4-16.0) gm/dL Hct (34.0-46.0) % MCHC (31.0-37.0) g/dL RDW (11.5-15.5) % Plt Count (150-450) k/uL Chloride 97 L (98-107) mmol/L Carbon Dioxide 34 H (22-30) mmol/L BUN 23 H (7-17) mg/dL Creatinine 1.40 H (0.52-1.04) mg/dL Glucose 140 H (74-99) mg/dL POC Glucose (mg/dL) 153 H 150 H (75-99) mg/dL Magnesium 1.5 L (1.6-2.3) mg/dL Microbiology - Last 24 Hours (Table) 11/02/17 11:10 Blood Culture - Preliminary Blood No Growth after 120 hours 11/05/17 22:15 Urine Culture - Final Urine,Clean Catch 11/02/17 16:11 Blood Culture - Preliminary Blood No Growth after 96 hours Assessment and Plan Plan: Assessment 1 acute bilateral pneumonia with secondary acute hypoxic respiratory failure. The patient has increased infiltration perihilar and lower lobes more so on the left compared to the right. Clinically the patient has recovered on subsequent chest x-rays have shown no significant pulmonary infiltration. The patient has no significant respiratory distress at this point. 2 acute lactic acidosis secondary to pneumonia and possibly component of intravascular volume depletion, Improved and lactic acid levels have normalized. 3 chest pain, mainly pleuritic on the left probably related to pneumonia. Doubt any acute ischemic coronary event, And a troponin level is down to 0.019. 4 known history of coronary artery disease with previous coronary intervention and stenting and some nonspecific ST segment changes mainly T-wave inversions with limited troponin leak 5 morbid obesity 6 obstructive sleep apnea not on any treatment in terms of CPAP therapy at this point 7 diabetes mellitus 8 chronic renal failure with a component of diabetic nephropathy 9 thyroid cancer with previous thyroidectomy maintained on thyroid hormone replacement 10 hypertension 11 hyperlipidemia 12 left upper extremity swelling at a time of CT angios the chest. There is no evidence of any pulmonary embolism yet the contrast administration was suboptimal due to contrast extravasation 13 questionable liver cirrhosis. The exact etiology is not clear. No signs of portal hypertension based on the recent EGD 14 bipolar disorder/depression 15 chronic anxiety 16 gout 17 small hiatal hernia along with mild gastritis 18 rheumatoid arthritis 19 VRE urinary tract infection currently on daptomycin Plan The patient is doing well. The patient got transferred to a medical floor. Antibiotics include a combination of daptomycin and Levaquin covering for pneumonia and a VRE urinary tract infection. Increased level of activity as tolerated. No plans for cardiac catheterization.
--- NOTE | 2017-11-07 16:32 | P.PN ---
Subjective Progress Note Date: 11/07/17 Principal diagnosis: SOB Still feeling weak and having sob. Staff reported that patient has been very demanding in her care. Objective - Vital Signs Vital signs: Vital Signs Temp 98.4 F 11/07/17 15:00 Pulse 78 11/07/17 16:14 Resp 16 11/07/17 15:00 BP 99/61 11/07/17 15:00 Pulse Ox 100 11/07/17 16:14 Intake & Output 11/06/17 11/07/17 11/07/17 18:59 06:59 18:59 Intake Total 490 210 520 Output Total 1550 1000 700 Balance -1060 -790 -180 Weight 155.5 kg Intake: IV 490 210 160 Magnesium Sulfate-D5w Pmx 200 1 gm In Dextrose/Water 1 100ml.bag @ 100 mls/hr IVPB Q1H [facility] Rx#: [id number] Piperacillin-Tazobactam 3 50 50 .375 gm In Dextrose/Water 1 50ml.bag @ 12.5 mls/hr IVPB Q8HR [facility] Rx#: [id number] Sodium Chloride 0.9% 1, 240 160 160 000 ml @ 20 mls/hr IV . Q24H [facility] Rx#:[id number] Oral 360 Output: Urine 1200 1000 700 Urine/Stool Mix 350 Other: Voiding Method Bedside Commode Bedside Commode Bedside Commode # Bowel Movements 1 1 1 - Exam Constitutional: Morbidly obese, in mild respiratory distress, conversant, pleasant Eyes:Anicteric sclerae, moist conjunctiva, no lid-lag, PERRLA, ENMT: Oropharynx clear, no erythema, exudates Neck: Supple, FROM, no masses, or JVD, No carotid bruits, No thyromegaly Lungs: bilateral expiratory crackles and rhonchi especially at the bases, Clear to percussion, Normal respiratory effort, no accessory muscle use Cardiovascular: Heart regular in rate and rhythm, No murmurs, gallops, or rubs, 1+ pedal edema Abdominal: Soft, obese, Nontender, no guarding, rebound or rigidity, Normoactive bowel sounds, No hepatomegaly, No splenomegaly, No palpable mass Skin: Normal temperature, tone, texture, turgor, no induration, No subcutaneous nodules, No rash, lesions, No ulcers Extremities: No digital cyanosis, No clubbing, Pedal pulses intact and symmetrical, Radial pulses intact and symmetrical, No calf tenderness Psychiatric: Alert and oriented to person, place and time, appropriate affect, intact judgement Neuro: Muscles Strength 5/5 in all 4 extremities, Sensation to light touch grossly present throughout, Cranial nerves II-XII grossly intact, no focal sensory deficits - Labs CBC & Chem 7: 11/07/17 04:40 11/07/17 04:40 Labs: Abnormal Lab Results - Last 24 Hours (Table) 11/06/17 11/06/17 11/07/17 Range/Units 17:21 20:12 04:40 RBC 3.67 L (3.80-5.40) m/uL Hgb 9.2 L (11.4-16.0) gm/dL Hct 31.3 L (34.0-46.0) % MCHC 29.4 L (31.0-37.0) g/dL RDW 16.6 H (11.5-15.5) % Plt Count 131 L (150-450) k/uL Chloride (98-107) mmol/L Carbon Dioxide (22-30) mmol/L BUN (7-17) mg/dL Creatinine (0.52-1.04) mg/dL Glucose (74-99) mg/dL POC Glucose (mg/dL) 148 H 146 H (75-99) mg/dL Magnesium (1.6-2.3) mg/dL 11/07/17 11/07/17 11/07/17 Range/Units 04:40 07:02 11:28 RBC (3.80-5.40) m/uL Hgb (11.4-16.0) gm/dL Hct (34.0-46.0) % MCHC (31.0-37.0) g/dL RDW (11.5-15.5) % Plt Count (150-450) k/uL Chloride 97 L (98-107) mmol/L Carbon Dioxide 34 H (22-30) mmol/L BUN 23 H (7-17) mg/dL Creatinine 1.40 H (0.52-1.04) mg/dL Glucose 140 H (74-99) mg/dL POC Glucose (mg/dL) 153 H 150 H (75-99) mg/dL Magnesium 1.5 L (1.6-2.3) mg/dL Microbiology - Last 24 Hours (Table) 11/02/17 11:10 Blood Culture - Preliminary Blood No Growth after 120 hours 11/05/17 22:15 Urine Culture - Final Urine,Clean Catch 11/02/17 16:11 Blood Culture - Preliminary Blood No Growth after 96 hours Assessment and Plan Plan: 1- Acute severe sepsis/Acute community-acquired pneumonia/Acute hypoxic respiratory failure/Acute exacerbation of diastolic CHF: Lasix held as Cr worsened Continue Levaquin, daptomycin Duonebs. O2 supplement to keep sats >93% Labs reviewed, recheck in a.m. 2- Acute non-ST elevation myocardial infarction: IV heparin d/eduardo Continue statin, aspirin and lopressor. Cath outpatient per cardio Echo done--normal EF. 3- Acute VRE UTI: ID following Started on daptomycin on 11/04. 3- COPD, Diabetes Mellitus type 2, Hyperlipidemia, Hypertension, Liver cirrhosis , Sleep Apnea/CPAP/BIPAP Resume home meds. SSI with BS checks every 6 hours. Duonebs PRN 5- Hypothyroidism: Hormone replacement was held due to TSH Restarted thyroid replacement today at the lower dose 250mcg daily on 11/06. 6-Hypomagnesimia: Replace Continue oral mg oxide 400 mg bid as she has been low through out the admission Recheck in am. 7- DVT prophylaxis: Lovenox s/q
[2017-11-07 17:05] LABS: Glucose,Whole Blood 122 mg/dL (75-99)
[2017-11-07] MEDS: ONDANSETRON 4 MG/2 ML VIAL IVP PRN (17:28)
[2017-11-07] MEDS: LURASIDONE 40 MG TAB PO SCH (17:30)
[2017-11-07] MEDS: ATORVASTATIN 40 MG TAB PO SCH (20:22)
[2017-11-07] MEDS: FAMOTIDINE 20 MG TAB PO SCH (20:23)
[2017-11-07] MEDS: ZOLPIDEM 5 MG TAB PO SCH (20:25)
[2017-11-07 20:27] LABS: Glucose,Whole Blood 173 mg/dL (75-99)
[2017-11-08] MEDS: SODIUM CHLORIDE 0.9% 1,000 ML IV SCH ×2 (00:08→23:22)
[2017-11-08] MEDS: DAPTOmycin IN 0.9% NACL 500 MG/10 ML SYRINGE IVP SCH ×2 (00:37→23:47)
[2017-11-08] MEDS: LEVOTHYROXINE 125 MCG TAB PO SCH (05:41)
[2017-11-08 07:10] LABS: Glucose,Whole Blood 156 mg/dL (75-99)
[2017-11-08 07:31] LABS: Calcium 9.6 mg/dL (8.4-10.2); Magnesium 1.7 mg/dL (1.6-2.3); Phosphorus 3.4 mg/dL (2.5-4.5)
[2017-11-08] MEDS: INSULIN ASPART 100 UNIT/ML 1 ML 10 ML VIAL SQ SCH ×4 (08:54→21:18)
[2017-11-08] MEDS: ENOXAPARIN 40 MG/0.4 ML SYRINGE SQ SCH (08:56)
[2017-11-08] MEDS: ASPIRIN 81 MG PO SCH (08:56)
[2017-11-08] MEDS: OXYBUTYNIN XL 5 MG TAB.ER.24 PO SCH (08:57)
[2017-11-08] MEDS: METOPROLOL TARTRATE 25 MG TAB PO SCH ×2 (08:57→21:19)
[2017-11-08] MEDS: MAGNESIUM OXIDE 400 MG TAB PO SCH ×2 (08:57→21:18)
[2017-11-08] MEDS: DIVALPROEX 500 MG TABLET.DR PO SCH ×3 (08:57→21:20)
[2017-11-08] MEDS: VENLAFAXINE HCL ER 37.5 MG CAP PO SCH (08:57)
[2017-11-08] MEDS: ISOSORBIDE MONONITRATE ER 30 MG TAB.ER.24H PO SCH (08:57)
[2017-11-08] MEDS: RIFAXIMIN 550 MG TABLET PO SCH ×2 (08:57→21:20)
[2017-11-08] MEDS: NYSTATIN 100,000UNIT/GM CREAM 30 GM TUBE TOPICAL SCH ×2 (08:57→21:19)
[2017-11-08] MEDS: ALBUTEROL NEBULIZED 2.5 MG/3 ML INHALATION SCH ×4 (09:14→21:51)
--- NOTE | 2017-11-08 09:56 | XR ---
EXAMINATION TYPE: XR chest 1V portable DATE OF EXAM: 11/08/2017 COMPARISON: 11/07/2017 HISTORY: Shortness of breath TECHNIQUE: Single frontal view of the chest is obtained. FINDINGS: There is improving aeration of the left lung base with minimal residual left basilar subse gmental atelectasis. Remainder the lungs are clear. There is no pulmonary vascular congestion, pleura l effusion, or pneumothorax seen. The cardiac silhouette size is mildly enlarged. Left-sided inter nal jugular central venous catheter remains in unchanged position terminating at the cavoatrial junct ion. The osseous structures are intact. IMPRESSION: Improved aeration of the left lung base with minimal left basilar subsegmental atelectas is.
[2017-11-08] MEDS: MAGNESIUM SULFATE-D5W PMX 1 GM in DEXTROSE/WATER 1 100ML.BAG IVPB SCH ×2 (11:38→13:21)
[2017-11-08 11:47] LABS: Glucose,Whole Blood 139 mg/dL (75-99)
--- NOTE | 2017-11-08 11:58 | P.PN ---
Subjective Progress Note Date: 11/08/17 Principal diagnosis: Acute bilateral pneumonia, with secondary acute hypoxic respiratory failure 51-year-old female patient who was hospitalized this afternoon because of generalized weakness, increased shortness of breath, cough and chest congestion and pleuritic left-sided chest pain. The patient is morbidly obese. She has multiple medical problems and comorbidities including history of COPD, obstructive sleep apnea that has not been treated for the time being in addition to coronary artery disease with previous coronary intervention and stenting. In the emergency department, the patient was found to be hypoxic and she was placed on 6 L of oxygen nasal cannula and his saturations up to 90%. She was tachycardic. Her initial lactic acid level was at 3.7 and subsequent level came up to 4.7. The patient had a CAT scan of the chest is alive zinc a CT angios protocol. The contrast to my understanding CT into the subcu venous distention the left upper extremity. The lung windows showed patchy perihilar and basilar pulmonary infiltrate left more than right lung with small pleural effusion. Abdomen grams are noted in the left lower lobe. The patient was found to have mild cardiomegaly. These changes reflect essentially pneumonia. Mediastinum showed no evidence of any masses or lymph nodes. There was calcified hilar and mediastinal lymph nodes seen. The pulmonary arteries were suboptimally opacified due to extravasation of contrast. The patient was started on Levaquin. The patient got moved to the selective unit and following that the patient got moved to the intensive care unit. No IV fluids was given due to lack of IV lines. Based on that a triple lumen catheter was inserted in the left IJ in the intensive care units. The patient was started on fluid resuscitation in addition to broad-spectrum antibiotics utilizing a combination of Zosyn, Levaquin and vancomycin. She has had a remote exposure to MRSA infection in her left ankle. No previous history of MRSA pneumonia. The patient's first set of troponin was at 0.038. She has T-wave inversions on her EKG along with sinus tachycardia and left axis deviation. There are some nonspecific ST segment changes also. Urinalysis was also abnormal with increased white cell count at 124. Influenza screen is been negative. Blood cultures still pending. Apparently the patient has not been eating or drinking over the past few days. She has had increased emesis and she threw up a few times at home. She was in [place] for visitation and she drove back recently. Following that she was seen by Dr. Caldera and she underwent a pain pump insertion for chronic back pain. The site of pain pump insertion and incision site is dry clean and intact at this point. On 2017 the patient is being seen in follow-up. The patient is awake and alert. Her shortness of breath is improved over the past 24 hours. The patient was treated for a pneumonia with a combination of triple antibiotics including dose of Levaquin and vancomycin. Today's chest x-ray shows no significant abnormalities. The patient got resuscitated aggressively with IV fluids. She received more than 3 L of IV fluid in her lactic acid level normalized. She is producing adequate amount of urine output. EKG still showing some T-wave inversions and the troponin levels came down to 0.019. Cardiology intends to perform a cardiac catheterization this patient later stage based on her underlying coronary artery disease. The blood cultures negative thus far. Urine cultures negative. White cell count is down to 6.4. The patient remains on IV heparin. No pleurisy. No chest pain. No change in mental status. No other complaints otherwise. Her CVP is up to 10. The echocardiogram was done and the patient has a preserved LV function with an ejection fraction of 55-60%. No other valvular abnormalities. The patient was seen again today 11/04/2017 in follow-up in the intensive care unit. She is awake and alert in no acute distress. She denies any worsening shortness of breath, cough or congestion. She is maintaining good O2 saturations in the 90s on 2 L/m per nasal cannula. She has been afebrile. No tachypnea, no tachycardia. Hemodynamically stable. Urine was positive for group D enterococcus. Blood cultures reveal no growth. Leukocytosis. Hemoglobin 8.0. Creatinine 1.05. She remains on Zosyn and Levaquin. The patient was seen again today 11/05/2017 as a telemetry overflow in the intensive care unit. She remains awake and alert in no acute distress. She denies any worsening shortness of breath, cough or congestion. She denies any chest pain, palpitations lightheadedness or dizziness. She has been afebrile. Maintaining good O2 saturations in the high 90s on 2 L. Hemodynamically stable. Her urine is positive for enterococcus fascia and VRE. She has been seen by infectious disease. She is currently on daptomycin, Zosyn and Levaquin. No leukocytosis. Hemoglobin 8.2. Creatinine 1.14. On 11/06/2017 the patient is doing well. No specific complaints. It was decided to postpone the cardiac catheterization today later stage. The patient' s family of any chest pain. No respiratory distress. No cough or sputum production. As mentioned earlier, the patient was started on daptomycin regarding a VRE in the urine. She is also on a combination of Zosyn and Levaquin. She is a selective overflow and she'll be moved out of the intensive care units. She is on normal saline at the rate of 20 mL an hour. There has been no significant events overnight otherwise. On 11/07/2017, the patient is doing well complaints. Antibiotic regimen remains a combination of daptomycin and Levaquin. Zosyn has been discontinued. No respiratory distress. No other complaints otherwise. Patient is on the medical floor. On 11/08/2017 patient is seen in follow-up on surgical floor. Resting in bed, denies any acute distress. States she is still feeling fatigued, but has been gradually increasing activity. Her vital signs are stable, she is on 2 L per nasal cannula with O2 sat 95%. Number dynamically stable. Lung sounds are clear, diminished. She has been afebrile. She continues on daptomycin and Levaquin, for the VRE in the urine, and a bilateral pneumonia. No other significant events overnight, cardiology is planning on doing the heart catheterization on an outpatient basis. Today's chest x-ray shows improved aeration of the left lung base with minimal left basilar subsegmental atelectasis. Lab work was reviewed, no electrolyte abnormality, renal profile continues to improve, B1 is down to 21, creatinine is down to 1.3. Objective - Vital Signs Vital signs: Vital Signs Temp 97.6 F 11/08/17 07:00 Pulse 81 11/08/17 07:00 Resp 15 11/08/17 07:00 BP 108/60 11/08/17 07:00 Pulse Ox 95 11/08/17 07:00 Intake & Output 11/07/17 11/08/17 11/08/17 18:59 06:59 18:59 Intake Total 520 900 Output Total 700 650 Balance -180 250 Intake: IV 160 200 Sodium Chloride 0.9% 1, 160 200 000 ml @ 20 mls/hr IV . Q24H [facility] Rx#:[id number] Intake, IV Titration 200 Amount Magnesium Sulfate-D5w Pmx 100 1 gm In Dextrose/Water 1 100ml.bag @ 100 mls/hr IVPB Q1H [facility] Rx#: [id number] Magnesium Sulfate-D5w Pmx 100 1 gm In Dextrose/Water 1 100ml.bag @ 100 mls/hr IVPB Q1H [facility] Rx#: [id number] Oral 360 500 Output: Urine 700 650 Other: Voiding Method Bedside Commode Bedside Commode # Voids 2 # Bowel Movements 1 1 - Exam Morbidly obese, comfortable a mild degree of respiratory distress.Head exam was generally normal. There was no scleral icterus or corneal arcus. Mucous membranes were moist. Neck is supple and short and there is significant crowding of posterior pharynx. There is no goiter or neck masses this point. Lung sounds are diminished bilaterally. No wheezes.Cardiac exam revealed the PMI to be normally situated and sized. The rhythm was regular and no extrasystoles were noted during several minutes of auscultation. The first and second heart sounds were normal and physiologic splitting of the second heart sound was noted. There were no murmurs, rubs, clicks, or gallops. Abdomen is obese soft nontender. There is no direct tenderness or rebound tensile guarding. No ascites and organs cannot be accurately palpated. Extremities reveal trace edema and there is no cyanosis or clubbing at this point. Skin is dry clean and intact and the incision site at the site of the pain pump insertion is also intact. Neurologically the patient is awake and alert and there is no focal neurological deficits. Psychiatric: Her mood is appropriate and her affect is appropriate - Labs CBC & Chem 7: 11/07/17 04:40 11/08/17 06:43 Labs: Abnormal Lab Results - Last 24 Hours (Table) 11/07/17 11/07/17 11/07/17 Range/Units 11:28 16:51 18:01 BUN (7-17) mg/dL Creatinine (0.52-1.04) mg/dL Glucose (74-99) mg/dL POC Glucose (mg/dL) 150 H 122 H (75-99) mg/dL Magnesium 1.5 L (1.6-2.3) mg/dL 11/07/17 11/08/17 11/08/17 Range/Units 19:57 06:43 07:08 BUN 21 H (7-17) mg/dL Creatinine 1.30 H (0.52-1.04) mg/dL Glucose 158 H (74-99) mg/dL POC Glucose (mg/dL) 173 H 156 H (75-99) mg/dL Magnesium (1.6-2.3) mg/dL 11/08/17 Range/Units 11:43 BUN (7-17) mg/dL Creatinine (0.52-1.04) mg/dL Glucose (74-99) mg/dL POC Glucose (mg/dL) 139 H (75-99) mg/dL Magnesium (1.6-2.3) mg/dL Microbiology - Last 24 Hours (Table) 11/02/17 16:11 Blood Culture - Preliminary Blood No Growth after 120 hours 11/02/17 11:10 Blood Culture - Preliminary Blood No Growth after 120 hours 11/05/17 22:15 Urine Culture - Final Urine,Clean Catch Assessment and Plan Plan: Assessment 1 acute bilateral pneumonia with secondary acute hypoxic respiratory failure. The patient has increased infiltration perihilar and lower lobes more so on the left compared to the right. Clinically the patient has recovered, today's chest x-ray shows improved aeration of the left lung base with minimal left basilar subsegmental atelectasis. Clinically patient has significantly improved and has no signs of respiratory distress at this point. 2 acute lactic acidosis secondary to pneumonia and possibly component of intravascular volume depletion, Improved and lactic acid levels have normalized. 3 chest pain, mainly pleuritic on the left probably related to pneumonia. Doubt any acute ischemic coronary event, And a troponin level is down to 0.019. Cardiology is planning to do a heart catheterization on an outpatient basis. 4 known history of coronary artery disease with previous coronary intervention and stenting and some nonspecific ST segment changes mainly T-wave inversions with limited troponin leak 5 morbid obesity 6 obstructive sleep apnea not on any treatment in terms of CPAP therapy at this point 7 diabetes mellitus 8 chronic renal failure with a component of diabetic nephropathy 9 thyroid cancer with previous thyroidectomy maintained on thyroid hormone replacement 10 hypertension 11 hyperlipidemia 12 left upper extremity swelling at a time of CT angios the chest. There is no evidence of any pulmonary embolism yet the contrast administration was suboptimal due to contrast extravasation 13 questionable liver cirrhosis. The exact etiology is not clear. No signs of portal hypertension based on the recent EGD 14 bipolar disorder/depression 15 chronic anxiety 16 gout 17 small hiatal hernia along with mild gastritis 18 rheumatoid arthritis 19 VRE urinary tract infection currently on daptomycin Plan The patient is doing well. Denies any specific complaints, remains generally weak, we need to increase her activity, have her sit up in the chair and ambulate with assistance. She remains on Levaquin and daptomycin for the bilateral pneumonia and VRE in the urine. We will await ID service recommendation as far as the length of treatment. Today's chest x-ray shows improvement in aeration at the left lung base. Clinically patient continues to improve, denies any chest congestion, denies any increasing shortness of breath. Continue bronchodilators, continue all other medical treatments. I performed a history & physical examination of the patient and discussed their management with my nurse practitioner, Lisa Marques. I reviewed the nurse practitioner's note and agree with the documented findings and plan of care. Lung sounds are diminished. The findings and the impression was discussed with the patient. I attest to the documentation by the nurse practitioner. Time with Patient: Less than 30
[2017-11-08] MEDS: LORazepam 1 MG TAB PO PRN ×2 (13:23→21:17)
--- NOTE | 2017-11-08 14:49 | P.PN ---
Subjective Progress Note Date: 11/08/17 Principal diagnosis: SOB Still feeling exhausted and tired. Objective - Vital Signs Vital signs: Vital Signs Temp 97.6 F 11/08/17 07:00 Pulse 81 11/08/17 07:00 Resp 15 11/08/17 07:00 BP 108/60 11/08/17 07:00 Pulse Ox 95 11/08/17 07:00 Intake & Output 11/07/17 11/08/17 11/08/17 18:59 06:59 18:59 Intake Total 520 900 100 Output Total 700 650 Balance -180 250 100 Intake: IV 160 200 Sodium Chloride 0.9% 1, 160 200 000 ml @ 20 mls/hr IV . Q24H [facility] Rx#:[id number] Intake, IV Titration 200 Amount Magnesium Sulfate-D5w Pmx 100 1 gm In Dextrose/Water 1 100ml.bag @ 100 mls/hr IVPB Q1H [facility] Rx#: [id number] Magnesium Sulfate-D5w Pmx 100 1 gm In Dextrose/Water 1 100ml.bag @ 100 mls/hr IVPB Q1H [facility] Rx#: [id number] Oral 360 500 100 Output: Urine 700 650 Other: Voiding Method Bedside Commode Bedside Commode # Voids 2 2 # Bowel Movements 1 1 - Exam Constitutional: Morbidly obese, in mild respiratory distress, conversant, pleasant Eyes:Anicteric sclerae, moist conjunctiva, no lid-lag, PERRLA, ENMT: Oropharynx clear, no erythema, exudates Neck: Supple, FROM, no masses, or JVD, No carotid bruits, No thyromegaly Lungs: bilateral expiratory crackles and rhonchi especially at the bases, Clear to percussion, Normal respiratory effort, no accessory muscle use Cardiovascular: Heart regular in rate and rhythm, No murmurs, gallops, or rubs, 1+ pedal edema Abdominal: Soft, obese, Nontender, no guarding, rebound or rigidity, Normoactive bowel sounds, No hepatomegaly, No splenomegaly, No palpable mass Skin: Normal temperature, tone, texture, turgor, no induration, No subcutaneous nodules, No rash, lesions, No ulcers Extremities: No digital cyanosis, No clubbing, Pedal pulses intact and symmetrical, Radial pulses intact and symmetrical, No calf tenderness Psychiatric: Alert and oriented to person, place and time, appropriate affect, intact judgement Neuro: Muscles Strength 5/5 in all 4 extremities, Sensation to light touch grossly present throughout, Cranial nerves II-XII grossly intact, no focal sensory deficits - Labs CBC & Chem 7: 11/07/17 04:40 11/08/17 06:43 Labs: Abnormal Lab Results - Last 24 Hours (Table) 11/07/17 11/07/17 11/07/17 Range/Units 16:51 18:01 19:57 BUN (7-17) mg/dL Creatinine (0.52-1.04) mg/dL Glucose (74-99) mg/dL POC Glucose (mg/dL) 122 H 173 H (75-99) mg/dL Magnesium 1.5 L (1.6-2.3) mg/dL 11/08/17 11/08/17 11/08/17 Range/Units 06:43 07:08 11:43 BUN 21 H (7-17) mg/dL Creatinine 1.30 H (0.52-1.04) mg/dL Glucose 158 H (74-99) mg/dL POC Glucose (mg/dL) 156 H 139 H (75-99) mg/dL Magnesium (1.6-2.3) mg/dL Microbiology - Last 24 Hours (Table) 11/02/17 11:10 Blood Culture - Final Blood No Growth after 144 hours 11/02/17 16:11 Blood Culture - Preliminary Blood No Growth after 120 hours 11/05/17 22:15 Urine Culture - Final Urine,Clean Catch Assessment and Plan Plan: 1- Acute severe sepsis/Acute community-acquired pneumonia/Acute hypoxic respiratory failure/Acute exacerbation of diastolic CHF: Lasix held as Cr worsened Continue Levaquin, daptomycin, will d/w ID re: best abx for d/c. Duonebs. O2 supplement to keep sats >93% Labs reviewed, recheck in a.m. 2- Acute non-ST elevation myocardial infarction: IV heparin d/eduardo Continue statin, aspirin and lopressor. Cath outpatient per cardio Echo done--normal EF. 3- Acute VRE UTI: ID following Started on daptomycin on 11/04. 3- COPD, Diabetes Mellitus type 2, Hyperlipidemia, Hypertension, Liver cirrhosis , Sleep Apnea/CPAP/BIPAP Resume home meds. SSI with BS checks every 6 hours. Duonebs PRN 5- Hypothyroidism: Hormone replacement was held due to TSH Restarted thyroid replacement today at the lower dose 250mcg daily on 11/06. 6-Hypomagnesimia: Replace Continue oral mg oxide 400 mg bid as she has been low through out the admission Recheck in am. 7- DVT prophylaxis: Lovenox s/q
[2017-11-08] MEDS: LEVOFLOXACIN 750 MG TAB PO SCH (15:06)
[2017-11-08 17:04] LABS: Glucose,Whole Blood 161 mg/dL (75-99)
[2017-11-08] MEDS: LURASIDONE 40 MG TAB PO SCH (18:24)
[2017-11-08 20:38] LABS: Glucose,Whole Blood 176 mg/dL (75-99)
[2017-11-08] MEDS: ZOLPIDEM 5 MG TAB PO SCH (21:17)
[2017-11-08] MEDS: FAMOTIDINE 20 MG TAB PO SCH (21:18)
[2017-11-08] MEDS: ATORVASTATIN 40 MG TAB PO SCH (21:18)
--- NOTE | 2017-11-08 23:07 | P.PN ---
Subjective Progress Note Date: 11/08/17 Principal diagnosis: Urinary tract infection 51 year old female who presents to [facility] with significant increasing shortness of breath associated with cough significant chest congestion and left-sided chest pain. The chest pain was somewhat atypical. Because of this she presented to Hospital where she was monitored evidence of Loprox oximetry was placed on 6 L of oxygen. She was tachycardic and had an elevated lactic acid level. Computed tomography scan failed to reveal evidence of a pulmonary embolus. However pneumonic infiltrates were seen. The patient transferred to the intensive care unit. Triple-lumen catheter was placed for her IV access because of the great difficulties or having with her access. She received intravenous antibiotic therapy as well as treatment for her underlying coronary artery disease. The patient relates that she used to live in [place]. When she was there she had significant difficulties with stones within her urinary system. She required urological surgical intervention which included stone removal and stent placement. She's had bouts of multiple urinary tract infections over the years. And recently has had multiple urinary tract infection is been on antibiotic therapy. She has evidence of sepsis and urinary tract infection as per the concern as well as pneumonia. With evidence of VRE being isolated the infectious diseases consultation has been requested. She has a history of a chronic pain syndrome and does have a pain pump. Patient is now much improved. She denying difficulties such as fever chills or rigors or sweats. She's been ready for discharge to home. Objective - Vital Signs Vital signs: Vital Signs Temp 97.6 F 11/08/17 15:00 Pulse 73 11/08/17 15:00 Resp 16 11/08/17 15:00 BP 98/58 11/08/17 15:00 Pulse Ox 95 11/08/17 07:00 Intake & Output 11/08/17 11/08/17 11/09/17 06:59 18:59 06:59 Intake Total 900 100 Output Total 650 Balance 250 100 Intake: IV 200 Sodium Chloride 0.9% 1, 200 000 ml @ 20 mls/hr IV . Q24H [facility] Rx#:[id number] Intake, IV Titration 200 Amount Magnesium Sulfate-D5w Pmx 100 1 gm In Dextrose/Water 1 100ml.bag @ 100 mls/hr IVPB Q1H [facility] Rx#: [id number] Magnesium Sulfate-D5w Pmx 100 1 gm In Dextrose/Water 1 100ml.bag @ 100 mls/hr IVPB Q1H [facility] Rx#: [id number] Oral 500 100 Output: Urine 650 Other: Voiding Method Bedside Commode # Voids 2 2 # Bowel Movements 1 - Exam Pleasant obese 51-year-old woman relates she is feeling slightly better now than before. Still has weakness shortness of breath improved chest pain HEENT: Anicteric conjunctiva are pink and moist nasal mucosa grossly intact without significant lesions, there is no thrush. Neck: The neck is supple without significant lymphadenopathy or thyromegaly. Lungs: There is symmetrical air entry. Basilar crackles are heard. No esteban bronchial sounds. No dullness or egophony. Heart: Regular rate and rhythm with an audible S1-S2, no S3 no S4. There is no significant murmur click or rub, PMI was nondisplaced. Abdomen: Obese, Positive bowel sounds soft and nontender without palpable masses or organomegaly. There was no guarding or rebound. Extremities: The upper extremities have excellent pulses they are symmetric, no significant petechiae or telangiectasia. No splinter hemorrhages were noted. Lower extremities have evidence of some edema but knows he can open ulcers are seen Neuro: Awake alert oriented to person place and time. There are no acute new gross focal sensory motor deficits. - Labs CBC & Chem 7: 11/07/17 04:40 11/08/17 06:43 Labs: Abnormal Lab Results - Last 24 Hours (Table) 11/08/17 11/08/17 11/08/17 Range/Units 06:43 07:08 11:43 BUN 21 H (7-17) mg/dL Creatinine 1.30 H (0.52-1.04) mg/dL Glucose 158 H (74-99) mg/dL POC Glucose (mg/dL) 156 H 139 H (75-99) mg/dL 11/08/17 11/08/17 Range/Units 17:02 20:34 BUN (7-17) mg/dL Creatinine (0.52-1.04) mg/dL Glucose (74-99) mg/dL POC Glucose (mg/dL) 161 H 176 H (75-99) mg/dL Microbiology - Last 24 Hours (Table) 11/02/17 16:11 Blood Culture - Final Blood No Growth after 144 hours 11/02/17 11:10 Blood Culture - Final Blood No Growth after 144 hours Laboratory Results WBC 4.7 k/uL (3.8-10.6) 11/07/17 04:40 RBC 3.67 m/uL (3.80-5.40) L 11/07/17 04:40 Hgb 9.2 gm/dL (11.4-16.0) L 11/07/17 04:40 Hct 31.3 % (34.0-46.0) L 11/07/17 04:40 MCV 85.4 fL (80.0-100.0) 11/07/17 04:40 MCH 25.1 pg (25.0-35.0) 11/07/17 04:40 MCHC 29.4 g/dL (31.0-37.0) L 11/07/17 04:40 RDW 16.6 % (11.5-15.5) H 11/07/17 04:40 Plt Count 131 k/uL (150-450) L 11/07/17 04:40 Neutrophils % 42 % 11/07/17 04:40 Neutrophils % (Manual) 63 % 11/02/17 11:10 Band Neutrophils % 4 % 11/02/17 11:10 Lymphocytes % 43 % 11/07/17 04:40 Lymphocytes % (Manual) 20 % 11/02/17 11:10 Monocytes % 6 % 11/07/17 04:40 Monocytes % (Manual) 9 % 11/02/17 11:10 Eosinophils % 8 % 11/07/17 04:40 Eosinophils % (Manual) 1 % 11/02/17 11:10 Basophils % 0 % 11/07/17 04:40 Metamyelocytes % 3 % 11/02/17 11:10 Myelocytes % 1 % 11/02/17 11:10 Neutrophils # 2.0 k/uL (1.3-7.7) 11/07/17 04:40 Neutrophils # (Manual) 8.00 k/uL (1.3-7.7) H 11/02/17 11:10 Lymphocytes # 2.0 k/uL (1.0-4.8) 11/07/17 04:40 Lymphocytes # (Manual) 2.40 k/uL (1.0-4.8) 11/02/17 11:10 Monocytes # 0.3 k/uL (0-1.0) 11/07/17 04:40 Monocytes # (Manual) 1.08 k/uL (0-1.0) H 11/02/17 11:10 Eosinophils # 0.4 k/uL (0-0.7) 11/07/17 04:40 Eosinophils # (Manual) 0.12 k/uL (0-0.7) 11/02/17 11:10 Basophils # 0.0 k/uL (0-0.2) 11/07/17 04:40 Metamyelocytes # (Man) 0.36 k/uL (0) H 11/02/17 11:10 Myelocytes # (Manual) 0.12 k/uL (0) H 11/02/17 11:10 Nucleated RBCs 2 /100 WBC (0-0) H 11/02/17 11:10 Manual Slide Review Performed 11/02/17 11:10 Polychromasia Present 11/02/17 11:10 Hypochromasia Marked 11/07/17 04:40 Poikilocytosis Slight 11/07/17 04:40 Anisocytosis Slight 11/07/17 04:40 PT 10.8 sec (9.0-12.0) 11/02/17 11:10 INR 1.1 (<1.2) 11/02/17 11:10 APTT 44.3 sec (22.0-30.0) H 11/04/17 05:50 D-Dimer 2.44 mg/L FEU (<0.60) H 11/02/17 11:10 Sodium 138 mmol/L (137-145) 11/08/17 06:43 Potassium 5.0 mmol/L (3.5-5.1) 11/08/17 06:43 Chloride 100 mmol/L (98-107) 11/08/17 06:43 Carbon Dioxide 27 mmol/L (22-30) 11/08/17 06:43 Anion Gap 11 mmol/L 11/08/17 06:43 BUN 21 mg/dL (7-17) H 11/08/17 06:43 Creatinine 1.30 mg/dL (0.52-1.04) H 11/08/17 06:43 Est GFR (MDRD) Af Amer 52 (>60 ml/min/1.73 sqM) 11/08/17 06:43 Est GFR (MDRD) Non-Af 43 (>60 ml/min/1.73 sqM) 11/08/17 06:43 Glucose 158 mg/dL (74-99) H 11/08/17 06:43 POC Glucose (mg/dL) 176 mg/dL (75-99) H 11/08/17 20:34 POC Glu Elevator Service Technician Brittani Schulte 11/08/17 20:[address] Glu mg/dL 114 11/03/17 04:30 Hemoglobin A1c 5.6 % (4.0-6.0) 11/03/17 04:30 Lactic Ac Sepsis Rflx Y 11/02/17 22:03 Plasma Lactic Acid Juan 1.0 mmol/L (0.7-2.0) 11/03/17 01:18 Calcium 9.6 mg/dL (8.4-10.2) 11/08/17 06:43 Phosphorus 3.4 mg/dL (2.5-4.5) 11/08/17 06:43 Magnesium 1.7 mg/dL (1.6-2.3) 11/08/17 06:43 Total Bilirubin 0.6 mg/dL (0.2-1.3) 11/02/17 11:10 AST 20 U/L (14-36) 11/02/17 11:10 ALT 27 U/L (9-52) 11/02/17 11:10 Alkaline Phosphatase 82 U/L (38-126) 11/02/17 11:10 Total Creatine Kinase 28 U/L (30-135) L 11/03/17 11:05 CK-MB (CK-2) 0.8 ng/mL (0.0-2.4) 11/03/17 11:05 CK-MB (CK-2) Rel Index 2.9 11/03/17 11:05 Troponin I 0.019 ng/mL (0.000-0.034) 11/03/17 11:05 NT-Pro-B Natriuret Pep 28076 pg/mL 11/02/17 11:10 Total Protein 6.7 g/dL (6.3-8.2) 11/02/17 11:10 Albumin 3.8 g/dL (3.5-5.0) 11/02/17 11:10 TSH 0.054 mIU/L (0.465-4.680) L 11/02/17 11:10 Urine Color Light Yellow 11/05/17 22:15 Urine Appearance Clear (Clear) 11/05/17 22:15 Urine pH 6.5 (5.0-8.0) 11/05/17 22:15 Ur Specific [place] 1.013 (1.001-1.035) 11/05/17 22:15 Urine Protein Negative (Negative) 11/05/17 22:15 Urine Glucose (UA) Negative (Negative) 11/05/17 22:15 Urine Ketones Negative (Negative) 11/05/17 22:15 Urine Blood Negative (Negative) 11/05/17 22:15 Urine Nitrite Negative (Negative) 11/05/17 22:15 Urine Bilirubin Negative (Negative) 11/05/17 22:15 Urine Urobilinogen <2.0 mg/dL (<2.0) 11/05/17 22:15 Ur Leukocyte Esterase Moderate (Negative) H 11/05/17 22:15 Urine RBC 3 /hpf (0-5) 11/05/17 22:15 Urine WBC 27 /hpf (0-5) H 11/05/17 22:15 Ur Squamous Epith Cells <1 /hpf (0-4) 11/05/17 22:15 Urine Bacteria Rare /hpf (None) H 11/02/17 11:30 Urine Mucus Rare /hpf (None) H 11/05/17 22:15 Stool Occult Blood Negative (Negative) 11/02/17 09:50 Influenza Type A RNA Not Detected (Not Detectd) 11/02/17 11:10 Influenza Type B (PCR) Not Detected (Not Detectd) 11/02/17 11:10 Urine Legionella Ag Not detected (Not detected) 11/05/17 22:15 Microbiology 11/02/17 16:11 Blood Blood Culture - Final No Growth after 144 hours 11/02/17 11:10 Blood Blood Culture - Final No Growth after 144 hours 11/05/17 22:15 Urine,Clean Catch Urine Culture - Final 11/02/17 11:30 Urine,Clean Catch Urine Culture - Final Enterococcus faecium VRE Assessment and Plan (1) Pneumonia Current Visit: Yes Status: Acute Code(s): J18.9 - PNEUMONIA, UNSPECIFIED ORGANISM SNOMED Code(s): 459914296 (2) Acute UTI Current Visit: No Status: Acute Code(s): N39.0 - URINARY TRACT INFECTION, SITE NOT SPECIFIED SNOMED Code(s): 149292986 (3) Vancomycin resistant Enterococcus infection Narrative/Plan: 51-year-old female presents to Hospital feeling poorly with shortness of breath cough or chest pain malaise find evidence of sepsis at admission. Concerns pneumonia by her chest x-ray as well as hypoxia after evaluation. Required transferred to intensive care unit triple-lumen catheters in place and she's been receiving intravenous antibiotic therapy. Her pulmonary status is improving but she continues to feel quite poorly. She does have a chronic history of urinary infections. She's had multiple courses of antibiotics over the last year. He did have urological surgical intervention several years ago when she was in [place] because of stone and obstruction and required a stent to be placed at that time. Patient has evidence of urinary tract infection and VRE is an isolated. Daptomycin is added to the treatment, receiving Zosyn and Levaquin for concerns to pneumonia. She has had improvement of her pulmonary status. Given her many difficulties assessment for Legionella was done and is negative. For the treatment of the VRE Macrodantin 100 mg twice per day will be utilized , she is on 2 antipsychotics and y Zyvox would not be an option orally at discharge. Only atelectasis is seen in her chest x-ray. If she is readied for discharge in the morning the Zosyn may be discontinued as she transitions to Macrobid. Current Visit: Yes Status: Acute Code(s): A49.1 - STREPTOCOCCAL INFECTION, UNSPECIFIED SITE; Z16.21 - RESISTANCE TO VANCOMYCIN SNOMED Code(s): 325010928
[2017-11-09 01:58] VITALS: RESP 16; TEMP 98
[2017-11-09] MEDS: LEVOTHYROXINE 125 MCG TAB PO SCH (06:43)
[2017-11-09 07:13] LABS: Glucose,Whole Blood 172 mg/dL (75-99)
[2017-11-09 08:00] VITALS: BP 110/57; PULSE 79
[2017-11-09] MEDS: INSULIN ASPART 100 UNIT/ML 1 ML 10 ML VIAL SQ SCH ×3 (08:02→13:11)
--- NOTE | 2017-11-09 08:49 | P.PN ---
Subjective Progress Note Date: 11/09/17 Principal diagnosis: Acute bilateral pneumonia, with secondary acute hypoxic respiratory failure 51-year-old female patient who was hospitalized this afternoon because of generalized weakness, increased shortness of breath, cough and chest congestion and pleuritic left-sided chest pain. The patient is morbidly obese. She has multiple medical problems and comorbidities including history of COPD, obstructive sleep apnea that has not been treated for the time being in addition to coronary artery disease with previous coronary intervention and stenting. In the emergency department, the patient was found to be hypoxic and she was placed on 6 L of oxygen nasal cannula and his saturations up to 90%. She was tachycardic. Her initial lactic acid level was at 3.7 and subsequent level came up to 4.7. The patient had a CAT scan of the chest is alive zinc a CT angios protocol. The contrast to my understanding CT into the subcu venous distention the left upper extremity. The lung windows showed patchy perihilar and basilar pulmonary infiltrate left more than right lung with small pleural effusion. Abdomen grams are noted in the left lower lobe. The patient was found to have mild cardiomegaly. These changes reflect essentially pneumonia. Mediastinum showed no evidence of any masses or lymph nodes. There was calcified hilar and mediastinal lymph nodes seen. The pulmonary arteries were suboptimally opacified due to extravasation of contrast. The patient was started on Levaquin. The patient got moved to the selective unit and following that the patient got moved to the intensive care unit. No IV fluids was given due to lack of IV lines. Based on that a triple lumen catheter was inserted in the left IJ in the intensive care units. The patient was started on fluid resuscitation in addition to broad-spectrum antibiotics utilizing a combination of Zosyn, Levaquin and vancomycin. She has had a remote exposure to MRSA infection in her left ankle. No previous history of MRSA pneumonia. The patient's first set of troponin was at 0.038. She has T-wave inversions on her EKG along with sinus tachycardia and left axis deviation. There are some nonspecific ST segment changes also. Urinalysis was also abnormal with increased white cell count at 124. Influenza screen is been negative. Blood cultures still pending. Apparently the patient has not been eating or drinking over the past few days. She has had increased emesis and she threw up a few times at home. She was in [place] for visitation and she drove back recently. Following that she was seen by Dr. Caldera and she underwent a pain pump insertion for chronic back pain. The site of pain pump insertion and incision site is dry clean and intact at this point. On 2017 the patient is being seen in follow-up. The patient is awake and alert. Her shortness of breath is improved over the past 24 hours. The patient was treated for a pneumonia with a combination of triple antibiotics including dose of Levaquin and vancomycin. Today's chest x-ray shows no significant abnormalities. The patient got resuscitated aggressively with IV fluids. She received more than 3 L of IV fluid in her lactic acid level normalized. She is producing adequate amount of urine output. EKG still showing some T-wave inversions and the troponin levels came down to 0.019. Cardiology intends to perform a cardiac catheterization this patient later stage based on her underlying coronary artery disease. The blood cultures negative thus far. Urine cultures negative. White cell count is down to 6.4. The patient remains on IV heparin. No pleurisy. No chest pain. No change in mental status. No other complaints otherwise. Her CVP is up to 10. The echocardiogram was done and the patient has a preserved LV function with an ejection fraction of 55-60%. No other valvular abnormalities. The patient was seen again today 11/04/2017 in follow-up in the intensive care unit. She is awake and alert in no acute distress. She denies any worsening shortness of breath, cough or congestion. She is maintaining good O2 saturations in the 90s on 2 L/m per nasal cannula. She has been afebrile. No tachypnea, no tachycardia. Hemodynamically stable. Urine was positive for group D enterococcus. Blood cultures reveal no growth. Leukocytosis. Hemoglobin 8.0. Creatinine 1.05. She remains on Zosyn and Levaquin. The patient was seen again today 11/05/2017 as a telemetry overflow in the intensive care unit. She remains awake and alert in no acute distress. She denies any worsening shortness of breath, cough or congestion. She denies any chest pain, palpitations lightheadedness or dizziness. She has been afebrile. Maintaining good O2 saturations in the high 90s on 2 L. Hemodynamically stable. Her urine is positive for enterococcus fascia and VRE. She has been seen by infectious disease. She is currently on daptomycin, Zosyn and Levaquin. No leukocytosis. Hemoglobin 8.2. Creatinine 1.14. On 11/06/2017 the patient is doing well. No specific complaints. It was decided to postpone the cardiac catheterization today later stage. The patient' s family of any chest pain. No respiratory distress. No cough or sputum production. As mentioned earlier, the patient was started on daptomycin regarding a VRE in the urine. She is also on a combination of Zosyn and Levaquin. She is a selective overflow and she'll be moved out of the intensive care units. She is on normal saline at the rate of 20 mL an hour. There has been no significant events overnight otherwise. On 11/07/2017, the patient is doing well complaints. Antibiotic regimen remains a combination of daptomycin and Levaquin. Zosyn has been discontinued. No respiratory distress. No other complaints otherwise. Patient is on the medical floor. On 11/08/2017 patient is seen in follow-up on surgical floor. Resting in bed, denies any acute distress. States she is still feeling fatigued, but has been gradually increasing activity. Her vital signs are stable, she is on 2 L per nasal cannula with O2 sat 95%. Hemodynamically stable. Lung sounds are clear, diminished. She has been afebrile. She continues on daptomycin and Levaquin, for the VRE in the urine, and a bilateral pneumonia. No other significant events overnight, cardiology is planning on doing the heart catheterization on an outpatient basis. Today's chest x-ray shows improved aeration of the left lung base with minimal left basilar subsegmental atelectasis. Lab work was reviewed, no electrolyte abnormality, renal profile continues to improve, B1 is down to 21, creatinine is down to 1.3. On 11/09/2017 patient seen in follow-up. Doing very well, on room air, O2 sat is 92-95%. Respirations are even and nonlabored, patient has been ambulating just within the room, tolerating activity well. Denies any specific complaints , denies any worsening dyspnea. Lung sounds are clear, diminished at the bases. She denies fever, chills or sweats. She is ready for discharge home. She was seen by ID service last night. They recommended Macrodantin 100 mg twice a day for the VRE in the urine. Upon discharge Zosyn, Zyvox and Levaquin will be discontinued. Objective - Vital Signs Vital signs: Vital Signs Temp 98.0 F 11/09/17 07:00 Pulse 79 11/09/17 07:00 Resp 16 11/09/17 07:00 BP 110/57 11/09/17 07:00 Pulse Ox 95 11/09/17 07:00 Intake & Output 11/08/17 11/09/17 11/09/17 18:59 06:59 18:59 Intake Total 100 Balance 100 Weight 149.2 kg Intake: Oral 100 Other: Voiding Method Bedside Commode Toilet # Voids 2 0 - Exam Morbidly obese, comfortable a mild degree of respiratory distress.Head exam was generally normal. There was no scleral icterus or corneal arcus. Mucous membranes were moist. Neck is supple and short and there is significant crowding of posterior pharynx. There is no goiter or neck masses this point. Lung sounds are diminished bilaterally. No wheezes.Cardiac exam revealed the PMI to be normally situated and sized. The rhythm was regular and no extrasystoles were noted during several minutes of auscultation. The first and second heart sounds were normal and physiologic splitting of the second heart sound was noted. There were no murmurs, rubs, clicks, or gallops. Abdomen is obese soft nontender. There is no direct tenderness or rebound tensile guarding. No ascites and organs cannot be accurately palpated. Extremities reveal trace edema and there is no cyanosis or clubbing at this point. Skin is dry clean and intact and the incision site at the site of the pain pump insertion is also intact. Neurologically the patient is awake and alert and there is no focal neurological deficits. Psychiatric: Her mood is appropriate and her affect is appropriate - Labs CBC & Chem 7: 11/07/17 04:40 11/08/17 06:43 Labs: Abnormal Lab Results - Last 24 Hours (Table) 11/08/17 11/08/17 11/08/17 Range/Units 11:43 17:02 20:34 POC Glucose (mg/dL) 139 H 161 H 176 H (75-99) mg/dL Magnesium (1.6-2.3) mg/dL 01/09/18 01/09/18 Range/Units 07:09 07:25 POC Glucose (mg/dL) 172 H (75-99) mg/dL Magnesium 1.5 L (1.6-2.3) mg/dL Microbiology - Last 24 Hours (Table) 11/02/17 16:11 Blood Culture - Final Blood No Growth after 144 hours 11/02/17 11:10 Blood Culture - Final Blood No Growth after 144 hours Assessment and Plan Plan: Assessment 1 acute bilateral pneumonia with secondary acute hypoxic respiratory failure. The patient has increased infiltration perihilar and lower lobes more so on the left compared to the right. Clinically the patient has recovered, today's chest x-ray shows improved aeration of the left lung base with minimal left basilar subsegmental atelectasis. Clinically patient has significantly improved and has no signs of respiratory distress at this point. 2 acute lactic acidosis secondary to pneumonia and possibly component of intravascular volume depletion, Improved and lactic acid levels have normalized. 3 chest pain, mainly pleuritic on the left probably related to pneumonia. Doubt any acute ischemic coronary event, And a troponin level is down to 0.019. Cardiology is planning to do a heart catheterization on an outpatient basis. 4 known history of coronary artery disease with previous coronary intervention and stenting and some nonspecific ST segment changes mainly T-wave inversions with limited troponin leak 5 morbid obesity 6 obstructive sleep apnea not on any treatment in terms of CPAP therapy at this point 7 diabetes mellitus 8 chronic renal failure with a component of diabetic nephropathy 9 thyroid cancer with previous thyroidectomy maintained on thyroid hormone replacement 10 hypertension 11 hyperlipidemia 12 left upper extremity swelling at a time of CT angios the chest. There is no evidence of any pulmonary embolism yet the contrast administration was suboptimal due to contrast extravasation 13 questionable liver cirrhosis. The exact etiology is not clear. No signs of portal hypertension based on the recent EGD 14 bipolar disorder/depression 15 chronic anxiety 16 gout 17 small hiatal hernia along with mild gastritis 18 rheumatoid arthritis 19 VRE urinary tract infection currently on daptomycin Plan Patient continues to improve, denies any specific complaints, denies any worsening dyspnea. Continue to increase her activity. She is currently on room air. She was seen by ID service last night, who is recommending oral Macrodantin after discharge for her VRE in the urine. She is much improved from pulmonary standpoint, lung sounds are clear, diminished. No new lab work or chest x-ray today. She is clear for discharge from pulmonary standpoint. She will need follow-up appointment with Dr. Mcleod in the office in 7-10 days. I performed a history & physical examination of the patient and discussed their management with my nurse practitioner, Lisa Marques. I reviewed the nurse practitioner's note and agree with the documented findings and plan of care. Lung sounds are diminished. The findings and the impression was discussed with the patient. I attest to the documentation by the nurse practitioner. Time with Patient: Less than 30
[2017-11-09] MEDS: ISOSORBIDE MONONITRATE ER 30 MG TAB.ER.24H PO SCH (09:03)
[2017-11-09] MEDS: RIFAXIMIN 550 MG TABLET PO SCH (09:03)
[2017-11-09] MEDS: ENOXAPARIN 40 MG/0.4 ML SYRINGE SQ SCH (09:03)
[2017-11-09] MEDS: METOPROLOL TARTRATE 25 MG TAB PO SCH (09:03)
[2017-11-09] MEDS: OXYBUTYNIN XL 5 MG TAB.ER.24 PO SCH (09:03)
[2017-11-09] MEDS: ASPIRIN 81 MG PO SCH (09:03)
[2017-11-09] MEDS: MAGNESIUM OXIDE 400 MG TAB PO SCH (09:03)
[2017-11-09] MEDS: DIVALPROEX 500 MG TABLET.DR PO SCH (09:03)
[2017-11-09] MEDS: VENLAFAXINE HCL ER 37.5 MG CAP PO SCH (09:03)
[2017-11-09] MEDS: NYSTATIN 100,000UNIT/GM CREAM 30 GM TUBE TOPICAL SCH (09:04)
[2017-11-09] MEDS: ALBUTEROL NEBULIZED 2.5 MG/3 ML INHALATION SCH ×2 (09:43→13:06)
[2017-11-09] MEDS: MAGNESIUM SULFATE-D5W PMX 1 GM in DEXTROSE/WATER 1 100ML.BAG IVPB SCH ×2 (10:09→11:24)
[2017-11-09 11:14] LABS: Glucose,Whole Blood 198 mg/dL (75-99)
[2017-11-09] MEDS: ONDANSETRON 4 MG/2 ML VIAL IVP PRN (13:51)
[2017-11-09 13:59] VITALS: BMI 50.0
--- NOTE | 2017-11-09 17:20 | P.DS ---
Providers Date of admission: 11/02/17 15:43 Expected date of discharge: 11/09/17 Attending physician: Chukc Squires MD Consults: 11/02/17 17:06 Consult Physician Stat Consulting Provider: Wicho Mcleod Consult Reason/Comments: sepsis Do you want consulting provider notified?: Already Contacted 11/02/17 17:42 Consult Physician Routine Consulting Provider: Gamaliel Diaz Consult Reason/Comments: [place] Do you want consulting provider notified?: Yes 11/04/17 18:28 Consult Physician Routine Consulting Provider: Tyson Bloanos Consult Reason/Comments: VRE Do you want consulting provider notified?: Yes Primary care physician: Physician Nonstaff Hospital Course: 51-year-old female who presented to the emergency department complaining of difficulty breathing. She also had associated cough, chest pain located in the left side of the chest and was having fever and chills. The chest pain was without radiation, felt like a pressure. In addition patient had general weakness, fatigue and diaphoresis. Patient stated exertion made her symptoms worse. She has also noticed that her legs were becoming swollen. Patient stated she did have a long trip to [place] a week before admission and then when she got back she had a dilaudid pump placed in her back. In the emergency department, the patient was found to be hypoxic and she was placed on 6 L of oxygen nasal cannula to get saturations up to 90%. She was tachycardic. Influenza screen was negative. Her initial lactic acid level was at 3.7 and subsequent level came up to 4.7. The patient had a CAT scan of the chest with contrast, PE protocol but unfortunately the contrast extravasated and her left arm and that made excluding pulmonary embolus difficult. Otherwise his CT showed patchy perihilar and basilar pulmonary infiltrate left more than right lung with small pleural effusion. She also did have mild cardiomegaly as well as pulmonary edema. These changes were consistent with pneumonia and congestive heart failure. She also met sepsis criteria because she had some leukocytosis, tachycardia and had a source of infection, the community-acquired pneumonia. Because of the sepsis she was treated with broad-spectrum antibiotics including Zosyn, vancomycin and Levaquin. Initially patient she was admitted to the selective unit and following that the patient got moved to the intensive care unit. No IV fluids was given in the emergency department due to lack of IV lines. A triple lumen catheter was inserted in the left IJ in the intensive care units by Dr. Mcleod. After that she was started on fluid resuscitation per sepsis protocol Patient was also diagnosed with acute non-ST elevation myocardial infarction as her troponins were high and she did have some flipped T waves and ST depression on the EKG. She was treated with IV heparin for 48 hours, was started on aspirin and lopressor. He was already on statin and that was continued. Cardiology was consulted and a troponin was cycled. Cardiology elected to do the heart catheterization as an outpatient. Her blood cultures remained negative but the urine cultures revealed VRE, sensitive only to Macrobid, daptomycin, gentamicin and linezolid. She was seen in consultation with ID physician Dr. Bolanos, she was switched from vancomycin to daptomycin. She was also noted to have a very low TSH, further history revealed that patient was started on a second thyroid replacement therapy a few months back in addition to maximizing levothyroxine dose. The thyroid hormone replacement was held for about 3-4 days and then resumed at a lower dose. Patient was instructed to follow-up with her primary care physician to get a follow-up TSH level within a few months. Patient was seen by physical therapy but she was not deemed a candidate for rehabilitation. I discussed the case with Dr. Bolanos who recommended discontinuing the Zosyn on the day of discharge and switching antibiotic regimen to only Macrobid 100 mg by mouth twice a day for 7 more days to treat the VRE in the urine. Patient was instructed to follow-up with cardiology as well as primary care physician in the office as soon as possible after discharge. Time of discharge 40 minutes. Plan - Discharge Summary Discharge Rx Participant: Yes New Discharge Prescriptions: New Nitrofurantoin Monohyd/M-Cryst [Macrobid] 100 mg PO Q12HR #14 cap Aspirin 81 mg PO DAILY 90 Days #90 chew Isosorbide Mononitrate ER [Imdur] 30 mg PO DAILY tab.er.24h Magnesium Oxide [Mag-Ox] 400 mg PO TID 30 Days #90 tab Metoprolol Tartrate [Lopressor] 25 mg PO BID 30 Days #30 tab Nitrofurantoin Monohyd/M-Cryst [Macrobid] 100 mg PO Q12HR 7 Days #14 cap Continue Pioglitazone [Actos] 15 mg PO DAILY LORazepam [Ativan] 1 mg PO BID PRN PRN Reason: Anxiety glipiZIDE [Glucotrol] 5 mg PO AC-BID Atorvastatin [Lipitor] 20 mg PO HS Zolpidem [Ambien] 10 mg PO HS Venlafaxine HCl ER [Effexor XR] 37.5 mg PO DAILY Divalproex Sodium [Depakote] 500 mg PO TID Lurasidone HCl [Latuda] 20 mg PO W/SUPPER metFORMIN HCL [Glucophage] 1,000 mg PO BID Tolterodine ER [Detrol LA] 4 mg PO DAILY Rifaximin [Xifaxan] 550 mg PO BID Ranitidine HCl [Zantac] 300 mg PO HS Nystatin 100,000Unit/gm Cream [Mycostatin Cream] 1 applic TOPICAL BID Levothyroxine Sodium [Synthroid] 300 mcg PO DAILY Ergocalciferol (Vitamin D2) [Vitamin D2] 50,000 unit PO WE Dilaudid 1 dose .ROUTE DIRECTED Ondansetron HCl [Zofran] 8 mg PO Q8H PRN PRN Reason: Nausea Discontinued Liothyronine Sodium [Cytomel] 5 mcg PO DAILY Discharge Medication List Atorvastatin [Lipitor] 20 mg PO HS 04/05/17 [History] Divalproex Sodium [Depakote] 500 mg PO TID 04/05/17 [History] LORazepam [Ativan] 1 mg PO BID PRN 04/05/17 [History] Lurasidone HCl [Latuda] 20 mg PO W/SUPPER 04/05/17 [History] Pioglitazone [Actos] 15 mg PO DAILY 04/05/17 [History] Venlafaxine HCl ER [Effexor XR] 37.5 mg PO DAILY 04/05/17 [History] Zolpidem [Ambien] 10 mg PO HS 04/05/17 [History] glipiZIDE [Glucotrol] 5 mg PO AC-BID 04/05/17 [History] Dilaudid 1 dose .ROUTE DIRECTED 11/02/17 [History] Ergocalciferol (Vitamin D2) [Vitamin D2] 50,000 unit PO WE 11/02/17 [History] Levothyroxine Sodium [Synthroid] 300 mcg PO DAILY 11/02/17 [History] Nystatin 100,000Unit/gm Cream [Mycostatin Cream] 1 applic TOPICAL BID 11/02/17 [ History] Ondansetron HCl [Zofran] 8 mg PO Q8H PRN 11/02/17 [History] Ranitidine HCl [Zantac] 300 mg PO HS 11/02/17 [History] Rifaximin [Xifaxan] 550 mg PO BID 11/02/17 [History] Tolterodine ER [Detrol LA] 4 mg PO DAILY 11/02/17 [History] metFORMIN HCL [Glucophage] 1,000 mg PO BID 11/02/17 [History] Nitrofurantoin Monohyd/M-Cryst [Macrobid] 100 mg PO Q12HR #14 cap 11/08/17 [Rx] Aspirin 81 mg PO DAILY 90 Days #90 chew 11/09/17 [Rx] Isosorbide Mononitrate ER [Imdur] 30 mg PO DAILY tab.er.24h 11/09/17 [Rx] Magnesium Oxide [Mag-Ox] 400 mg PO TID 30 Days #90 tab 11/09/17 [Rx] Metoprolol Tartrate [Lopressor] 25 mg PO BID 30 Days #30 tab 11/09/17 [Rx] Nitrofurantoin Monohyd/M-Cryst [Macrobid] 100 mg PO Q12HR 7 Days #14 cap [Rx] Follow up Appointment(s)/Referral(s): Nonstaff,Physician [Primary Care Provider] - 1-2 days Wicho Mcleod MD [STAFF PHYSICIAN] - 11/30/17 8:30 am (This is the soonest appointment the office has open right now please feel free to call and try for something sooner) Activity/Diet/Wound Care/Special Instructions: [facility] will follow up 24-48hrs post discharge. Their phone number for questions is [phone]. Discharge Disposition: HOME SELF-CARE
[2017-11-10 00:41] LABS: Mycoplasma IgM Antibody 0.64 INDEX (<=0.90)
== END 2017-11-09 14:58 | disposition home health service (06) | DRG 871 ==
LOC: EC 10:37 → 6SEL 15:43 → 6ICU 18:04 → 3SUR 11-07 10:44
PROVIDERS: ADMIT Internal Medicine; ATTEND Internal Medicine
PROC: 05HN33Z Insertion of Infusion Device into Left Internal Jugular Vein, Percutaneous Approach (ICD-10-PCS; principal; 2017-11-02)
DX: A41.9 Sepsis, unspecified organism (principal); I21.4 Non-ST elevation (NSTEMI) myocardial infarction; J96.21 Acute and chronic respiratory failure with hypoxia; I13.0 Hypertensive heart and chronic kidney disease with heart failure and stage 1 through stage 4 chronic kidney disease, or unspecified chronic kidney disease; E87.2 Acidosis; E11.21 Type 2 diabetes mellitus with diabetic nephropathy; J18.9 Pneumonia, unspecified organism; I50.9 Heart failure, unspecified; J44.0 Chronic obstructive pulmonary disease with (acute) lower respiratory infection; J44.1 Chronic obstructive pulmonary disease with (acute) exacerbation; N39.0 Urinary tract infection, site not specified; T80.818A Extravasation of other vesicant agent, initial encounter; B95.2 Enterococcus as the cause of diseases classified elsewhere; E11.22 Type 2 diabetes mellitus with diabetic chronic kidney disease; E66.01 Morbid (severe) obesity due to excess calories; E78.5 Hyperlipidemia, unspecified; E89.0 Postprocedural hypothyroidism; F31.9 Bipolar disorder, unspecified; F41.9 Anxiety disorder, unspecified; G47.33 Obstructive sleep apnea (adult) (pediatric); G89.4 Chronic pain syndrome; I25.10 Atherosclerotic heart disease of native coronary artery without angina pectoris; K29.70 Gastritis, unspecified, without bleeding; K44.9 Diaphragmatic hernia without obstruction or gangrene; K74.60 Unspecified cirrhosis of liver; L98.9 Disorder of the skin and subcutaneous tissue, unspecified; M06.9 Rheumatoid arthritis, unspecified; M10.9 Gout, unspecified; N18.9 Chronic kidney disease, unspecified; R65.20 Severe sepsis without septic shock; Z96.653 Presence of artificial knee joint, bilateral; Z16.21 Resistance to vancomycin; Z79.82 Long term (current) use of aspirin; Z79.899 Other long term (current) drug therapy; Z85.850 Personal history of malignant neoplasm of thyroid; Z86.14 Personal history of Methicillin resistant Staphylococcus aureus infection; Z87.440 Personal history of urinary (tract) infections; Z90.710 Acquired absence of both cervix and uterus; Z95.5 Presence of coronary angioplasty implant and graft; Z79.890 Hormone replacement therapy
CPT/HCPCS: 36415; 71045; 71046; 71275; 80048; 80053; 81001; 82272; 82550; 82553; 83036; 83605; 83735; 83880; 84100; 84132; 84443; 84484; 85025; 85379; 85610; 85730; 86738; 87040; 87077; 87086; 87186; 87449; 87502; 93005; 93306; 94640; 94760; 96365; 99285